=== PATIENT | male | born 1955 | race Caucasian/White ===

== ENCOUNTER 2025-06-30 20:13 | Inpatient (IN) | payer MEDICARE, SELFPAY ==
[2025-06-30] VITALS (11 sets, daily range): BP systolic 118–168; BP diastolic 72–91; PULSE 110–150; RESP 16–25; TEMP 36.3–36.8; O2SAT 90–97; BMI 27.8; BMI 24.9
--- OUTSIDE RECORDS SUMMARY | 2025-06-30 20:24 | XMS_ITS | Clinical Summary ---
Author Organization [facility] Address [address] [place] [address] Phone Care Team Providers Care Pharmacometrician Name Role Phone Unavailable Unavailable Conditions or Problems No information available. Medications No information available. Medications Administered No information available. Allergies, Adverse Reactions, Alerts No information available. Results No information available. Plan of Care No information available. Procedures No information available. Vital Signs No information available. Immunizations No information available. Advance Directives No information available.
--- NOTE | 2025-06-30 20:25 | XR_ITS ---
PROCEDURE INFORMATION: Exam: XR Chest Exam date and time: 06/30/2025 8:54 PM Age: 69 years old Clinical indication: Dyspnea TECHNIQUE: Imaging protocol: Radiologic exam of the chest. Views: 1 view. COMPARISON: No relevant prior studies available. FINDINGS: Lungs: Moderate right lower lobe consolidative atelectasis of indeterminate age. Left lung appears clear Pleural spaces: Unremarkable. No pleural effusion. No pneumothorax. Heart/Mediastinum: Unremarkable. No cardiomegaly. Diaphragm: Eventration of the lateral portion of the right hemidiaphragm Bones/joints: Moderate degenerative changes of the spine. No acute osseous abnormality IMPRESSION: Moderate right lower lobe consolidative atelectasis may represent bland atelectasis or pneumonia
--- NOTE | 2025-06-30 20:28 | HMH.EDGENADL ---
Discharge Plan Disposition Chief Complaint: Shortness of Breath/Dyspnea Prescriptions Prescriptions: No Action atorvastatin [Lipitor] 40 mg tablet 40 mg PO DAILY prednisone 10 mg tablet 10 mg PO DAILY doxycycline hyclate 100 mg capsule 100 mg PO BID tamsulosin [Flomax] 0.4 mg capsule 0.4 mg PO DAILY pantoprazole [Protonix] 40 mg tablet,delayed release (DR/EC) 40 mg PO BID docusate sodium 100 mg capsule 100 mg PO BID furosemide [Lasix] 20 mg tablet 20 mg PO DAILY levalbuterol HCl 1.25 mg/3 mL solution for nebulization 1.25 mg inhalation Q4-6H PRN risperidone [Risperdal] 1 mg tablet 1 mg PO DAILY ipratropium bromide 0.02 % solution 2.5 ml inhalation Q6H PRN metoprolol tartrate 25 mg tablet 25 mg PO BID albuterol sulfate 2.5 mg/0.5 mL solution for nebulization 5 mg inhalation Q6H duloxetine 60 mg capsule,delayed release(DR/EC) 60 mg PO DAILY tizanidine 4 mg capsule 4 mg PO TID PRN Eliquis 5 mg tablet 5 mg PO BID melatonin 3 mg capsule 6 mg PO HS PRN fluticasone propionate [Flonase Allergy Relief] 50 mcg/actuation spray,suspension 1 spray intranasal DAILY Rx Instructions: administer into each nostril ferrous sulfate 324 mg (65 mg iron) tablet,delayed release (DR/EC) 324 mg PO DAILY oxycodone 5 mg tablet 5 mg PO Q8H PRN (Reason: pain) Qty: 90 0RF oxycodone 5 mg tablet 5 mg PO Q8H PRN (Reason: pain) Qty: 7 0RF Rx Instructions: to fill on 06/08/25 for emergency use. Referrals Follow up/Referrals: Brennen Heredia MD [Primary Care Provider, Family Practice] - See instructions Clinical Impressions Clinical Impression: Acute exacerbation of chronic obstructive pulmonary disease, Acute hypoxemic respiratory failure, Pneumonia, Parapneumonic effusion, Sepsis Print Language Print Language: Slovak Discharge ED Provider: Josi Fernandez General Adult HPI General Chief complaint: Shortness of Breath/Dyspnea Stated complaint: SOA Time Seen by Provider: 06/30/25 20:24 History of Present Illness HPI narrative: Patient is a 69-year-old male presenting today in respiratory distress given the fact that he can barely talk history is severely limited he was brought in by EMS for respiratory distress given 125 of Solu-Medrol as well as a DuoNeb. He is able to tell me that he has COPD has had increased cough shortness of breath and wheezing no fevers also has a history of heart failure but is unsure as to how bad this is. His health care is typically done in [place]. Related Data Home Medications ?Medication ?Instructions ?Recorded ?Confirmed albuterol sulfate 2.5 mg/0.5 mL 5 mg inhalation Q6H 06/11/25 06/13/25 solution for nebulization apixaban 5 mg tablet (Eliquis) 5 mg PO BID 06/11/25 06/13/25 atorvastatin 40 mg tablet (Lipitor) 40 mg PO DAILY 06/11/25 06/13/25 docusate sodium 100 mg capsule 100 mg PO BID 06/11/25 06/13/25 doxycycline hyclate 100 mg capsule 100 mg PO BID 06/11/25 06/13/25 duloxetine 60 mg capsule,delayed 60 mg PO DAILY 06/11/25 06/13/25 release ferrous sulfate 324 mg (65 mg 324 mg PO DAILY 06/11/25 06/13/25 iron) tablet,delayed release fluticasone propionate 50 1 spray intranasal DAILY 06/11/25 06/13/25 mcg/actuation nasal spray,suspension (Flonase Allergy Relief) furosemide 20 mg tablet (Lasix) 20 mg PO DAILY 06/11/25 06/13/25 ipratropium bromide 0.02 % 2.5 ml inhalation Q6H PRN 06/11/25 06/13/25 solution for inhalation levalbuterol HCl 1.25 mg/3 mL 1.25 mg inhalation Q4-6H PRN 06/11/25 06/13/25 solution for nebulization melatonin 3 mg capsule 6 mg PO HS PRN 06/11/25 06/13/25 metoprolol tartrate 25 mg tablet 25 mg PO BID 06/11/25 06/13/25 pantoprazole 40 mg tablet,delayed 40 mg PO BID 06/11/25 06/13/25 release (Protonix) prednisone 10 mg tablet 10 mg PO DAILY 06/11/25 06/13/25 risperidone 1 mg tablet (Risperdal) 1 mg PO DAILY 06/11/25 06/13/25 tamsulosin 0.4 mg capsule (Flomax) 0.4 mg PO DAILY 06/11/25 06/13/25 tizanidine 4 mg capsule 4 mg PO TID PRN 06/11/25 06/13/25 Previous Rx's ?Medication ?Instructions ?Recorded oxycodone 5 mg tablet 5 mg PO Q8H PRN pain #90 tabs 06/11/25 oxycodone 5 mg tablet 5 mg PO Q8H PRN pain #7 tabs 06/12/25 Allergies Allergy/AdvReac Type Severity Reaction Status Date / Time No Known Allergies Allergy Verified 06/11/25 09:36 [facility] Disclaimer: The information contained in this section may have been updated after the patient was seen, as this information can be updated by other users. Medical History (Updated 06/30/25 @ 22:27 by Josi Fernandez MD) Lung cancer Onychomycosis Cataracts, bilateral Alteration in physical mobility Abnormal gait Generalized muscle weakness Constipation Pleural effusion Heart failure HTN (hypertension) Depressive disorder Delirium Hyperlipemia Protein calorie malnutrition Malignant neoplasm Sepsis Insomnia Mood disorder Chronic iron deficiency anemia BPH (benign prostatic hyperplasia) A-fib Hypoxic respiratory failure COPD (chronic obstructive pulmonary disease) S/P radiation therapy Cancer of right lung CAD (coronary artery disease) Surgical History (Updated 06/13/25 @ 15:31 by Brennen Heredia MD) History of cholecystectomy Presence of coronary angioplasty implant and graft Social History (Updated 06/13/25 @ 15:28 by Brennen Heredia MD) Smoking Status: Former smoker years smoked: 20 smoking status stop date: april 2024 how long ago did patient quit smokin year alcohol intake: never current occupational status: unemployed Travel in the last 8 weeks?: None marital status: single number of children: 0 Have you lived/traveled outside [place] in past 30 days?: No Contact w/someone who lives/traveled outside US past 30 days?: No Exposure to someone with infectious disease in past 14 days?: No Do you have a fever (greater than 100.4 F or 38 C)?: No Have you tested positive for COVID-19?: No Exposed to someone with COVID-19 in past 14 days?: No Do you have a sore throat?: No Do you have a cough?: No Do you have any weakness?: No Do you have any diarrhea?: No Are you experiencing any unusual bleeding?: No Do you have any muscle aches/pain?: No Do you have any abdominal pain?: No Are you experiencing loss of taste or smell?: No Other Medical History Have you received the Pneumonia Vaccine: Yes ROS Obtained: Yes All systems reviewed & no additional complaints except as documented Physical Exam General General appearance: in distress (Sitting forward tachypneic oxygen saturations 89% on 4 L) Respiratory Respiratory exam: Present other (Patient is in distress has very tight prolonged expiratory phase is tachypneic and using accessory muscle speaking 1 word sentences) Cardiovascular Cardiovascular exam: Present regular rate Neurological Exam Neurological exam: Present alert and oriented X3 Medical Decision Making Medical Records Screening: Per USPSTF and CDC recommendations, given the prevalence of disease in our region, it is our hospital?s policy to screen for HIV and viral Hepatitis for all patients aged 18 and over and those with ongoing risk factors. Julián Inquiry Pt receiving controlled substance: No Vital Signs: 06/30/25 20:19 06/30/25 20:33 06/30/25 20:47 Temperature 97.4 F L Temperature Source Oral Pulse Rate 145 H 128 H Pulse Rate [Right Radial] 150 H Respiratory Rate 16 25 H Blood Pressure 168/84 H 135/91 H Blood Pressure [Right Arm] 168/84 H Blood Pressure Mean [Right Arm] 112 Blood Pressure Source [Right Arm] Automatic Cuff Blood Pressure Position [Right Arm] Supine 02 Sat by Pulse Oximetry 93 L 95 91 L Oxygen Delivery Method Nasal Cannula Oxygen Flow Rate (LPM) 6 06/30/25 21:00 06/30/25 21:30 06/30/25 21:46 Temperature Temperature Source Pulse Rate 125 H 118 H 110 H Pulse Rate [Right Radial] Respiratory Rate 21 23 Blood Pressure 133/84 118/78 Blood Pressure [Right Arm] Blood Pressure Mean [Right Arm] Blood Pressure Source [Right Arm] Blood Pressure Position [Right Arm] 02 Sat by Pulse Oximetry 93 L 94 L Oxygen Delivery Method BiPAP Oxygen Flow Rate (LPM) 06/30/25 22:00 06/30/25 22:21 Temperature Temperature Source Pulse Rate 113 H 117 H Pulse Rate [Right Radial] Respiratory Rate 20 25 H Blood Pressure 138/74 Blood Pressure [Right Arm] Blood Pressure Mean [Right Arm] Blood Pressure Source [Right Arm] Blood Pressure Position [Right Arm] 02 Sat by Pulse Oximetry 96 95 Oxygen Delivery Method BiPAP Nasal Cannula Oxygen Flow Rate (LPM) 6 Lab Data Lab results reviewed: Yes I reviewed the patient's lab results. Lab Results 06/30/25 20:25: WBC 23.4 H*, RBC 3.48 L, Hgb 9.9 L, Hct 32.4 L, MCV 93.1, MCH 28.4, MCHC 30.6 L, RDW 15.9, Plt Count 294, MPV 10.6 H, Neut % (Auto) 80.7 H, Lymph % (Auto) 9.3 L, Republic % (Auto) 9.2, Eos % (Auto) 0.2, Baso % (Auto) 0.3, Neut # (Auto) 18.9 H, Lymph # (Auto) 2.2, Republic # (Auto) 2.2 H, Eos # (Auto) 0.0, Baso # (Auto) 0.1, Total Counted 100, Neutrophils % (Manual) 86 H, Lymphocytes % (Manual) 10, Monocytes % (Manual) 4, Platelet Estimate Normal, RBC Morphology Normal, D-Dimer 4.93 H, Sodium 137, Potassium 4.4, Chloride 99, Carbon Dioxide 31 H, Anion Gap 11.4, BUN 15, Creatinine 0.70, Estimated Creat Clear 92, Estimated GFR 112, Est GFR ( Amer) 136, Glucose 121 H, Calcium 8.6, Total Bilirubin 0.8, AST 34, ALT 21, Alkaline Phosphatase 70, Troponin I < 0.01, NT-Pro-B Natriuret Pep 636 H, Total Protein 6.8, Albumin 4.5, Globulin 2.3, Albumin/Globulin Ratio 2.0 H 06/30/25 20:26: VBG pH 7.38, VBG pCO2 50.8, VBG pO2 108.1 H, VBG HCO3 29.4, VBG Total CO2 30.9 H, VBG O2 Saturation 97.9 H, VBG Base Excess 4.3 H, VBG Lactic Acid 2.2 H 06/30/25 20:25 06/30/25 20:25 Orders (Tests/Meds): ED MEDICATIONS Discontinued Medications Generic Name Dose Route Start Last Admin Trade Name Freq PRN Reason Stop Dose Admin Albuterol/Ipratropium 9 ml 06/30/25 20:25 06/30/25 20:44 Ipratropium/Albuterol 3 Ml Neb IH 06/30/25 20:26 9 ml ONCE ONE Administration Magnesium Sulfate 2 gm in 50 mls @ 50 mls/hr 06/30/25 20:25 06/30/25 21:54 Magnesium Sulfate 2gm/50ml Premix IV 06/30/25 21:24 Infused ONCE ONE Infusion Ceftriaxone Sodium 1 gm/ 50 mls @ 100 mls/hr 06/30/25 20:25 06/30/25 21:24 Sodium Chloride IV 06/30/25 20:54 Infused ONCE ONE Infusion Azithromycin 500 mg/ Sodium 250 mls @ 250 mls/hr 06/30/25 20:26 06/30/25 22:00 Chloride IV 06/30/25 20:27 Infused ONCE ONE Infusion Iopamidol 70 ml 06/30/25 22:11 06/30/25 22:12 Iopamidol-370 (76%);100ml Bottle IV 06/30/25 22:12 70 ml ONCE ONE Administration Sodium Chloride 50 ml 06/30/25 22:11 06/30/25 22:12 0.9 % Sodium Chloride 50 Ml Vial IV 06/30/25 22:12 50 ml ONCE ONE Administration Sodium Chloride 10 ml 06/30/25 22:11 06/30/25 22:12 Sodium Chloride 0.9% 10ml Syr (Rad Only) IV 06/30/25 22:12 10 ml ONCE ONE Administration ORDERS Category Date Time Status CT angio chest PE protocol Stat Cat Scan 06/30/25 21:11 Taken CXR --portable [XR chest portable] Stat Exams 06/30/25 20:25 Taken POCUS Point of Care (ER Only) Stat Exams 06/30/25 20:27 Taken BNP [NT Pro Brain Natriuretic Pep.] Stat Lab 06/30/25 20:25 Completed CBC w/Auto Diff [Complete Blood Count Auto Diff] Stat Lab 06/30/25 20:25 Completed CMP [Comprehensive Metabolic Panel] Stat Lab 06/30/25 20:25 Completed D-Dimer Stat Lab 06/30/25 20:25 Completed Trop I [Troponin I] Stat Lab 06/30/25 20:25 Completed Troponin I Q3H Lab 06/30/25 23:30 Ordered Troponin I Q3H Lab 07/01/25 02:30 Ordered Blood Culture Stat Micro 06/30/25 20:39 Received Venous Blood Gas Stat RT 06/30/25 20:26 Completed Tissue Perfus/Sepsis Re-Eval Sepsis Re-Evaluation Performed: Yes Date Performed: 06/30/25 Time Performed: 22:25 Medical Decision Narrative: 69-year-old presenting today in respiratory distress with significant increased work of breathing very tight on my exam most likely COPD exacerbation we will get aggressive with his management including magnesium noninvasive positive pressure ventilation continuous breathing treatments he is already had 125 of Solu-Medrol prior to being seen by us but will also give him Rocephin azithromycin. Differential also includes pneumonia pulmonary embolism heart failure exacerbation etc. Reassessment 1025 patient dramatically improved on the BiPAP and his other COPD medications ultimately we are able to take him off BiPAP with almost normal respiratory effort at this point. Chest x-ray was performed which showed a right lower lobe abnormality pleural abnormality concerning for possible pneumonia versus other pathology also his D-dimer was elevated. CT scan was performed I personally interpreted which shows a right lower lobe consolidation versus atelectasis versus mass with surrounding fluid working diagnosis is pneumonia with parapneumonic effusion. Patient also has a white blood cell count of 23 he was tachycardic tachypneic this all consistent with sepsis. I did not do an aggressive fluid bolus resuscitation for this patient given his history of heart failure and his maps remained above 65. Serial perfusion assessments were normal. Patient will likely need a pulmonary consult during this hospitalization but this not emergent at this point. Patient was admitted to hospital medicine for further evaluation and management. Critical Care Critical Care Time Critical Care Time: Yes Attestation: On 06/30/25, the high probability of a clinically significant, sudden or life threatening deterioration of the following system(s) required my full and direct attention, intervention and personal management. The time I documented below is in addition to time spent performing reported procedures but includes the following listed in this critical care notation. Total Time Total Critical Care Time: 65
[2025-06-30 20:37] LABS: VBG HCO3 29.4 mmol/L (23-30); VBG PCO2 50.8 mmol/L (35-51); VBG PH 7.38 mmol/L (7.31-7.41); VBG PO2 108.1 mmol/L (28-40)
[2025-06-30 20:38] LABS: Hematocrit 32.4 % (42.0-52.0); Hemoglobin 9.9 g/dL (14.1-18.0); Immature Granulocytes % 0.3 %; Mean Corpuscular HGB Conc 30.6 g/dL (31.8-35.4); Mean Corpuscular Hemoglobin 28.4 pg (27.0-31.2); Mean Corpuscular Volume 93.1 fl (80-94); Nucleated Red Blood Cells % 0 %; Platelet Count 294 K/mm3 (142-424); Red Blood Count 3.48 M/mm3 (4.60-6.20); Red Cell Distribution Width-SD 54.0 fL; White Blood Count 23.4 K/mm3 (4.8-10.8)
[2025-06-30 20:38] LABS: Lactate Venous 2.2 mmol/L (0.4-2.0)
[2025-06-30 20:44] LABS: Chloride 99 mmol/L (98-107)
[2025-06-30] MEDS: IPRATROPIUM/ALBUTEROL 3 ML NEB 9 ML IH (20:44)
[2025-06-30 20:45] LABS: Albumin Level 4.5 g/dl (3.5-5.0); Potassium 4.4 mmoL/L (3.5-5.1); Sodium 137 mmol/L (136-145)
[2025-06-30] MEDS: MAGNESIUM SULFATE IN WATER 2 GM/50 ML PIGGYBACK IV (20:47)
[2025-06-30 20:48] LABS: Alanine Aminotransferase 21 U/L (12-78); Albumin/Globulin Ratio 2.0 (1.1-1.8); Alkaline Phosphatase 70 U/L (38-126); Anion Gap 11.4 mEq/L (5-15); Aspartate Amino Transferase 34 U/L (17-59); Bilirubin,Total 0.8 mg/dl (0.2-1.3); Blood Urea Nitrogen 15 mg/dl (9-20); Calcium 8.6 mg/dl (8.4-10.2); Carbon Dioxide 31 mmol/L (22.0-30.0); Creatinine Clearance Estimated 92 mL/min (50-200); Creatinine,Serum 0.70 mg/dl (0.66-1.25); Estimated Glomerular Filt Rate 112 ml/min (>60); GFR (African American) 136 ML/MIN (>60); Globulin 2.3 g/dL (1.3-3.2); Glucose 121 mg/dl (74-100); Total Protein,Serum 6.8 g/dl (6.3-8.2)
[2025-06-30 20:57] LABS: D-Dimer 4.93 ug/mL (0.0-0.5); NT Pro Brain Natriuretic Pep. 636 pg/mL (0-125)
[2025-06-30] MEDS: AZITHROMYCIN 500 MG in 0.9 % SODIUM CHLORIDE 250 ML 250 MG IV (20:59)
[2025-06-30 21:00] LABS: Troponin I < 0.01 ng/ml (0.00-0.034)
--- NOTE | 2025-06-30 21:11 | CT_ITS ---
PROCEDURE INFORMATION: Exam: CTA Chest With Contrast Exam date and time: 06/30/2025 10:08 PM Age: 69 years old Clinical indication: Abnormal findings; Other: Elevated dimer; Dyspnea; Additional info: Dyspnea, elevated dimer, abnormal cxr TECHNIQUE: Imaging protocol: Computed tomographic angiography of the chest with contrast. Exam focused on the arteries. 3D rendering (Not supervised by radiologist): MIP and/or 3D reconstructed images were created by the technologist. Radiation optimization: All CT scans at this facility use at least one of these dose optimization techniques: automated exposure control; mA and/or kV adjustment per patient size (includes targeted exams where dose is matched to clinical indication); or iterative reconstruction. Contrast material: ISO 370; Contrast volume: 70 ml; Contrast route: INTRAVENOUS (IV); COMPARISON: CR XR CHEST PORTABLE 06/30/2025 8:54 PM FINDINGS: Pulmonary arteries: Normal. No pulmonary emboli. Aorta: Unremarkable. No aortic aneurysm. No aortic dissection. Lungs: There is near-complete right lower lobe atelectasis exhibiting heterogeneous parenchymal enhancement concerning for areas of pulmonary necrosis/infarction. Left lung appears clear. Pleural spaces: Moderate volume right pleural fluid. No pneumothorax. Heart: Unremarkable. No cardiomegaly. No pericardial effusion. Lymph nodes: Unremarkable. No enlarged lymph nodes. Bones/joints: Moderate degenerative changes of the lower thoracic and upper lumbar spine. No vertebral body compression. No acute fracture. Soft tissues: Unremarkable. IMPRESSION: Near-complete right lower lobe consolidative atelectasis with heterogeneous enhancement suggesting areas of pulmonary necrosis/infarction. This suggests chronic right lower lobe bronchial obstruction which may be due to mucous plugging or endobronchial mass lesion. No prominent extrinsic mass identified. Moderate volume right pleural fluid also noted
[2025-06-30 21:26] LABS: RBC Morphology Normal; Total Cells Counted 100
[2025-06-30] MEDS: IOPAMIDOL-370 (76%);100ML BOTTLE 70 ML IV (22:12)
[2025-06-30] MEDS: SODIUM CHLORIDE 0.9% 10ML SYR (RAD ONLY) 10 ML IV (22:12)
[2025-06-30] MEDS: 0.9 % SODIUM CHLORIDE 50 ML VIAL IV (22:12)
--- NOTE | 2025-06-30 22:41 | PC.NURSE ---
Report given to regino RN
--- NOTE | 2025-06-30 22:42 | P.HP_ITS ---
History of Present Illness *Admission Date: 06/30/25 *Reason for visit:: Shortness of breath *History of present illness: Patient with past medical history of lung cancer status post radiation at [facility], [place] (adenocarcinoma RLL 2022 status post SBRT), atrial fibrillation, COPD on 4 L of oxygen, hypertension, hyperlipidemia, BPH. Patient presents from custodial via ambulance with respiratory distress. Patient extremely poor historian, and was unable to tell me that he came from [facility] at time of my bedside evaluation. Per record review on [facility] noted that patient originally treated at [facility] May 05 to May 18 for acute on chronic respiratory failure. Patient underwent thoracentesis 05/08 and bronchoscopy/EBUS 05/11 at [facility]. Oncology at that time recommended PET/CT follow-up scan. Patient underwent second thoracentesis at [facility] 05/16 with 1.3 L removed. Patient also completed course of antibiotics during [facility] hospitalization. Patient then discharged to [facility]. For unknown reasons, patient transferred to [facility] SNF June 09, 2025. [facility] sent patient to emergency room today for shortness of breath evaluation. As previously mentioned, patient extremely inaccurate historian, but states he has been short of breath for the past 2 to 3 days. Also complains of chest discomfort over the past 2 to 3 days. Describes chest discomfort as 8/10, achy, substernal, nonradiating, lasting minutes, without exacerbating or ameliorating factors. States that he recently had rectal surgery and black blood wound, and I do not know why. Denies fevers, chills, known sick contacts, productive cough, GI bleeding.CTA chest done in emergency room shows possible parapneumonic effusion or airspace disease. [facility] Disclaimer: The information contained in this section may have been updated after the patient was seen, as this information can be updated by other users. Medical History (Updated 06/30/25 @ 22:27 by Josi Fernandez MD) Lung cancer Onychomycosis Cataracts, bilateral Alteration in physical mobility Abnormal gait Generalized muscle weakness Constipation Pleural effusion Heart failure HTN (hypertension) Depressive disorder Delirium Hyperlipemia Protein calorie malnutrition Malignant neoplasm Sepsis Insomnia Mood disorder Chronic iron deficiency anemia BPH (benign prostatic hyperplasia) A-fib Hypoxic respiratory failure COPD (chronic obstructive pulmonary disease) S/P radiation therapy Cancer of right lung CAD (coronary artery disease) Surgical History (Updated 06/13/25 @ 15:31 by Brennen Heredia MD) History of cholecystectomy Presence of coronary angioplasty implant and graft Social History (Updated 06/13/25 @ 15:28 by Brennen Heredia MD) Smoking Status: Current every day smoker years smoked: 20 smoking status stop date: april 2024 how long ago did patient quit smokin year alcohol intake: never current occupational status: unemployed Travel in the last 8 weeks?: None marital status: single number of children: 0 Have you lived/traveled outside US in past 30 days?: No Contact w/someone who lives/traveled outside US past 30 days?: No Exposure to someone with infectious disease in past 14 days?: No Do you have a fever (greater than 100.4 F or 38 C)?: No Have you tested positive for COVID-19?: No Exposed to someone with COVID-19 in past 14 days?: No Do you have a sore throat?: No Do you have a cough?: No Do you have any weakness?: No Do you have any diarrhea?: No Are you experiencing any unusual bleeding?: No Do you have any muscle aches/pain?: No Do you have any abdominal pain?: No Are you experiencing loss of taste or smell?: No Other Medical History Have you received the Pneumonia Vaccine: Yes Review of Systems Review of Systems Review of systems:: pertinent systems reviewed and negative unless documented below Meds Home Medications and Allergies Home Medications ?Medication ?Instructions ?Recorded ?Confirmed ?Type albuterol sulfate 2.5 mg/0.5 mL 5 mg inhalation Q6H 06/13/25 History solution for nebulization apixaban 5 mg tablet (Eliquis) 5 mg PO BID 06/11/25 History atorvastatin 40 mg tablet (Lipitor) 40 mg PO DAILY 06/13/25 History docusate sodium 100 mg capsule 100 mg PO BID 06/11/25 06/13/25 History doxycycline hyclate 100 mg capsule 100 mg PO BID 06/1106/13/25 History duloxetine 60 mg capsule,delayed 60 mg PO DAILY 06/13/25 History release ferrous sulfate 324 mg (65 mg 324 mg PO DAILY 06/11/25 06/13/25 History iron) tablet,delayed release fluticasone propionate 50 1 spray intranasal DAILY 06/13/25 History mcg/actuation nasal spray,suspension (Flonase Allergy Relief) furosemide 20 mg tablet (Lasix) 20 mg PO DAILY 06/13/25 History ipratropium bromide 0.02 % 2.5 ml inhalation Q6H PRN 1 06/13/25 History solution for inhalation levalbuterol HCl 1.25 mg/3 mL 1.25 mg inhalation Q4-6H PRN 06/11/25 06/13/25 History solution for nebulization melatonin 3 mg capsule 6 mg PO HS PRN 06/11/2505/24 History metoprolol tartrate 25 mg tablet 25 mg PO BID 06/11/25 06/13/25 History oxycodone 5 mg tablet 5 mg PO Q8H PRN pain #90 tab s 06/11/25 06/13/25 Rx pantoprazole 40 mg tablet,delayed 40 mg PO BID 06/13/25 History release (Protonix) prednisone 10 mg tablet 10 mg PO DAILY 06/11/2505/24 History risperidone 1 mg tablet (Risperdal) 1 mg PO DAILY 05/2406/13/25 History tamsulosin 0.4 mg capsule (Flomax) 0.4 mg PO DAILY 06/13/25 History tizanidine 4 mg capsule 4 mg PO TID PRN 06/11/25 History oxycodone 5 mg tablet 5 mg PO Q8H PRN pain #7 tabs 06/12/25 06/13/25 Rx New Prescriptions to Start Prescriptions: Allergies Allergy/AdvReac Type Severity Reaction Status Date / Time No Known Allergies Allergy Verified 06/11/25 09:36 Exam Data for Last 24 hours Vital signs and Labs for Last 24 Hours: Temp Pulse Resp BP Pulse Ox O2 Del Method O2 Flow Rate 97.4 F L 117 H 25 H 138/74 95 Nasal Cannula 4 06/30/25 20:33 06/30/25 22:21 06/30/25 22:21 06/30/25 22:21 06/30/25 22:21 06/30/25 22:21 06/30/25 22:21 Laboratory Results - last 24 hr 06/30/25 20:25: WBC 23.4 H*, RBC 3.48 L, Hgb 9.9 L, Hct 32.4 L, MCV 93.1, MCH 28.4, MCHC 30.6 L, RDW 15.9, Plt Count 294, MPV 10.6 H, Neut % (Auto) 80.7 H, Lymph % (Auto) 9.3 L, [place] % (Auto) 9.2, Eos % (Auto) 0.2, Baso % (Auto) 0.3, Neut # (Auto) 18.9 H, Lymph # (Auto) 2.2, [place] # (Auto) 2.2 H, Eos # (Auto) 0.0, Baso # (Auto) 0.1, Total Counted 100, Neutrophils % (Manual) 86 H, Lymphocytes % (Manual) 10, Monocytes % (Manual) 4, Platelet Estimate Normal, RBC Morphology Normal, D-Dimer 4.93 H, Sodium 137, Potassium 4.4, Chloride 99, Carbon Dioxide 31 H, Anion Gap 11.4, BUN 15, Creatinine 0.70, Estimated Creat Clear 92, Estimated GFR 112, Est GFR ( Amer) 136, Glucose 121 H, Calcium 8.6, Total Bilirubin 0.8, AST 34, ALT 21, Alkaline Phosphatase 70, Troponin I < 0.01, NT-Pro-B Natriuret Pep 636 H, Total Protein 6.8, Albumin 4.5, Globulin 2.3, Albumin/Globulin Ratio 2.0 H 06/30/25 20:26: VBG pH 7.38, VBG pCO2 50.8, VBG pO2 108.1 H, VBG HCO3 29.4, VBG Total CO2 30.9 H, VBG O2 Saturation 97.9 H, VBG Base Excess 4.3 H, VBG Lactic Acid 2.2 H I & O for Last 24 hours: Intake & Output 06/27/25 06/28/25 06/29/25 06/30/25 23:59 23:59 23:59 23:59 Intake Total 350 / 350 Balance 350 / 350 Weight 90.718 kg Constitutional Constitutional: no acute distress *Routine HEENT Exam Head: Present normocephalic Eye: Present EOMI ENT: Present mucous membranes moist *Routine Neck Exam Neck: Present supple and full ROM *Routine Respiratory Exam Respiratory: Present prolonged expiratory phase and diminished air movement *Routine Cardiovascular Exam Cardiovascular: Present RRR and Normal S1 *Routine Abdominal Exam Abdominal: Present soft and normoactive bowel sounds *Routine Rectal Exam Rectal:: deferred *Routine Genitalia Exam Genitalia:: deferred *Routine Extremities Exam Extremities: Present full ROM *Routine Skin Exam Skin: Present intact *Routine Neurological Exam Neurological: Present alert and oriented X3 Assessment and Plan *Assessment and plan (1) Parapneumonic effusion: Status: Acute Category: Medical Code(s): J18.9 - Pneumonia, unspecified organism; J91.8 - Pleural effusion in other conditions classified elsewhere (2) Pneumonia: Status: Acute Category: Medical Code(s): J18.9 - Pneumonia, unspecified organism (3) Acute hypoxemic respiratory failure: Status: Acute Category: Medical Code(s): J96.01 - Acute respiratory failure with hypoxia (4) Acute exacerbation of chronic obstructive pulmonary disease: Status: Acute Category: Medical Code(s): J44.1 - Chronic obstructive pulmonary disease with (acute) exacerbation (5) Lung cancer: Status: Acute Category: Medical Code(s): C34.90 - Malignant neoplasm of unspecified part of unspecified bronchus or lung (6) Heart failure: Status: Acute Category: Medical Code(s): I50.9 - Heart failure, unspecified (7) Pleural effusion: Status: Acute Category: Medical Code(s): J90 - Pleural effusion, not elsewhere classified Plan Patient with past medical history of lung cancer status post radiation at [facility] [place] (adenocarcinoma RLL 2022 status post SBRT), atrial fibrillation, COPD on 4 L of oxygen, hypertension, hyperlipidemia, BPH. Patient presents from custodial via ambulance with respiratory distress. Patient extremely poor historian, and was unable to tell me that he came from [facility] at time of my bedside evaluation. Patient admitted for COPD exacerbation with possible parapneumonic effusion. Problems listed below. Healthcare associated pneumonia: ? Admit to ICU on telemetry and continuous pulse ox monitoring. Zosyn 3.375 IV every 6 x 7 days, vancomycin IV pharmacy to dose. Doxycycline 100 mg IV every 12 x 5 days consult pulmonary for possible thoracentesis during hospitalization. Status postthoracentesis x 2 during hospitalization [facility] April 2025 (see HPI for details). Check respiratory panel PCR, urine strep pneumonia/Legionella antigen. Check sputum culture patient able to make sputum. Blood cultures in emergency room at time of admission. I ordered procalcitonin, CBC, BMP, mag for a.m. WBC 23.5, Hg 9.9, platelets 294 at time of admission. CTA chest shows possible airspace disease versus parapneumonic effusion per my interpretation. Lactic acid 2.2 at time of admission. Will repeat lactic acid in AM. NA 137, K4.4, serum CO2 31, BUN 15, CR 0.7. I will follow BUN/creatinine closely while patient on Zosyn/vancomycin IV. DuoNebs 3 mL inhaled every 6 while awake, albuterol 2.5 mg inhaled every 4 hours as needed SOB. Tylenol 650 mg p.o. every 6 hours pain or fever. Oxycodone 5 mg p.o. every 6 hours as needed moderate pain. ? Patient weaned from BiPAP in ED. VBG done in ED showed pH 7.38, pCO2 50.8, PaO2 108.1. Will consider repeating VBG at a.m. or sooner overnight if patient develops respiratory distress. Lung cancer: Adenocarcinoma, see HPI for details. Status post bronch/EBUS at [facility] April 2025. Previously treated with radiation at [facility] [place]. Chest pain: Serial troponins during hospitalization. Telemetry monitoring overnight. Consult cardiology. Ordered repeat troponin for a.m. Troponins in ED <0.01, BNP 636 in ED. Neuropathic pain: Cymbalta 60 mg p.o. daily Headache: Imitrex 50 mg as needed twice daily for headache not resolved by Tylenol. Mood disorder: BuSpar 5 mg p.o. 3 times daily, Risperdal 1 mg p.o. daily GERD: 40 mg p.o. daily Hypercholesterolemia atorvastatin 40 mg p.o. daily BPH: Flomax 0.4 mL p.o. daily Anemia ferrous sulfate 324 milligrams p.o. daily. Hemoglobin 9.9 at time of admission. Atrial fibrillation: Eliquis 5 mg p.o. twice daily CHF: Home meds Lasix 20 mg p.o. daily, metoprolol 25 mg p.o. twice daily MDM ? I spoke with emergency room provider at time of hospital admission. ? I made decision to admit patient to hospital for shortness of breath related to COPD/pneumonia and chest pain evaluation. ? NSTEMI complicated patient with acute chest pain/COPD exacerbation/pneumonia issues. Chronic neuropathic pain, headache, mood disorder, GERD, hypercholesterolemia, BPH, anemia, atrial fibrillation issues. 45 minutes of total time spent with patient myself, 06/30/2025 Discharge planning: Patient will likely spend over 2 midnights in hospital during this hospitalization.
--- NOTE | 2025-06-30 22:47 | PC.NURSE ---
Patient arrived to floor via stretcher from ED at 22:46.
[2025-06-30] MEDS: SODIUM CHLORIDE 3% 15ML NEB 3 ML IH (23:29)
[2025-06-30] MEDS: IPRATROPIUM/ALBUTEROL 3 ML NEB IH (23:29)
[2025-06-30] MEDS: PIPERCILLIN/TAZO 3.375 GM in 0.9 % SODIUM CHLORIDE 50 ML IV (23:50)
[2025-06-30] MEDS: DOXYCYCLINE HYCLATE 100 MG in 0.9 % SODIUM CHLORIDE 250 ML 166.67 MG IV (23:50)
[2025-06-30] MEDS: VANCOMYCIN/WATER FOR INJ (PEG) 1.5 GM/300 ML PIGGYBACK IV (23:52)
[2025-06-30] MEDS: METHYLPREDNISOLONE SOD SUCC 40MG VIAL 40 MG IV (23:53)
[2025-06-30] MEDS: VANCOMYCIN CONSULT REQUEST 1 EACH NOTAPPLIC (23:53)
[2025-06-30] MEDS: ACETAMINOPHEN 325MG TAB 650 MG PO (23:55)
[2025-06-30] MEDS: METOPROLOL TARTRATE 25MG TABLET 25 MG PO (23:56)
[2025-06-30] MEDS: PANTOPRAZOLE 40MG TABLET 40 MG PO (23:56)
[2025-07-01] VITALS (10 sets, daily range): BP systolic 129–141; BP diastolic 68–86; PULSE 66–130; RESP 14–18; TEMP 36.5–36.8; O2SAT 90–96; BMI 25.4
[2025-07-01 00:17] LABS: Adenovirus,PCR Not Detected (NotDetected); Chlamydophila Pneumoniae, PCR Not Detected (NotDetected); Coronavirus 19, PCR Not Detected (NotDetected); Coronovirus HKU1,PCR Not Detected (NotDetected); Influenza A, PCR Not Detected (NotDetected); Influenza AH1, 2009 Not Detected (NotDetected); Influenza AH1, PCR Not Detected (NotDetected); Influenza AH3,PCR Not Detected (NotDetected); Influenza B, PCR Not Detected (NotDetected); Mycoplasma Pneumoniae, PCR Not Detected (NotDetected); Parainfluenza 1, PCR Not Detected (NotDetected); Parainfluenza 2, PCR Not Detected (NotDetected); Parainfluenza 3, PCR Not Detected (NotDetected); Parainfluenza 4, PCR Not Detected (NotDetected)
[2025-07-01] MEDS: MELATONIN 5MG TABLET 3 MG PO (00:30)
[2025-07-01 00:37] LABS: Reflex Lactic Add Lactic Reflex
[2025-07-01 00:45] LABS: Procalcitonin 0.288 ng/mL (0.0-2.0); Troponin I < 0.01 ng/ml (0.00-0.034)
--- NOTE | 2025-07-01 01:15 | PC.NURSE ---
Addendum entered by Nori Robbins RN 07/01/25 04:15: No further reports of left lower chest pain (finding was reported earlier this shift) were made. No complaints of dizziness, nausea, lightheadedness, anxiety, etc. as well. Addendum entered by Nori Robbins RN 07/01/25 04:00: Upon assessment this morning, the patient stated that he feels a little better since receiving plethora of medications this shift (see MAR; initiation of antibiotic regimen, Solu-Medrol, breathing treatments). Tylenol was administered per MAR for headache complaint, and melatonin was administered per OCT as a sleep aid. Other scheduled medications also administered per MAR. Respirations are more even and unlabored, improvement from labored breathing upon arrival to the floor. Audible wheezing no longer present. Oxygen saturations remain >90% on 4 L of oxygen via nasal cannula. Unable to collect sputum sample thus far, no productive cough at this time. Patient has had both wakeful periods and resting periods throughout the night. Physical assessment performed as appropriately for this shift (see nursing shift biophysical intervention). Heart rate tachycardic. He has transferred between bed and chair this shift with standby assistance to x1 assistance. Urinal at bedside for voiding needs. At this time, the patient is resting in bed without any further complaints. No acute changes noted thus far. Call light within reach. Original Note: Patient is alert and oriented, but intermittent confusion was noticed during admission assessments (expressed a poor recall of medical history, confusion to personal age and current time, etc.) and upon having further conversations with the patient. He is unable to state/confirm the exact medications that he takes at [facility]. Home medication reconciliation was completed to the best of my ability by utilizing the patient's medical records from [place] + external medication history.
[2025-07-01] MEDS: PIPERCILLIN/TAZO 3.375 GM in 0.9 % SODIUM CHLORIDE 50 ML IV (05:42)
[2025-07-01] MEDS: METHYLPREDNISOLONE SOD SUCC 40MG VIAL 40 MG IV ×2 (05:53→14:02)
[2025-07-01 06:49] LABS: Hematocrit 29.3 % (42.0-52.0); Immature Granulocytes % 0.3 %; Mean Corpuscular HGB Conc 29.4 g/dL (31.8-35.4); Mean Corpuscular Hemoglobin 27.6 pg (27.0-31.2); Mean Corpuscular Volume 93.9 fl (80-94); Nucleated Red Blood Cells % 0 %; Platelet Count 168 K/mm3 (142-424); Red Blood Count 3.12 M/mm3 (4.60-6.20); Red Cell Distribution Width-SD 54.4 fL; White Blood Count 16.8 K/mm3 (4.8-10.8)
[2025-07-01 06:58] LABS: Lactic Acid Follow Up (RFLX 1) 1.8 mmol/L (0.7-2.1)
[2025-07-01 07:01] LABS: Anion Gap 8.0 mEq/L (5-15); Blood Urea Nitrogen 12 mg/dl (9-20); Calcium 8.7 mg/dl (8.4-10.2); Carbon Dioxide 31 mmol/L (22.0-30.0); Chloride 100 mmol/L (98-107); Creatinine Clearance Estimated 84 mL/min (50-200); Creatinine,Serum 0.50 mg/dl (0.66-1.25); Estimated Glomerular Filt Rate 166 ml/min (>60); GFR (African American) 201 ML/MIN (>60); Glucose 147 mg/dl (74-100); Magnesium 2.2 mg/dl (1.6-2.3); Potassium 5.0 mmoL/L (3.5-5.1); Sodium 134 mmol/L (136-145)
[2025-07-01] MEDS: IPRATROPIUM/ALBUTEROL 3 ML NEB IH ×4 (07:15→23:54)
[2025-07-01 07:20] LABS: Hemoglobin 8.8 g/dL (14.1-18.0)
[2025-07-01 07:26] LABS: Troponin I < 0.01 ng/ml (0.00-0.034)
[2025-07-01 08:29] LABS: RBC Morphology Normal; Total Cells Counted 100
--- NOTE | 2025-07-01 08:58 | EXP.PHA.CONS ---
Pharmacy Consult Date: 07/01/25 Time: 08:58 Referring provider: DR. GREENWOOD Reason for Consult:: VANCOMYCIN DOSING Allergies Allergy/AdvReac Type Severity Reaction Status Date / Time No Known Allergies Allergy Verified 06/11/25 09:36 Home Medications ?Medication ?Instructions ?Recorded ?Confirmed ?Type albuterol sulfate 2.5 mg/0.5 mL 5 mg inhalation Q6H 06/11/25 07/01/25 History solution for nebulization apixaban 5 mg tablet (Eliquis) 5 mg PO BID 06/11/25 07/01/25 History atorvastatin 40 mg tablet (Lipitor) 40 mg PO DAILY 06/11/25 07/01/25 History docusate sodium 100 mg capsule 100 mg PO BID 06/11/25 07/01/25 History duloxetine 60 mg capsule,delayed 60 mg PO DAILY 06/11/25 07/01/25 History release ferrous sulfate 324 mg (65 mg 324 mg PO DAILY 06/11/25 07/01/25 History iron) tablet,delayed release furosemide 20 mg tablet (Lasix) 20 mg PO DAILY 06/11/25 07/01/25 History levalbuterol HCl 1.25 mg/3 mL 1.25 mg inhalation Q4-6H PRN 06/11/25 07/01/25 History solution for nebulization Shortness Of Breath Or Wheezing melatonin 3 mg capsule 6 mg PO HS PRN Insomnia 06/11/25 07/01/25 History metoprolol tartrate 25 mg tablet 25 mg PO BID 06/11/25 07/01/25 History pantoprazole 40 mg tablet,delayed 40 mg PO BID 06/11/25 07/01/25 History release (Protonix) prednisone 10 mg tablet 10 mg PO DAILY 06/11/25 07/01/25 History tamsulosin 0.4 mg capsule (Flomax) 0.4 mg PO DAILY 06/11/25 07/01/25 History tizanidine 4 mg capsule 4 mg PO TID PRN Muscle Spasm 06/11/25 07/01/25 History buspirone 5 mg tablet 5 mg PO TID 07/01/25 07/01/25 History fluticasone fur. 200 mcg-umeclid 1 inh inhalation DAILY 07/01/25 07/01/25 History 62.5 mcg-vilant 25 mcg inhalat.powder (Trelegy Ellipta) New Prescriptions to Start Prescriptions: Height: 1.8 m Weight: 82.554 kg Laboratory Results:: Laboratory Results - last 24 hr 06/30/25 00:10: Chlamy pneumoniae PCR Not detected, Adenovirus (PCR) Not detected, B. pertussis DNA (PCR) Not detected, Coronavirus OC43 (PCR) Not detected, Coronavirus HKU1 (PCR) Not detected, Coronavirus 229E (PCR) Not detected, SARS-CoV-2 (PCR) Not detected, Coronavirus NL63 (PCR) Not detected, Human Metapneumovir PCR Not detected, Influenza A (H1) PCR Not detected, Influ A (H1N1/09) PCR Not detected, Influenza A (H3) PCR Not detected, Influenza Type A (PCR) Not detected, Influenza Type B (PCR) Not detected, M. pneumoniae (PCR) Not detected, Parainfluenza 1 (PCR) Not detected, Parainfluenza 2 (PCR) Not detected, Parainfluenza 3 (PCR) Not detected, Parainfluenza 4 (PCR) Not detected, RSV (PCR) Not detected, Entero/Rhino (PCR) Not detected 06/30/25 20:25: WBC 23.4 H*, RBC 3.48 L, Hgb 9.9 L, Hct 32.4 L, MCV 93.1, MCH 28.4, MCHC 30.6 L, RDW 15.9, Plt Count 294, MPV 10.6 H, Neut % (Auto) 80.7 H, Lymph % (Auto) 9.3 L, [place] % (Auto) 9.2, Eos % (Auto) 0.2, Baso % (Auto) 0.3, Neut # (Auto) 18.9 H, Lymph # (Auto) 2.2, [place] # (Auto) 2.2 H, Eos # (Auto) 0.0, Baso # (Auto) 0.1, Total Counted 100, Neutrophils % (Manual) 86 H, Lymphocytes % (Manual) 10, Monocytes % (Manual) 4, Platelet Estimate Normal, RBC Morphology Normal, D-Dimer 4.93 H, Sodium 137, Potassium 4.4, Chloride 99, Carbon Dioxide 31 H, Anion Gap 11.4, BUN 15, Creatinine 0.70, Estimated Creat Clear 92, Estimated GFR 112, Est GFR ( Amer) 136, Glucose 121 H, Calcium 8.6, Total Bilirubin 0.8, AST 34, ALT 21, Alkaline Phosphatase 70, Troponin I < 0.01, NT-Pro-B Natriuret Pep 636 H, Total Protein 6.8, Albumin 4.5, Globulin 2.3, Albumin/Globulin Ratio 2.0 H 06/30/25 20:26: VBG pH 7.38, VBG pCO2 50.8, VBG pO2 108.1 H, VBG HCO3 29.4, VBG Total CO2 30.9 H, VBG O2 Saturation 97.9 H, VBG Base Excess 4.3 H, VBG Lactic Acid 2.2 H 07/01/25 00:10: Troponin I < 0.01, Procalcitonin 0.288 07/01/25 06:08: WBC 16.8 H D, RBC 3.12 L, Hgb 8.8 L D, Hct 29.3 L, MCV 93.9, MCH 27.6, MCHC 29.4 L, RDW 15.8, Plt Count 168 D, MPV 9.9, Neut % (Auto) 96.3 H, Lymph % (Auto) 2.7 L, [place] % (Auto) 0.6 L, Eos % (Auto) 0.0 L, Baso % (Auto) 0.1, Neut # (Auto) 16.2 H, Lymph # (Auto) 0.5 L, [place] # (Auto) 0.1, Eos # (Auto) 0.0, Baso # (Auto) 0.0, Total Counted 100, Neutrophils % (Manual) 98 H, Lymphocytes % (Manual) 2 L, Platelet Estimate Normal, RBC Morphology Normal, Sodium 134 L, Potassium 5.0, Chloride 100, Carbon Dioxide 31 H, Anion Gap 8.0, BUN 12, Creatinine 0.50 L D, Estimated Creat Clear 84, Estimated GFR 166, Est GFR ( Amer) 201 D, Glucose 147 H D, Lactate 1.8, Calcium 8.7, Magnesium 2.2, Troponin I < 0.01 Medical History: Medical History (Updated 06/30/25 @ 22:27 by Josi Fernandez MD) Lung cancer Onychomycosis Cataracts, bilateral Alteration in physical mobility Abnormal gait Generalized muscle weakness Constipation Pleural effusion Heart failure HTN (hypertension) Depressive disorder Delirium Hyperlipemia Protein calorie malnutrition Malignant neoplasm Sepsis Insomnia Mood disorder Chronic iron deficiency anemia BPH (benign prostatic hyperplasia) A-fib Hypoxic respiratory failure COPD (chronic obstructive pulmonary disease) S/P radiation therapy Cancer of right lung CAD (coronary artery disease) Assessment and Plan Assessment and plan all Dx Assessment and Plan for all problems:: Pharmacokinetic dosing service Objective: Patient: Floor: Age: 69 yo Serum creatinine: 0.70 mg/dL Height: 70.9 Inches Weight (kg): 82.6 Assessment: IBW (kg): 75.07 Dosing wt(kg): 82.6 Estimated Creatinine clearance (ml/min): 108.7 CRCL method: Cockcroft and Gault using ibw(default). Drug selected: Vancomycin Loading dose (mg): Vd (liters): 66.1 (factor used: 0.8 L/kg) Tono (hr-1): 0.095 Half life (hrs): 7.30 CLvanco=?? 6.279 L/hr Recommended dose: 1750 mg Interval: 12 hrs Infusion time (hrs): 2.0 Predicted peak (mcg/mL): 35.4 Predicted trough (mcg/mL): 13.69 Total body weight is being used for vancomycin dosing. Recommendations: Give Vancomycin 1750 mg q 12 hrs with an expected Cpeak of 35.4 mcg/ml and an expected Ctrough of 13.69 mcg/ml AUC 0-24 /ED Data: ED 0.5 mcg/mL:?? AUC/ED:? 1114.8 ED 1.0 mcg/mL:?? AUC/ED:? 557.4 --------- ED 1.5 mcg/mL:?? AUC/ED:? 371.6 ED 2.0 mcg/mL:?? AUC/ED:? 278.7 Thank you for the consult, will continue to follow. -LIVE GIBSON, ESTIVEND
[2025-07-01] MEDS: BUSPIRONE HCL 5 MG TABLET PO ×3 (09:21→20:12)
[2025-07-01] MEDS: FERROUS SULFATE 325MG TABLET 325 MG PO (09:21)
[2025-07-01] MEDS: PANTOPRAZOLE 40MG TABLET 40 MG PO ×2 (09:21→20:12)
[2025-07-01] MEDS: DOCUSATE SODIUM 100 MG CAPSULE PO ×2 (09:21→20:12)
[2025-07-01] MEDS: METOPROLOL TARTRATE 25MG TABLET 25 MG PO ×2 (09:21→20:12)
[2025-07-01] MEDS: FLUTICASONE PROP 50MCG NASAL SPRAY 16GM 1 SPRAY NS (09:22)
[2025-07-01] MEDS: APIXABAN 5MG TABLET 5 MG PO ×2 (09:22→20:12)
[2025-07-01] MEDS: FUROSEMIDE 20MG TABLET 20 MG PO (09:22)
--- NOTE | 2025-07-01 10:04 | P.CONPHA_ITS ---
Pharmacy Intervention Comments: MEDICATION RECONCILIATION COMPLETED ON PATIENT USING MAR FROM [facility]. -LIVE GIBSON, ESTIVEND
--- NOTE | 2025-07-01 10:04 | HMH.PHAINT1 ---
Pharmacy Intervention Comments: MEDICATION RECONCILIATION COMPLETED ON PATIENT USING MAR FROM [facility]IDENT[facility]. -LIVE GIBSON, ESTIVEND
[2025-07-01] MEDS: DOXYCYCLINE HYCLATE 100 MG in 0.9 % SODIUM CHLORIDE 250 ML 166.67 MG IV (10:23)
[2025-07-01] MEDS: OXYCODONE 5MG IMMEDIATE RELEASE TABLET 5 MG PO ×3 (11:11→23:40)
--- NOTE | 2025-07-01 11:45 | PC.NURSE ---
Sputum specimen sent to lab
[2025-07-01] MEDS: PIPERACILLIN/TAZO 4.5 GM in 0.9 % SODIUM CHLORIDE 100 ML IV ×3 (11:52→23:40)
--- OUTSIDE RECORDS SUMMARY | 2025-07-01 12:33 | XMS_ITS | Clinical Summary ---
Author Organization [facility] Address [address] [place] [address] Phone Care Team Providers Care Mapping Supervisor Name Role Phone Unavailable Unavailable Conditions or Problems No information available. Medications No information available. Medications Administered No information available. Allergies, Adverse Reactions, Alerts No information available. Results No information available. Plan of Care No information available. Procedures No information available. Vital Signs No information available. Immunizations No information available. Advance Directives No information available.
[2025-07-01] MEDS: VANCOMYCIN/WATER FOR INJ (PEG) 1.75 GM/350 ML PIGGYBACK IV (12:39)
--- NOTE | 2025-07-01 16:43 | EXP.PN ---
Subjective *Date: 07/01/25 *Time: 17:41 Interval history: Patient feeling better today, pending pulmonology recommendations for right lower lobe findings. Exam Data for Last 24 hours Vital signs and Labs for Last 24 Hours: Temp Pulse Resp BP Pulse Ox O2 Del Method O2 Flow Rate 97.7 F 80 14 136/71 95 Nasal Cannula 4 07/01/25 04:00 07/01/25 12:00 07/01/25 04:00 07/01/25 04:00 07/01/25 11:35 07/01/25 15:00 07/01/25 15:00 FiO2 28 07/01/25 00:20 Laboratory Results - last 24 hr 06/30/25 00:10: Chlamy pneumoniae PCR Not detected, Adenovirus (PCR) Not detected, B. pertussis DNA (PCR) Not detected, Coronavirus OC43 (PCR) Not detected, Coronavirus HKU1 (PCR) Not detected, Coronavirus 229E (PCR) Not detected, SARS-CoV-2 (PCR) Not detected, Coronavirus NL63 (PCR) Not detected, Human Metapneumovir PCR Not detected, Influenza A (H1) PCR Not detected, Influ A (H1N1/09) PCR Not detected, Influenza A (H3) PCR Not detected, Influenza Type A (PCR) Not detected, Influenza Type B (PCR) Not detected, M. pneumoniae (PCR) Not detected, Parainfluenza 1 (PCR) Not detected, Parainfluenza 2 (PCR) Not detected, Parainfluenza 3 (PCR) Not detected, Parainfluenza 4 (PCR) Not detected, RSV (PCR) Not detected, Entero/Rhino (PCR) Not detected 06/30/25 20:25: WBC 23.4 H*, RBC 3.48 L, Hgb 9.9 L, Hct 32.4 L, MCV 93.1, MCH 28.4, MCHC 30.6 L, RDW 15.9, Plt Count 294, MPV 10.6 H, Neut % (Auto) 80.7 H, Lymph % (Auto) 9.3 L, [place] % (Auto) 9.2, Eos % (Auto) 0.2, Baso % (Auto) 0.3, Neut # (Auto) 18.9 H, Lymph # (Auto) 2.2, [place] # (Auto) 2.2 H, Eos # (Auto) 0.0, Baso # (Auto) 0.1, Total Counted 100, Neutrophils % (Manual) 86 H, Lymphocytes % (Manual) 10, Monocytes % (Manual) 4, Platelet Estimate Normal, RBC Morphology Normal, D-Dimer 4.93 H, Sodium 137, Potassium 4.4, Chloride 99, Carbon Dioxide 31 H, Anion Gap 11.4, BUN 15, Creatinine 0.70, Estimated Creat Clear 92, Estimated GFR 112, Est GFR ( Amer) 136, Glucose 121 H, Calcium 8.6, Total Bilirubin 0.8, AST 34, ALT 21, Alkaline Phosphatase 70, Troponin I < 0.01, NT-Pro-B Natriuret Pep 636 H, Total Protein 6.8, Albumin 4.5, Globulin 2.3, Albumin/Globulin Ratio 2.0 H 06/30/25 20:26: VBG pH 7.38, VBG pCO2 50.8, VBG pO2 108.1 H, VBG HCO3 29.4, VBG Total CO2 30.9 H, VBG O2 Saturation 97.9 H, VBG Base Excess 4.3 H, VBG Lactic Acid 2.2 H 07/01/25 00:10: Troponin I < 0.01, Procalcitonin 0.288 07/01/25 06:08: WBC 16.8 H D, RBC 3.12 L, Hgb 8.8 L D, Hct 29.3 L, MCV 93.9, MCH 27.6, MCHC 29.4 L, RDW 15.8, Plt Count 168 D, MPV 9.9, Neut % (Auto) 96.3 H, Lymph % (Auto) 2.7 L, [place] % (Auto) 0.6 L, Eos % (Auto) 0.0 L, Baso % (Auto) 0.1, Neut # (Auto) 16.2 H, Lymph # (Auto) 0.5 L, [place] # (Auto) 0.1, Eos # (Auto) 0.0, Baso # (Auto) 0.0, Total Counted 100, Neutrophils % (Manual) 98 H, Lymphocytes % (Manual) 2 L, Platelet Estimate Normal, RBC Morphology Normal, Sodium 134 L, Potassium 5.0, Chloride 100, Carbon Dioxide 31 H, Anion Gap 8.0, BUN 12, Creatinine 0.50 L D, Estimated Creat Clear 84, Estimated GFR 166, Est GFR ( Amer) 201 D, Glucose 147 H D, Lactate 1.8, Calcium 8.7, Magnesium 2.2, Troponin I < 0.01 I & O for Last 24 hours: Intake & Output 06/28/25 06/29/25 06/30/25 07/01/25 23:59 23:59 23:59 23:59 Intake Total 350 / 572 2142 / 2142 Output Total 550 / 550 Balance 350 / 572 1592 / 1592 Weight 80.853 kg 82.554 kg Constitutional Constitutional: no acute distress and chronically ill appearing *Routine HEENT Exam Head: Present normocephalic Eye: Present EOMI and PERRL ENT: Present mucous membranes moist *Routine Neck Exam Neck: Present supple; Absent lymphadenopathy *Routine Respiratory Exam Respiratory: Present CTA bilaterally *Routine Cardiovascular Exam Cardiovascular: Present RRR *Routine Abdominal Exam Abdominal: Present soft and normoactive bowel sounds; Absent tenderness *Routine Extremities Exam Extremities: Absent cyanosis, clubbing or edema *Routine Skin Exam Skin: Present warm; Absent rash *Routine Neurological Exam Neurological: Present alert and oriented X3 Assessment and Plan *Assessment and plan (1) Sepsis: Status: Acute Category: Medical Code(s): A41.9 - Sepsis, unspecified organism (2) Pneumonia: Status: Acute Category: Medical Code(s): J18.9 - Pneumonia, unspecified organism Plan Patient with past medical history of lung cancer status post radiation at [facility] [place] (adenocarcinoma RLL 2022 status post SBRT), atrial fibrillation, COPD on 4 L of oxygen, hypertension, hyperlipidemia, BPH. Patient presents from custodial via ambulance with respiratory distress. Patient extremely poor historian, and was unable to tell me that he came from [facility] at time of my bedside evaluation. Patient admitted for COPD exacerbation with possible parapneumonic effusion. Problems listed below. #Sepsis #Healthcare associated pneumonia #COPD exacerbation #Chronic hypoxic respiratory failure, 4 L ? Presented with progressive shortness of breath, CTA chest on admission suggestive of right lower lobe pneumonia versus necrosis/infarction in right lower lobe. ? Initial WBC 23, with tachycardia. Initially placed on BiPAP for significantly restricted airway movement, weaned back to baseline 4 L in the ED. VBG without hypercarbia. ? Of note, patient was recently admitted to [facility] in [place] and apparently had a thoracentesis procedure. Patient cannot give much details as he is not the best historian, but he thinks it was for pneumonia. Obtaining records. ? Today, patient feels better. Breathing easier. WBC improved from 23-16.8, tachycardia improving. ? Continue vancomycin, Zosyn 3.375 g every 6 hours. ? Will discontinue Solu-Medrol as patient airway seems to be back to baseline. Continue home prednisone 10 mg daily. ? Continue DuoNebs every 6 hours. ? Follow-up sputum, blood cultures. ? Pulmonology consulted pending further recommendations. #History of lung adenocarcinoma ? Adenocarcinoma, see HPI for details. Status post bronch/EBUS at [facility] April 2025. Previously treated with radiation at [facility] [place]. Chest pain: Serial troponins during hospitalization. Telemetry monitoring overnight. Ordered repeat troponin for a.m. Troponins in ED <0.01, BNP 636 in ED. will consult cardiology if no abnormalities on ECHO. Neuropathic pain: Cymbalta 60 mg p.o. daily Headache: Imitrex 50 mg as needed twice daily for headache not resolved by Tylenol. Mood disorder: BuSpar 5 mg p.o. 3 times daily, Risperdal 1 mg p.o. daily GERD: 40 mg p.o. daily Hypercholesterolemia atorvastatin 40 mg p.o. daily BPH: Flomax 0.4 mL p.o. daily Anemia ferrous sulfate 324 milligrams p.o. daily. Hemoglobin 9.9 at time of admission. Atrial fibrillation: Eliquis 5 mg p.o. twice daily CHF: Home meds Lasix 20 mg p.o. daily, metoprolol 25 mg p.o. twice daily Full code DVT prophylaxis: Home Eliquis Medications
--- NOTE | 2025-07-01 17:36 | PC.NURSE ---
pt resting supine in bed. able to answer orientation questions, but has periods of confusion. requiring 4LNC to maintain sats >90%. uses urinal independently. pain medication given per oct. abx given per oct. pt has not had much of an appetite this shift. updated [place] on POC. no needs at this time. call light within reach.
[2025-07-01] MEDS: BUDESONIDE 0.5MG/2ML NEB 0.5 MG IH (18:18)
[2025-07-01] MEDS: ALUMINUM/MAGNESIUM/SIMETHICONE 30ML UDC 30 ML PO (18:33)
[2025-07-01] MEDS: FUROSEMIDE 40MG/4ML VIAL 40 MG IV (19:35)
[2025-07-01] MEDS: MELATONIN 5MG TABLET 5 MG PO (20:12)
[2025-07-01] MEDS: ATORVASTATIN 40MG TABLET 40 MG PO (20:12)
[2025-07-01] MEDS: TAMSULOSIN 0.4MG CAPSULE 0.4 MG PO (20:12)
[2025-07-02] VITALS (8 sets, daily range): BP systolic 97–130; BP diastolic 57–74; PULSE 67–98; RESP 15–20; TEMP 36.4–36.9; O2SAT 90–98; BMI 25.5
[2025-07-02] MEDS: VANCOMYCIN/WATER FOR INJ (PEG) 1.75 GM/350 ML PIGGYBACK IV (00:17)
--- NOTE | 2025-07-02 04:00 | PC.NURSE ---
Patient is alert and oriented, however, intermittent confusion remains noted. He was observed to have both wakeful periods and resting periods (eyes closed and respirations even and unlabored) throughout the night. Oxygen saturations have remained > 90% on 4 L of oxygen via nasal cannula. He has not had any complaints of worsening shortness of breath or difficulties with breathing. Breathing treatments were given by RTs per OCT. Scheduled medications administered per OCT as well. OxyIR was given per OCT for lower back and lower chest pain complaint. court monitor and continuous pulse ox remains intact. Physical assessment performed as appropriately for this shift (see nursing shift biophysical intervention). Heart rate within desired range this shift. Urinal at bedside for voiding needs. At this time, the patient remains resting in bed with no new needs vocalized. Call light within reach.
[2025-07-02] MEDS: PIPERACILLIN/TAZO 4.5 GM in 0.9 % SODIUM CHLORIDE 100 ML IV ×3 (05:25→18:23)
[2025-07-02] MEDS: IPRATROPIUM/ALBUTEROL 3 ML NEB IH (06:46)
[2025-07-02] MEDS: BUDESONIDE 0.5MG/2ML NEB 0.5 MG IH (06:46)
[2025-07-02 06:51] LABS: Hematocrit 27.7 % (42.0-52.0); Hemoglobin 8.2 g/dL (14.1-18.0); Immature Granulocytes % 0.5 %; Mean Corpuscular HGB Conc 29.6 g/dL (31.8-35.4); Mean Corpuscular Hemoglobin 28.0 pg (27.0-31.2); Mean Corpuscular Volume 94.5 fl (80-94); Nucleated Red Blood Cells % 0 %; Platelet Count 211 K/mm3 (142-424); Red Blood Count 2.93 M/mm3 (4.60-6.20); Red Cell Distribution Width-SD 56.2 fL; White Blood Count 19.9 K/mm3 (4.8-10.8)
[2025-07-02 06:56] LABS: Anion Gap 5.5 mEq/L (5-15); Blood Urea Nitrogen 15 mg/dl (9-20); Calcium 8.5 mg/dl (8.4-10.2); Carbon Dioxide 33 mmol/L (22.0-30.0); Chloride 100 mmol/L (98-107); Creatinine Clearance Estimated 84 mL/min (50-200); Creatinine,Serum 0.70 mg/dl (0.66-1.25); Estimated Glomerular Filt Rate 112 ml/min (>60); GFR (African American) 136 ML/MIN (>60); Glucose 121 mg/dl (74-100); Magnesium 2.3 mg/dl (1.6-2.3); Potassium 4.5 mmoL/L (3.5-5.1); Sodium 134 mmol/L (136-145)
--- NOTE | 2025-07-02 08:06 | SW/DCPLANNER ---
Addendum entered by [facility] 07/03/25 11:51: I have updated Cat sharpe/ Hallie Del Real that patient will return today I[facility] level of care. Addendum entered by Eulalia Cayucos 07/02/25 15:42: Per Guido sharpe/ [facility] no male SUSY bed open at this time. Addendum entered by [facility] 07/02/25 15:37: Per Kylah Bradley patient has voiced an interest in returning back to [facility]. I did fax patient information to Guido sharpe/ [facility] to review. Lavell will need LTC. Addendum entered by [facility] 07/02/25 11:04: I have updated Cat sharpe/ Hallie Del Real that patient may return this afternoon [facility] level of care. Original Note: Patient currently resides at [facility] level of care. Updated patient information has been faxed to Cat sharpe/ Hallie Del Real. Discharge date is unknown at this time. CM will continue to follow up.
--- NOTE | 2025-07-02 08:47 | HMH.PTEV ---
Physical Therapy Evaluation Rehab PT IP Evaluation Start: 07/01/25 01:15 Freq: ONCE Status: Active Protocol: Document 07/02/25 08:42 ANTONI (Rec: 07/02/25 08:47 ANTONI [id number]) Subjective/History History History Per H&P: Patient with past medical history of lung cancer status post radiation at [facility] (adenocarcinoma RLL 2022 status post SBRT), atrial fibrillation, COPD on 4 L of oxygen, hypertension, hyperlipidemia, BPH. Patient presents from [facility] via ambulance with respiratory distress. Patient extremely poor historian , and was unable to tell me that he came from [facility] at time of my bedside evaluation. Per record review on [facility] noted that patient originally treated at [facility] May 05 to May 18 for acute on chronic respiratory failure. Patient underwent thoracentesis 05/08 and bronchoscopy/EBUS 05/11 at [facility]. Oncology at that time recommended PET/CT follow-up scan. Patient underwent second thoracentesis at [facility] 05/16 with 1.3 L removed. Patient also completed course of antibiotics during [facility] [place] hospitalization. Patient then discharged to [facility]. For unknown reasons, patient transferred to [facility] June 09, 2025. [facility] sent patient to emergency room today for shortness of breath evaluation. As previously mentioned, patient extremely inaccurate historian, but states he has been short of breath for the past 2 to 3 days. Also complains of chest discomfort over the past 2 to 3 days . Describes chest discomfort as 8/10, achy, substernal , nonradiating, lasting minutes, without exacerbating or ameliorating factors. States that he recently had rectal surgery and black blood wound, and I do not know why. Denies fevers, chills, known sick contacts, productive cough, GI bleeding.CTA chest done in emergency room shows possible parapneumonic effusion or airspace disease. Subjective Subjective Pt reports he lives in a fpc. Pt reports he uses a w/c for all mobility. Pt reports using a w/c for ~ 9 months and has not ambulated in that time. Pt reports he is normally able to transfer himself to/ from w/c with varying SBA - Min A. Pt denies any fall in past 3-4 months. [facility] How much help from another person do you currently need... Turning from your None back to your side while in a flat bed without using bedrails? Moving from lying on None back to sitting on the side of a flat bed without using bedrails? Moving to and from a None bed to a chair ( including a wheelchair)? Standing up from a None chair using your arms? (e.g., wheelchair, bedside chair) Walking in hospital A lot room? Climbing 3-5 steps A lot with a railing? Mobility Score 20 Mobility Level [facility] Mobility 6 Walk 10 steps or more Mobility Calculator Rehab PT IP Eval Objective Appearance Patient Behavior Appropriate,Cooperative Patient Orientation Person Difficulty following none instructions Speech Pattern Clear Ambulation Patient Able to No Ambulate Balance Ability to Arise Able, uses arms to help Sitting Balance Steady, safe Standing Balance Steady, wide stance Dynamic Sitting Good Balance Ability Dynamic Standing Fair Balance Ability Transfers Bed Transfer Ability Independent Chair Transfer Supervision/Stand by Ability Sit to Stand Bed Supervision/Stand by Transfer Ability Rehab PT IP prob,goals,plan Problems Date of Evaluation: 07/02/25 Rehab Potential Rehab Potential Innapropriate for Skilled Therapy Discharge Plan PT Discharge Plan Pt able to demo bed mobility and EOB transfer/STS with SBA. Pt demo'd good standing balance at EOB. Pt appears to be at his reported baseline and would not benefit from skilled acute level PT at this time. Eval Complexity Eval Charge Codes 12387 - Moderate Complexity PHYSICIAN CERTIFICATION: I certify the specified therapy services for Javy Mckeon are required, authorized, and reviewed every 30 days.
--- NOTE | 2025-07-02 09:32 | HMH.OTEV ---
OT Evaluation Rehab OT IP Evaluation Start: 07/01/25 01:15 Freq: ONCE Status: Active Protocol: Document 07/02/25 09:28 SYLVESTER (Rec: 07/02/25 09:32 SYLVESTER [id number]) Rehab OT IP Assessment Subjective History Per *History of present illness: Patient with past medical history of lung cancer status post radiation at [facility] [place] (adenocarcinoma RLL 2022 status post SBRT), atrial fibrillation, COPD on 4 L of oxygen, hypertension, hyperlipidemia, BPH. [facility] with [facility] distress. Patient extremely poor historian , and was unable to tell me that he came from [facility] at time of my bedside evaluation. Per record review on [facility] noted that patient originally treated at [facility] May 05 to May 18 for acute on chronic respiratory failure. Patient underwent thoracentesis 05/08 and bronchoscopy/EBUS 05/11 at [facility]. Oncology at that time recommended PET/CT follow-up scan. Patient underwent second thoracentesis at [facility] 05/16 with 1.3 L removed. Patient also completed course of antibiotics during [facility] [place] hospitalization. Patient then discharged to [facility]. For unknown reasons, patient transferred to [facility] June 09, 2025. [facility] sent patient to emergency room today for shortness of breath evaluation. As previously mentioned, patient extremely inaccurate historian, but states he has been short of breath for the past 2 to 3 days. Also complains of chest discomfort over the past 2 to 3 days . Describes chest discomfort as 8/10, achy, substernal , nonradiating, lasting minutes, without exacerbating or ameliorating factors. States that he recently had rectal surgery and black blood wound, and I do not know why. Denies fevers, chills, known sick contacts, productive cough, GI bleeding.CTA chest done in emergency room shows possible parapneumonic effusion or airspace disease. Subjective That place is horrible. Pt supine in bed when therapy arrived. Pt agreed to OT eval this AM. Pt orient x3. pt reported they live at [facility] and have assist with ADLs and IADLs. Pt reported they have been using a w/c for FM for aprox 9 months. Pt reported they are normally on O2 at baseline . Pt reported they need assist with transfers and have not had any falls in 3/4 months. Pt agreed to FM task. Pt went from supine to EOB Ind. Pt then completed STS with SBA. Pt able to hold static standing balance for aprox 45 seconds before pt sat back on EOB with SBA. Pt then went to supine position Ind. Pt left supine in bed with call light and all other needs within reach. Objective Patient Orientation Person,Place,Birthday Right Upper WFL Extremity Gross ROM Left Upper Extremity WFL Gross ROM Bed Mobility bed mobility-scooting,bed mobility - supine/sit Assist Level Independent Transfer Training Sit/Stand Transfer Assist Level Supervision/Stand by Chair Transfer Sit to/from Ambulatory Technique Chair Transfer None Assistive Devices Decrease in No Endurance Rehab OT IP prob,goals,plan Problems Date of Evaluation: 07/02/25 Rehab Potential Rehab Potential Innapropriate for Skilled Therapy Discharge Plan OT Discharge Plan At this time, pt is at baseline and would not benefit from skilled acute OT services and interventions while admitted at [facility]. Once medically stable and DC from [facility], pt able to go back to current living arrangements. Eval Complexity Eval Charge Codes 31841 - Moderate Complexity PHYSICIAN CERTIFICATION: I certify the specified therapy services for Javy Mckeon are required, authorized, and reviewed every 30 days.
[2025-07-02] MEDS: FUROSEMIDE 20MG TABLET 20 MG PO (09:39)
[2025-07-02] MEDS: APIXABAN 5MG TABLET 5 MG PO ×2 (09:39→21:38)
[2025-07-02] MEDS: FERROUS SULFATE 325MG TABLET 325 MG PO (09:41)
[2025-07-02] MEDS: BUSPIRONE HCL 5 MG TABLET PO ×3 (09:41→21:38)
[2025-07-02] MEDS: OXYCODONE 5MG IMMEDIATE RELEASE TABLET 5 MG PO ×2 (09:41→18:23)
[2025-07-02] MEDS: PANTOPRAZOLE 40MG TABLET 40 MG PO ×2 (09:41→21:38)
--- NOTE | 2025-07-02 09:44 | EXP.PULM.CON ---
History of Present Illness History of present illness: Mr. Mckeon is a 69-year-old male with reported history of adenocarcinoma lung status post radiation at [facility], atrial fibrillation COPD chronic hypoxic respiratory failure on 4 L oxygen supplementation hypertension dyslipidemia presented to the ER with worsening respiratory distress and pulmonary was called for further evaluation and management. [facility] Disclaimer: The information contained in this section may have been updated after the patient was seen, as this information can be updated by other users. Medical History (Updated 07/02/25 @ 12:05 by Austen Valdez MD) Pleural effusion on right Pleural effusion, left Acute and chronic respiratory failure with hypoxia Lung cancer Onychomycosis Cataracts, bilateral Alteration in physical mobility Abnormal gait Generalized muscle weakness Constipation Pleural effusion Heart failure HTN (hypertension) Depressive disorder Delirium Hyperlipemia Protein calorie malnutrition Malignant neoplasm Sepsis Insomnia Mood disorder Chronic iron deficiency anemia BPH (benign prostatic hyperplasia) A-fib Hypoxic respiratory failure COPD (chronic obstructive pulmonary disease) S/P radiation therapy Cancer of right lung CAD (coronary artery disease) Surgical History History of cholecystectomy Presence of coronary angioplasty implant and graft Social History (Updated 07/01/25 @ 01:08 by Nori Robbins RN) Smoking Status: Current some day smoker tobacco type: cigarettes years smoked: 20 smoking status stop date: april 2024 how long ago did patient quit smokin year quit status: considering quitting Tobacco counseling given: other alcohol intake: never current occupational status: retired Travel in the last 8 weeks?: None marital status: single number of children: 0 Have you lived/traveled outside [place] in past 30 days?: No Contact w/someone who lives/traveled outside [place] past 30 days?: No Exposure to someone with infectious disease in past 14 days?: No Do you have a fever (greater than 100.4 F or 38 C)?: No Have you tested positive for COVID-19?: No Exposed to someone with COVID-19 in past 14 days?: No Do you have a sore throat?: No Do you have a cough?: Yes Do you have any weakness?: No Do you have any diarrhea?: No Are you experiencing any unusual bleeding?: No Do you have any muscle aches/pain?: No Do you have any abdominal pain?: No Are you experiencing loss of taste or smell?: No Review of Systems Constitutional Constitutional: Reports anorexia, Reports body ache(s) and Reports fatigue Eyes Eyes: Denies eye discharge, Denies dry eyes, Denies irritation and Denies itchy eyes ENT Ears, Nose, Mouth, and Throat: Denies epistaxis, Denies facial pain, Denies lip swelling and Denies throat swelling *Cardiovascular Cardiovascular: Reports dyspnea and Reports dyspnea on exertion *Respiratory Respiratory: Denies change in phlegm color, Reports chest congestion, Reports cough, Reports dyspnea, Reports dyspnea on exertion, Denies excessive phlegm production, Denies hemoptysis, Denies pain on inspiration, Denies pain with cough and Reports wheezing *Gastrointestinal Gastrointestinal: Denies abdominal pain, Denies belching and Denies cramping *Musculoskeletal Musculoskeletal: Reports back pain, Reports muscle weakness, Reports myalgias, Reports tingling and Reports other (No small joint swelling or Pain) *Neurologic Neurologic: Reports tingling Psychiatric Psychiatric: Denies homicidal ideation and Denies suicidal ideation Endocrine Endocrine: Reports fatigue and Denies heat intolerance Hematologic/Lymphatic Hematologic/Lymphatic: Denies easy bleeding and Denies lymphadenopathy Allergic/Immunologic Allergic/Immunologic: Denies itchy eyes, Denies lip swelling, Denies throat swelling and Reports wheezing Pulmonology Exam Inpatient Vital signs and Labs for Last 24 Hours: Temp Pulse Resp BP Pulse Ox O2 Del Method O2 Flow Rate 98.4 F 77 15 97/59 L 96 Nasal Cannula 4 07/02/25 07:46 07/02/25 07:46 07/02/25 07:46 07/02/25 07:46 07/02/25 07:46 07/02/25 07:46 07/02/25 07:46 FiO2 28 07/01/25 00:20 Laboratory Results - last 24 hr 07/02/25 06:14: WBC 19.9 H, RBC 2.93 L, Hgb 8.2 L, Hct 27.7 L, MCV 94.5 H, MCH 28.0, MCHC 29.6 L, RDW 16.1, Plt Count 211 D, MPV 10.2, Neut % (Auto) 88.2 H, Lymph % (Auto) 4.5 L, [place] % (Auto) 6.7, Eos % (Auto) 0.0 L, Baso % (Auto) 0.1, Neut # (Auto) 17.6 H, Lymph # (Auto) 0.9, [place] # (Auto) 1.3 H, Eos # (Auto) 0.0, Baso # (Auto) 0.0, Sodium 134 L, Potassium 4.5, Chloride 100, Carbon Dioxide 33 H, Anion Gap 5.5, BUN 15, Creatinine 0.70 D, Estimated Creat Clear 84, Estimated GFR 112, Est GFR ( Amer) 136 D, Glucose 121 H, Calcium 8.5, Magnesium 2.3 I & O for Labs for Last 24 Hours: Intake & Output 06/29/25 06/30/25 07/01/25 07/02/25 23:59 23:59 23:59 23:59 Intake Total 350 / 572 2442 / 2796 1064 / 1064 Output Total 850 / 850 300 / 300 Balance 350 / 572 1592 / 1946 764 / 764 Weight 178 lb 4 oz 182 lb 182 lb 8 oz Microbiology Reports for the Last 24 Hours: Microbiology 07/01/25 11:45 Sputum - Expectorated Sputum Gram Stain - Final 06/30/25 20:39 Blood Blood Culture - Preliminary NO GROWTH AFTER 24 HOURS 06/30/25 20:25 Blood Blood Culture - Preliminary NO GROWTH AFTER 24 HOURS Constitutional: Present moderate distress Head: Present normocephalic and atraumatic ENT: Present normal exam, normal oropharynx and mucous membranes moist Neck: Present normal inspection and full ROM Respiratory: Present respiratory distress, rhonchi, wheezes, diminished air movement and able to speak in complete sentences Cardiac: Present S1/S2, Tachycardia and radial pulses present GI: Present soft and distention; Absent tenderness or guarding Skin: Present intact; Absent cyanosis or jaundice Neuro: Present alert, awake and oriented x 3 Extremities: Present normal inspection; Absent clubbing or cyanosis Psychiatric: Present normal affect and cooperative Meds Home Medications and Allergies Home Medications ?Medication ?Instructions ?Recorded ?Confirmed ?Type albuterol sulfate 2.5 mg/0.5 mL 2.5 mg inhalation Q6HP PRN 06/11/25 07/01/25 History solution for nebulization Shortness Of Breath apixaban 5 mg tablet (Eliquis) 5 mg PO BID 06/11/25 07/01/25 History atorvastatin 40 mg tablet (Lipitor) 40 mg PO HS 06/11/25 07/01/25 History docusate sodium 100 mg capsule 100 mg PO BID 06/11/25 07/01/25 History duloxetine 60 mg capsule,delayed 60 mg PO DAILY 06/11/25 07/01/25 History release ferrous sulfate 324 mg (65 mg 324 mg PO DAILY 06/11/25 07/01/25 History iron) tablet,delayed release furosemide 20 mg tablet (Lasix) 20 mg PO DAILY 06/11/25 07/01/25 History levalbuterol HCl 1.25 mg/3 mL 1.25 mg inhalation Q6HP PRN 06/11/25 07/01/25 History solution for nebulization Shortness Of Breath Or Wheezing melatonin 3 mg capsule 6 mg PO HS 06/11/25 07/01/25 History metoprolol tartrate 25 mg tablet 25 mg PO BID 06/11/25 07/01/25 History pantoprazole 40 mg tablet,delayed 40 mg PO BID 06/11/25 07/01/25 History release (Protonix) prednisone 10 mg tablet 10 mg PO DAILY 06/11/25 07/01/25 History tamsulosin 0.4 mg capsule (Flomax) 0.4 mg PO DAILY 06/11/25 07/01/25 History tizanidine 4 mg capsule 4 mg PO TIDP PRN Muscle Spasm 06/11/25 07/01/25 History ascorbic acid (vitamin C) 500 mg 500 mg PO DAILY 07/01/25 07/01/25 History tablet buspirone 5 mg tablet 5 mg PO TID 07/01/25 07/01/25 History fluticasone fur. 200 mcg-umeclid 1 inh inhalation DAILY 07/01/25 07/01/25 History 62.5 mcg-vilant 25 mcg inhalat.powder (Trelegy Ellipta) oxycodone 5 mg tablet 5 mg PO Q8HP PRN Moderate Pain 07/01/25 07/01/25 History (Scale Score 5-6) risperidone 1 mg tablet 1 mg PO DAILY 07/01/25 07/01/25 History New Prescriptions to Start Prescriptions: Allergies Allergy/AdvReac Type Severity Reaction Status Date / Time No Known Allergies Allergy Verified 06/11/25 09:36 Results Laboratory Findings 07/02/25 06:14 07/02/25 06:14 PT/INR, D-dimer D-Dimer 4.93 ug/mL (0.0-0.5) H 06/30/25 20:25 Abnormal lab findings: Abnormal Labs 06/30/25 06/30/25 07/01/25 20:25 20:26 06:08 WBC 23.4 H* 16.8 H D RBC 3.48 L 3.12 L Hgb 9.9 L 8.8 L D Hct 32.4 L 29.3 L MCV MCHC 30.6 L 29.4 L MPV 10.6 H Neut % (Auto) 80.7 H 96.3 H Lymph % (Auto) 9.3 L 2.7 L [place] % (Auto) 0.6 L Eos % (Auto) 0.0 L Neut # (Auto) 18.9 H 16.2 H Lymph # (Auto) 0.5 L [place] # (Auto) 2.2 H Neutrophils % (Manual) 86 H 98 H Lymphocytes % (Manual) 2 L D-Dimer 4.93 H VBG pO2 108.1 H VBG Total CO2 30.9 H VBG O2 Saturation 97.9 H VBG Base Excess 4.3 H VBG Lactic Acid 2.2 H Sodium 134 L Carbon Dioxide 31 H 31 H Creatinine 0.50 L D Glucose 121 H 147 H D NT-Pro-B Natriuret Pep 636 H Albumin/Globulin Ratio 2.0 H 07/02/25 06:14 WBC 19.9 H RBC 2.93 L Hgb 8.2 L Hct 27.7 L MCV 94.5 H MCHC 29.6 L MPV Neut % (Auto) 88.2 H Lymph % (Auto) 4.5 L [place] % (Auto) Eos % (Auto) 0.0 L Neut # (Auto) 17.6 H Lymph # (Auto) [place] # (Auto) 1.3 H Neutrophils % (Manual) Lymphocytes % (Manual) D-Dimer VBG pO2 VBG Total CO2 VBG O2 Saturation VBG Base Excess VBG Lactic Acid Sodium 134 L Carbon Dioxide 33 H Creatinine Glucose 121 H NT-Pro-B Natriuret Pep Albumin/Globulin Ratio Assessment and Plan *Assessment and plan (1) Sepsis: Status: Acute Category: Medical Code(s): A41.9 - Sepsis, unspecified organism (2) Pneumonia: Status: Acute Category: Medical Code(s): J18.9 - Pneumonia, unspecified organism (3) Acute and chronic respiratory failure with hypoxia: Status: Acute Category: Medical Code(s): J96.21 - Acute and chronic respiratory failure with hypoxia (4) Pleural effusion on right: Status: Acute Category: Medical Code(s): J90 - Pleural effusion, not elsewhere classified Plan Mr. Mckeon is a 69-year-old male with reported history of adenocarcinoma lung status post radiation at [facility], atrial fibrillation COPD chronic hypoxic respiratory failure on 4 L oxygen supplementation hypertension dyslipidemia presented to the ER with worsening respiratory distress and pulmonary was called for further evaluation and management. He had baseline not using any inhaler therapy using 4 L nasal cannula oxygen supplementation. As per the note patient recently underwent bronchoscopy EBUS FNA at [facility] April 2025. Afebrile. Hemodynamically stable. Neutrophilic predominant leukocytosis. CTA upon admission no pulmonary embolism. Small to moderate right pleural effusion with no consolidative/airspace changes. Underlying lung mass with necrotic changes cannot be completely ruled although less likely. Patient admits he underwent thoracentesis within the last 2 months along with bronchoscopy EBUS FNA at [facility]. Unclear the circumstances as patient could not recall much of the details. On examination no acute respiratory distress. At baseline oxygen supplementation saturating 95% and above Plan: Obtain records from [facility] with respect to his recent thoracentesis and bronchoscopy results Trelegy 100 inhaler along with DuoNebs 4 times daily as needed No need for noninvasive ventilatory therapy Blood cultures no growth 24 hours. Antibiotics can be weaned to Augmentin from pulmonary standpoint. # Thank you for involving pulmonary in this patient care. Will continue to follow.
[2025-07-02 11:49] LABS: Thyroid Stimulating Hormone 0.19 uIU/mL (0.465-4.68)
[2025-07-02 11:55] LABS: Vancomycin,Trough 23.5 ug/mL (5.0-10.0)
[2025-07-02 12:14] LABS: Iron 40 ug/dL (49-181)
[2025-07-02 12:24] LABS: Total Iron Binding Capacity 241 ug/dL (261-462)
--- NOTE | 2025-07-02 12:42 | EXP.PHA.CONS ---
Pharmacy Consult Date: 07/02/25 Time: 12:42 Referring provider: DR. GARCIA Reason for Consult:: VANCOMYCIN LEVEL AND DOSE CHANGE Allergies Allergy/AdvReac Type Severity Reaction Status Date / Time No Known Allergies Allergy Verified 06/11/25 09:36 Home Medications ?Medication ?Instructions ?Recorded ?Confirmed ?Type albuterol sulfate 2.5 mg/0.5 mL 2.5 mg inhalation Q6HP PRN 06/11/25 07/01/25 History solution for nebulization Shortness Of Breath apixaban 5 mg tablet (Eliquis) 5 mg PO BID 06/11/25 07/01/25 History atorvastatin 40 mg tablet (Lipitor) 40 mg PO HS 06/11/25 07/01/25 History docusate sodium 100 mg capsule 100 mg PO BID 06/11/25 07/01/25 History duloxetine 60 mg capsule,delayed 60 mg PO DAILY 06/11/25 07/01/25 History release ferrous sulfate 324 mg (65 mg 324 mg PO DAILY 06/11/25 07/01/25 History iron) tablet,delayed release furosemide 20 mg tablet (Lasix) 20 mg PO DAILY 06/11/25 07/01/25 History levalbuterol HCl 1.25 mg/3 mL 1.25 mg inhalation Q6HP PRN 06/11/25 07/01/25 History solution for nebulization Shortness Of Breath Or Wheezing melatonin 3 mg capsule 6 mg PO HS 06/11/25 07/01/25 History metoprolol tartrate 25 mg tablet 25 mg PO BID 06/11/25 07/01/25 History pantoprazole 40 mg tablet,delayed 40 mg PO BID 06/11/25 07/01/25 History release (Protonix) prednisone 10 mg tablet 10 mg PO DAILY 06/11/25 07/01/25 History tamsulosin 0.4 mg capsule (Flomax) 0.4 mg PO DAILY 06/11/25 07/01/25 History tizanidine 4 mg capsule 4 mg PO TIDP PRN Muscle Spasm 06/11/25 07/01/25 History ascorbic acid (vitamin C) 500 mg 500 mg PO DAILY 07/01/25 07/01/25 History tablet buspirone 5 mg tablet 5 mg PO TID 07/01/25 07/01/25 History fluticasone fur. 200 mcg-umeclid 1 inh inhalation DAILY 07/01/25 07/01/25 History 62.5 mcg-vilant 25 mcg inhalat.powder (Trelegy Ellipta) oxycodone 5 mg tablet 5 mg PO Q8HP PRN Moderate Pain 07/01/25 07/01/25 History (Scale Score 5-6) risperidone 1 mg tablet 1 mg PO DAILY 07/01/25 07/01/25 History New Prescriptions to Start Prescriptions: Height: 1.8 m Weight: 82.781 kg Laboratory Results:: Laboratory Results - last 24 hr 07/02/25 06:14: WBC 19.9 H, RBC 2.93 L, Hgb 8.2 L, Hct 27.7 L, MCV 94.5 H, MCH 28.0, MCHC 29.6 L, RDW 16.1, Plt Count 211 D, MPV 10.2, Neut % (Auto) 88.2 H, Lymph % (Auto) 4.5 L, [place] % (Auto) 6.7, Eos % (Auto) 0.0 L, Baso % (Auto) 0.1, Neut # (Auto) 17.6 H, Lymph # (Auto) 0.9, [place] # (Auto) 1.3 H, Eos # (Auto) 0.0, Baso # (Auto) 0.0, Sodium 134 L, Potassium 4.5, Chloride 100, Carbon Dioxide 33 H, Anion Gap 5.5, BUN 15, Creatinine 0.70 D, Estimated Creat Clear 84, Estimated GFR 112, Est GFR ( Amer) 136 D, Glucose 121 H, Calcium 8.5, Magnesium 2.3, Iron 40 L, TIBC 241 L, Iron Saturation [id number], TSH 0.19 L 07/02/25 10:32: Vancomycin Trough 23.5 H Medical History: Medical History (Updated 07/02/25 @ 12:05 by Austen Valdez MD) Pleural effusion on right Pleural effusion, left Acute and chronic respiratory failure with hypoxia Lung cancer Onychomycosis Cataracts, bilateral Alteration in physical mobility Abnormal gait Generalized muscle weakness Constipation Pleural effusion Heart failure HTN (hypertension) Depressive disorder Delirium Hyperlipemia Protein calorie malnutrition Malignant neoplasm Sepsis Insomnia Mood disorder Chronic iron deficiency anemia BPH (benign prostatic hyperplasia) A-fib Hypoxic respiratory failure COPD (chronic obstructive pulmonary disease) S/P radiation therapy Cancer of right lung CAD (coronary artery disease) Assessment and Plan Assessment and plan all Dx Assessment and Plan for all problems:: PATIENT'S VANCOMYCIN TROUGH LEVEL WAS 23.5 MCG/ML THIS AM. RECOMMEND HOLDING DOSE TIL 2100 TONIGHT. THEN REDUCED DOSE TO 1250 MG Q12H AT THAT TIME.
[2025-07-02 12:50] LABS: Ferritin 35.9 ng/ml (17.9-464)
[2025-07-02 13:06] LABS: Vitamin B12 > 1000 pg/mL (239-931)
[2025-07-02] MEDS: IRON SUCROSE COMPLEX 200 MG in 0.9 % SODIUM CHLORIDE 100 ML 220 MG IV (13:43)
--- NOTE | 2025-07-02 14:12 | XR_ITS ---
FINAL REPORT CLINICAL HISTORY: possible aspiration, productive cough COMPARISON: 06/30/2025 FINDINGS: A single frontal view of the chest was obtained. Persistent density in the right lung base is compatible with atelectasis and pleural effusion. Chronic pneumonia is not excluded. The left lung is clear. There is no evidence of pneumothorax. Mediastinum is unremarkable. Heart size is normal. IMPRESSION: Stable right pleural effusion with underlying atelectasis and/or pneumonia. Reviewed, Interpreted and Dictated by Alysa Ortega MD Transcribed by Yuliana Conte Authenticated and [facility]
--- NOTE | 2025-07-02 15:59 | P.PN_ITS ---
<Statement entered by Jam Ledesma MD - 07/03/25 11:21> Agree with plan of care as outlined by the INVESTIGATIVE AGENT below. Subjective *Date: 07/02/25 *Time: 15:59 Interval history: Patient is doing well today, sitting up in bed. On baseline 4 L nasal cannula. Pulmonology consulted, awaiting records from [facility] where patient had bronchoscopy and thoracentesis in April. Medical Exam Vital signs and Labs for Last 24 Hours: Vital Signs Temp Pulse Pulse Resp BP Pulse Ox O2 Del Method 07/02/25 12:00 97.7 F 78 18 110/61 97 Room Air 07/02/25 09:00 Nasal Cannula 07/02/25 08:00 Nasal Cannula 07/02/25 07:46 98.4 F 77 15 97/59 L 96 Nasal Cannula 07/02/25 06:55 Nasal Cannula 07/02/25 06:47 67 07/02/25 06:47 68 07/02/25 06:47 90 L Nasal Cannula 07/02/25 05:00 Nasal Cannula 07/02/25 04:00 75 07/02/25 04:00 97.6 F 72 18 105/63 L 98 Nasal Cannula 07/02/25 03:00 Nasal Cannula 07/02/25 01:00 Nasal Cannula 07/02/25 00:00 70 07/02/25 00:00 98.2 F 76 18 107/57 L 96 Nasal Cannula 07/01/25 23:54 80 07/01/25 23:54 84 07/01/25 23:00 Nasal Cannula 07/01/25 21:00 Nasal Cannula 07/01/25 20:00 96 Nasal Cannula 07/01/25 20:00 85 07/01/25 20:00 97.7 F 87 18 129/68 91 L Nasal Cannula 07/01/25 18:47 Nasal Cannula 07/01/25 18:18 83 07/01/25 18:18 86 07/01/25 18:18 95 Nasal Cannula 07/01/25 17:00 Nasal Cannula 07/01/25 16:00 80 07/01/25 16:00 98.2 F 94 H 18 139/86 95 Nasal Cannula O2 Flow Rate 07/02/25 12:00 2 07/02/25 09:00 07/02/25 08:00 07/02/25 07:46 4 07/02/25 06:55 4 07/02/25 06:47 07/02/25 06:47 07/02/25 06:47 4 07/02/25 05:00 4 07/02/25 04:00 07/02/25 04:00 4 07/02/25 03:00 4 07/02/25 01:00 4 07/02/25 00:00 07/02/25 00:00 4 07/01/25 23:54 07/01/25 23:54 07/01/25 23:00 4 07/01/25 21:00 4 07/01/25 20:00 4 07/01/25 20:00 07/01/25 20:00 4 07/01/25 18:47 4 07/01/25 18:18 07/01/25 18:18 07/01/25 18:18 3 07/01/25 17:00 4 07/01/25 16:00 07/01/25 16:00 4 Intake and Output 07/01/25 07/02/25 07/02/25 23:59 07:59 15:59 Intake Total 300 / 2796 904 / 1504 600 / 1504 Output Total 300 / 850 300 / 650 350 / 650 Balance 0 / 1946 604 / 854 250 / 854 Intake: Intake, Oral Amount 200 / 1346 354 / 854 500 / 854 Intake, Total IV Amount 100 / 1450 550 / 650 100 / 650 Piperacillin/Tazo 4.5 gm In 0.9 100 / 200 200 / 300 100 / 300 % Sodium Chloride 100 ml @ 200 mls/hr IV Q6H LINDA Rx#:[id number] Vancomycin/Water For Inj (Peg) 350 / 350 1.75 gm In 350 ml @ 175 mls/hr IV Q12H LINDA Rx#:[id number] Output: Output, Urine Amount 300 / 850 300 / 650 350 / 650 Other: Number of Voids 0 Number of Unmeasured Voids 1 0 Weight 82.781 kg 82.781 kg Patient Weight 07/02/25 23:59 Weight 82.781 kg Laboratory Results - last 24 hr 07/02/25 06:14: WBC 19.9 H, RBC 2.93 L, Hgb 8.2 L, Hct 27.7 L, MCV 94.5 H, MCH 28.0, MCHC 29.6 L, RDW 16.1, Plt Count 211 D, MPV 10.2, Neut % (Auto) 88.2 H, Lymph % (Auto) 4.5 L, [place] % (Auto) 6.7, Eos % (Auto) 0.0 L, Baso % (Auto) 0.1, Neut # (Auto) 17.6 H, Lymph # (Auto) 0.9, [place] # (Auto) 1.3 H, Eos # (Auto) 0.0, Baso # (Auto) 0.0, Sodium 134 L, Potassium 4.5, Chloride 100, Carbon Dioxide 33 H, Anion Gap 5.5, BUN 15, Creatinine 0.70 D, Estimated Creat Clear 84, Estimated GFR 112, Est GFR ( Amer) 136 D, Glucose 121 H, Calcium 8.5, Magnesium 2.3, Iron 40 L, TIBC 241 L, Iron Saturation 16.68867, Ferritin 35.9, Vitamin B12 > 1000 H, TSH 0.19 L 07/02/25 10:32: Vancomycin Trough 23.5 H I & O for Labs for Last 24 Hours: Intake & Output 06/29/25 06/30/25 07/01/25 07/02/25 23:59 23:59 23:59 23:59 Intake Total 350 / 572 2442 / 2796 1504 / 1504 Output Total 850 / 850 650 / 650 Balance 350 / 572 1592 / 1946 854 / 854 Weight 80.853 kg 82.554 kg 82.781 kg Microbiology Reports for the Last 24 Hours: Microbiology 07/01/25 11:45 Sputum - Expectorated Sputum Gram Stain - Final 06/30/25 20:39 Blood Blood Culture - Preliminary NO GROWTH AFTER 24 HOURS 06/30/25 20:25 Blood Blood Culture - Preliminary NO GROWTH AFTER 24 HOURS Constitutional: Present no acute distress, average body habitus, chronically ill appearing and cooperative Head: Present atraumatic Eyes: Present as per HPI ENT: Present normal exam Neck: Present normal inspection Respiratory: Present decreased breath sounds (Right lower lobe) and normal respiratory effort; Absent wheezes or crackles Cardiac: Present Reg Rate and Rhythm and No Murmur GI: Present soft and normal bowel sounds; Absent distention or tenderness Rectal (male): Present deferred (male): Present deferred Extremities: Present normal inspection and full ROM; Absent edema Skin: Present intact and dry; Absent erythema Neuro: Present Grossly Intact and moves all extremities Comment:: Flat affect Assessment and Plan *Assessment and plan (1) Sepsis: Status: Acute Category: Medical Code(s): A41.9 - Sepsis, unspecified organism (2) Pneumonia: Status: Acute Category: Medical Code(s): J18.9 - Pneumonia, unspecified organism (3) Acute and chronic respiratory failure with hypoxia: Status: Acute Category: Medical Code(s): J96.21 - Acute and chronic respiratory failure with hypoxia (4) Pleural effusion on right: Status: Acute Category: Medical Code(s): J90 - Pleural effusion, not elsewhere classified Plan Mr. Mckeon is a 69-year-old old male who resides at [facility]. He has a past medical history of lung cancer status post radiation at [facility] (adenocarcinoma RLL 2022 status post SBRT), atrial fibrillation, COPD on 4 L of oxygen, hypertension, hyperlipidemia, BPH. [facility] with [facility] distress. Patient e xtremely poor historian, and was unable to tell me that he came from [facility] at time of my bedside evaluation. Patient admitted for COPD exacerbation with possible parapneumonic effusion. Patient feels well today, on baseline O2 of 4 L nasal cannula. Pulmonology consulted. Plan of care is as follows: #Sepsis #Healthcare associated pneumonia #COPD exacerbation #Chronic hypoxic respiratory failure, 4 L ? Presented with progressive shortness of breath, CTA chest on admission suggestive of right lower lobe pneumonia versus necrosis/infarction in right lo wer lobe. Patient had recent stay at [facility] in [place] where he had a thoracentesis performed x 2 and a bronchoscopy FNA. Records are pending. ? Initial WBC 23, with tachycardia. Initially placed on BiPAP for significantly restricted airway movement, weaned back to baseline 4 L in the ED. VBG without hypercarbia. Patient white count yesterday down to 16.8, up today to 19.9?likely in the setting of steroid use. CBC ordered for the a.m. ? Continue vancomycin, Zosyn 3.375 g every 6 hours. Will transition to Augmentin at discharge. ? Patient received Solu-Medrol upon admission, continued with prednisone 10 mg daily during admission. ? Per pulmonology's recommendations patient to start Trelegy 100 inhaler daily along with DuoNebs 4 times daily as needed. Patient should follow-up with pulmonology at discharge. ? Sputum culture and blood cultures show no growth. #Iron deficient anemia ? Patient found to be anemic, low iron and TIBC. Patient will receive 1 dose of Venofer IV before discharge. Patient does take a daily iron supplement, should continue at discharge. Patient should follow-up with GI as he is unable to tell me if he has had a colonoscopy in the past. He does state that he thinks he has had a GI bleed in the past. No evidence of acute GI bleeding. #History of lung adenocarcinoma ? Adenocarcinoma, see HPI for details. Status post bronch/EBUS at [facility] April 2025. Previously treated with radiation at [facility]. Records pending. #Chest pain, resolved #HFpEF ? Serial troponins during hospitalization. Telemetry monitoring during admission uneventful. Ordered repeat troponin for a.m. serial troponins <0.01, BNP slightly elevated at 636. ? Echo shows low normal LV systolic function, 50%. Moderately to severely dilated RV with moderate reduction in RV function, biatrial dilation, small size circumferential pericardial effusion. No evidence of tamponade on echo. Increased Lasix dose from 20 mg daily to 40 mg daily. Continue metoprolol to tartrate 25 mg twice daily. Patient appeared hypervolemic on admission, no edema noted. Neuropathic pain: Cymbalta 60 mg p.o. daily Headache: Imitrex 50 mg as needed twice daily for headache not resolved by Tylenol. Mood disorder: BuSpar 5 mg p.o. 3 times daily, Risperdal 1 mg p.o. daily GERD: 40 mg p.o. daily Hypercholesterolemia: atorvastatin 40 mg p.o. daily BPH: Flomax 0.4 mL p.o. daily Anemia ferrous sulfate 324 milligrams p.o. daily. Hemoglobin 9.9 at time of admission. Atrial fibrillation: Eliquis 5 mg p.o. twice daily Full code Ambulate as tolerated VTE?Eliquis
--- NOTE | 2025-07-02 17:45 | PC.NURSE ---
patient is a/ox4, no periods of acute confusion noted this shift. remains on 4LNC O2 sats above 90%. noted patient had a new productive cough, sputum clear, Linn Bradley APRN notified. IS at bedside. uses urinal independently. call light within reach, c/o back pain earlier in shift, treated per OCT. no further requests at this time.
--- NOTE | 2025-07-02 17:48 | CA_ITS ---
APPROVED REPORT EXAM: Comprehensive 2D, Doppler, and color-flow Echocardiogram Director Global Development: Luzma Suggs RVT Ht: 5 ft 10 in Wt: 182lbs BSA: 2.01 BP: 138/74 mmHg Indications: CHEST PAIN 2D Dimensions IVSd 1.11 cm M: 0.6-1.2 LVEF (Visual) 67.20 % PWd 1.18 cm M: 0.6 - 1.2 LA Volume 33.50 mL LVDd 5.05 cm M: 4.2 - 5.9 LA Volume Index 16.67 mL/m2 (M/F) 16-34 LVDs 3.16 cm M: 2.5 - 4.0 M-Mode Dimensions LA Diam 3.45 cm (1.9-4.0) TAPSE 2.07 (<1.7) LV Diastology E Decel Time 250 (160-240 msec) E/A Ratio 1.2 Aortic Valve JOHANNA Index 1.62 cm2/m2 AoV Peak Henry. 120.0 (50-130 cm/s) AO Peak GR. 5.70 mmHg AO Mean GR. 2.60 (<5 mmHg) AO VTI 19.0 (18-25 cm) JOHANNA (VTI) 3.33 (2.5-4.5 cm2) Mitral Valve MV E Max Henry. 91.0 (40-130 cm/s) MV A Velocity 77.0 (40-130 cm/s) E/A Ratio 1.19 MV PHT 73.0 ms Pulmonary Valve PV Peak Velocity 85.0 (50-150 cm/s) Left Ventricle The left ventricle is normal size. Left ventricular systolic function is low-normal. There is increased left ventricular wall thickness. There is normal LV segmental wall motion. Transmitral Doppler flow pattern suggests impaired LV relaxation. LVEF is 50%. Right Ventricle The right ventricle is moderately to severely dilated. The right ventricular systolic function is moderately reduced. Atria The left atrium is mildly dilated. The right atrium is mildly dilated. There is no color Doppler evidence of interatrial shunt. Aortic Valve The aortic valve is mildly thickened. There is no hemodynamically significant aortic valvular stenosis. Trace aortic regurgitation is present. Mitral Valve The mitral valve is normal in structure. No evidence of mitral valve stenosis. Trace mitral regurgitation is present. Tricuspid Valve The tricuspid valve leaflets are thin and pliable. Trace tricuspid regurgitation. There is insufficient TR jet to estimate RVSP. Pulmonic Valve The pulmonary valve is grossly normal in structure. Trace pulmonic valve regurgitation is present. Great Vessels The aortic root is normal in size. IVC is normal in size and collapses >50% with inspiration. Pericardium There is a small-sized, circumferential pericardial effusion present. The largest pocket measures 0.7 cm in diastole anteriorly. There are no echo indications of tamponade. Other Information Study Quality: Fair Conclusion Low-normal LV systolic function (LVEF 50%). Moderately to severely dilated RV with moderate reduction in RV function. Biatrial dilation. No significant valvular stenosis or regurgitation. Small-sized, circumferential pericardial effusion present. The largest pocket measures 0.7 cm in diastole anteriorly. There are no echo indications of tamponade. Electronically signed by : Yana Lee MD 07/02/2025 11:47:54
--- NOTE | 2025-07-02 20:00 | PC.NURSE ---
Addendum entered by Luna Dixon RN 07/03/25 00:19: left patient on the 2L r/t oxygen sats greater than 90% Original Note: pt on 2L NC when coming on shift - left ba
[2025-07-02] MEDS: METOPROLOL TARTRATE 25MG TABLET 25 MG PO (21:38)
[2025-07-02] MEDS: VANCOMYCIN/WATER FOR INJ (PEG) 1.25 GM/250 ML PIGGYBACK IV (21:38)
[2025-07-02] MEDS: TAMSULOSIN 0.4MG CAPSULE 0.4 MG PO (21:38)
[2025-07-02] MEDS: ATORVASTATIN 40MG TABLET 40 MG PO (21:38)
[2025-07-02] MEDS: DOCUSATE SODIUM 100 MG CAPSULE PO (21:38)
[2025-07-02] MEDS: MELATONIN 5MG TABLET 5 MG PO (21:38)
[2025-07-03] VITALS: BP 114/66; PULSE 69; PULSE 75; RESP 16; TEMP 36.5; O2SAT 94
[2025-07-03] MEDS: PIPERACILLIN/TAZO 4.5 GM in 0.9 % SODIUM CHLORIDE 100 ML IV ×2 (00:55→04:54)
[2025-07-03 04:00] VITALS: BP 96/57; PULSE 70; RESP 18; TEMP 36.6; O2SAT 95; BMI 25.0
[2025-07-03 06:53] LABS: Hematocrit 30.0 % (42.0-52.0); Hemoglobin 8.5 g/dL (14.1-18.0); Immature Granulocytes % 0.4 %; Mean Corpuscular HGB Conc 28.3 g/dL (31.8-35.4); Mean Corpuscular Hemoglobin 27.4 pg (27.0-31.2); Mean Corpuscular Volume 96.8 fl (80-94); Nucleated Red Blood Cells % 0 %; Platelet Count 178 K/mm3 (142-424); Red Blood Count 3.10 M/mm3 (4.60-6.20); Red Cell Distribution Width-SD 58.3 fL; White Blood Count 11.3 K/mm3 (4.8-10.8)
[2025-07-03 06:59] LABS: Anion Gap 5.2 mEq/L (5-15); Blood Urea Nitrogen 18 mg/dl (9-20); Calcium 8.4 mg/dl (8.4-10.2); Carbon Dioxide 34 mmol/L (22.0-30.0); Chloride 101 mmol/L (98-107); Creatinine Clearance Estimated 82 mL/min (50-200); Creatinine,Serum 0.80 mg/dl (0.66-1.25); Estimated Glomerular Filt Rate 96 ml/min (>60); GFR (African American) 117 ML/MIN (>60); Glucose 98 mg/dl (74-100); Magnesium 2.3 mg/dl (1.6-2.3); Potassium 4.2 mmoL/L (3.5-5.1); Sodium 136 mmol/L (136-145)
[2025-07-03] MEDS: OXYCODONE 5MG IMMEDIATE RELEASE TABLET 5 MG PO (07:57)
[2025-07-03 08:00] VITALS: BP 102/58; PULSE 84; PULSE 90; RESP 18; TEMP 36.7; O2SAT 95
[2025-07-03] MEDS: DOCUSATE SODIUM 100 MG CAPSULE PO (08:11)
[2025-07-03] MEDS: PANTOPRAZOLE 40MG TABLET 40 MG PO (08:12)
[2025-07-03] MEDS: BUSPIRONE HCL 5 MG TABLET PO (08:12)
[2025-07-03] MEDS: APIXABAN 5MG TABLET 5 MG PO (08:12)
[2025-07-03] MEDS: FERROUS SULFATE 325MG TABLET 325 MG PO (08:12)
[2025-07-03] MEDS: FUROSEMIDE 40 MG TABLET PO (09:25)
--- NOTE | 2025-07-03 09:34 | XR_ITS ---
FINAL REPORT CLINICAL HISTORY: PNM/effusion COMPARISON: 07/02/2025 FINDINGS: A single frontal view of the chest was obtained. There is a stable right basilar opacity with associated pleural effusion. Left lung is clear. There is no evidence of effusion or pneumothorax. Mediastinum is unremarkable. Heart size is normal. IMPRESSION: No significant change. Reviewed, Interpreted and Dictated by Alysa Ortega MD Transcribed by Yuliana Conte Authenticated and [facility]
--- NOTE | 2025-07-03 09:34 | EXP.PULM.PN ---
Subjective *Date: 07/03/25 *Time: 12:29 Interval history: No acute respiratory vents overnight. Denies any new respiratory complaints. Pulmonology Exam Inpatient Vital signs and Labs for Last 24 Hours: Temp Pulse Resp BP Pulse Ox O2 Del Method O2 Flow Rate 98.0 F 84 18 102/58 L 95 Nasal Cannula 2 07/03/25 08:00 07/03/25 08:00 07/03/25 08:00 07/03/25 08:00 07/03/25 08:00 07/03/25 08:59 07/03/25 08:59 FiO2 28 07/01/25 00:20 Laboratory Results - last 24 hr 07/02/25 06:14: Iron 40 L, TIBC 241 L, Iron Saturation 16.94989, Ferritin 35.9, Vitamin B12 > 1000 H, TSH 0.19 L 07/02/25 10:32: Vancomycin Trough 23.5 H 07/03/25 05:58: WBC 11.3 H D, RBC 3.10 L, Hgb 8.5 L, Hct 30.0 L, MCV 96.8 H, MCH 27.4, MCHC 28.3 L, RDW 16.5, Plt Count 178, MPV 10.8 H, Neut % (Auto) 77.3, Lymph % (Auto) 11.5, [place] % (Auto) 9.2, Eos % (Auto) 1.4, Baso % (Auto) 0.2, Neut # (Auto) 8.7 H, Lymph # (Auto) 1.3, [place] # (Auto) 1.0, Eos # (Auto) 0.2, Baso # (Auto) 0.0, Sodium 136, Potassium 4.2, Chloride 101, Carbon Dioxide 34 H, Anion Gap 5.2, BUN 18, Creatinine 0.80, Estimated Creat Clear 82, Estimated GFR 96, Est GFR ( Amer) 117, Glucose 98, Calcium 8.4, Magnesium 2.3 Temp Pulse Resp BP Pulse Ox O2 Del Method O2 Flow Rate 98.4 F 77 15 97/59 L 96 Nasal Cannula 4 07/02/25 07:46 07/02/25 07:46 07/02/25 07:46 07/02/25 07:46 07/02/25 07:46 07/02/25 07:46 07/02/25 07:46 FiO2 28 07/01/25 00:20 Laboratory Results - last 24 hr 07/02/25 06:14: WBC 19.9 H, RBC 2.93 L, Hgb 8.2 L, Hct 27.7 L, MCV 94.5 H, MCH 28.0, MCHC 29.6 L, RDW 16.1, Plt Count 211 D, MPV 10.2, Neut % (Auto) 88.2 H, Lymph % (Auto) 4.5 L, [place] % (Auto) 6.7, Eos % (Auto) 0.0 L, Baso % (Auto) 0.1, Neut # (Auto) 17.6 H, Lymph # (Auto) 0.9, [place] # (Auto) 1.3 H, Eos # (Auto) 0.0, Baso # (Auto) 0.0, Sodium 134 L, Potassium 4.5, Chloride 100, Carbon Dioxide 33 H, Anion Gap 5.5, BUN 15, Creatinine 0.70 D, Estimated Creat Clear 84, Estimated GFR 112, Est GFR ( Amer) 136 D, Glucose 121 H, Calcium 8.5, Magnesium 2.3 I & O for Labs for Last 24 Hours: Intake & Output 06/30/25 07/01/25 07/02/25 07/03/25 23:59 23:59 23:59 23:59 Intake Total 350 / 572 2442 / 2796 2234 / 2474 740 / 740 Output Total 850 / 850 1050 / 1225 375 / 375 Balance 350 / 572 1592 / 1946 1184 / 1249 365 / 365 Weight 178 lb 4 oz 182 lb 182 lb 8 oz 179 lb 1 oz Intake & Output 06/29/25 06/30/25 07/01/25 07/02/25 23:59 23:59 23:59 23:59 Intake Total 350 / 572 2442 / 2796 1064 / 1064 Output Total 850 / 850 300 / 300 Balance 350 / 572 1592 / 1946 764 / 764 Weight 178 lb 4 oz 182 lb 182 lb 8 oz Microbiology Reports for the Last 24 Hours: Microbiology 07/01/25 11:45 Sputum - Expectorated Sputum Gram Stain - Final 07/01/25 11:45 Sputum - Expectorated Sputum Sputum Culture - Preliminary 06/30/25 20:39 Blood Blood Culture - Preliminary NO GROWTH AFTER 48 HOURS 06/30/25 20:25 Blood Blood Culture - Preliminary NO GROWTH AFTER 48 HOURS Microbiology 07/01/25 11:45 Sputum - Expectorated Sputum Gram Stain - Final 06/30/25 20:39 Blood Blood Culture - Preliminary NO GROWTH AFTER 24 HOURS 06/30/25 20:25 Blood Blood Culture - Preliminary NO GROWTH AFTER 24 HOURS Constitutional: Present moderate distress Head: Present normocephalic and atraumatic ENT: Present normal exam, normal oropharynx and mucous membranes moist Neck: Present normal inspection and full ROM Respiratory: Present respiratory distress, rhonchi, wheezes, diminished air movement and able to speak in complete sentences Cardiac: Present S1/S2, Tachycardia and radial pulses present GI: Present soft and distention; Absent tenderness or guarding Skin: Present intact; Absent cyanosis or jaundice Neuro: Present alert, awake and oriented x 3 Extremities: Present normal inspection; Absent clubbing or cyanosis Psychiatric: Present normal affect and cooperative Assessment and Plan *Assessment and plan (1) Sepsis: Status: Acute Category: Medical Code(s): A41.9 - Sepsis, unspecified organism (2) Pneumonia: Status: Acute Category: Medical Code(s): J18.9 - Pneumonia, unspecified organism (3) Acute and chronic respiratory failure with hypoxia: Status: Acute Category: Medical Code(s): J96.21 - Acute and chronic respiratory failure with hypoxia (4) Pleural effusion on right: Status: Acute Category: Medical Code(s): J90 - Pleural effusion, not elsewhere classified Plan Mr. 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 He had baseline not using any inhaler therapy using 4 L nasal cannula oxygen supplementation. As per the note patient recently underwent bronchoscopy EBUS FNA at [facility] April 2025. Afebrile. Hemodynamically stable. Neutrophilic predominant leukocytosis. CTA upon admission no pulmonary embolism. Small to moderate right pleural effusion with no consolidative/airspace changes. Underlying lung mass with necrotic changes cannot be completely ruled although less likely. Patient admits he underwent thoracentesis within the last 2 months along with bronchoscopy EBUS FNA at [facility]. Unclear the circumstances as patient could not recall much of the details. On examination no acute respiratory distress. At baseline oxygen supplementation saturating 95% and above Interval update: No acute respiratory vents overnight. Oxygen commencement to 1 L nasal cannula as patient saturating 98% on 2 L nasal cannula. Records obtained from send to [facility] reviewed, had a thoracentesis on 05/08/2009 21. Pleural fluid cytology from 916 negative for malignancy. Underwent bronchoscopy EBUS FNA nondiagnostic recommended PET CT scan. Patient currently not having any oncologist. Plan: Trelegy 100 inhaler along with DuoNebs 4 times daily as needed No need for noninvasive ventilatory therapy Blood cultures no growth 24 hours. Antibiotics can be weaned to Augmentin from pulmonary standpoint to complete a total of 7-day course. # Thank you for involving pulmonary in this patient care. Will follow in pulmonary clinic 5 to 10 days postdischarge
--- NOTE | 2025-07-03 10:05 | P.DS_ITS ---
<Statement entered by Harjinder Baker MD - 07/03/25 15:04> Discussed case with nurse practitioner, agree with exam findings and care plan as documented. General Admission date:: 06/30/25 Discharge date: 07/03/25 HPI HPI HPI: Patient with past medical history of lung cancer status post radiation at [facility] (adenocarcinoma RLL 2022 status post SBRT), atrial fibrillation, COPD on 4 L of oxygen, hypertension, hyperlipidemia, BPH. [facility] with respiratory distress. Patient extremely poor historian, and was unable to tell me that he came from [facility] at time of my bedside evaluation. Per record review on [facility] noted that patient originally treated at [facility] May 05 to May 18 for acute on chronic respiratory failure. Patient underwent thoracentesis 05/08 and bronchoscopy/EBUS 05/11 at [facility]. Oncology at that time recommended PET/CT follow-up scan. Patient underwent second thoracentesis at [facility] 05/16 with 1.3 L removed. Patient also completed course of antibiotics during [facility] hospitalization. Patient then discharged to [facility]. For unknown reasons, patient transferred to [facility] June 09, 2025. [facility] sent patient to emergency room today for shortness of breath evaluation. As previously mentioned, patient extremely inaccurate historian, but states he has been short of breath for the past 2 to 3 days. Also complains of chest discomfort over the past 2 to 3 days. Describes chest discomfort as 8/10, achy, substernal, nonradiating, lasting minutes, without exacerbating or ameliorating factors. States that he recently had rectal surgery and black blood wound, and I do not know why. Denies fevers, chills, known sick contacts, productive cough, GI bleeding. CTA chest done in emergency room shows possible parapneumonic effusion or airspace disease. Hospital Course Hospital Course Hospital Course: Mr. Mckeon is a 69-year-old old male who resides at [facility] nursing facility. He has a past medical history of lung cancer status post radiation at [facility] (adenocarcinoma RLL 2022 status post SBRT), atrial fibrillation, COPD on 4 L of oxygen, hypertension, hyperlipidemia, BPH. [facility] with respiratory distress. Patient extremely poor historian, and was unable to tell me that he came from [facility] at time of my bedside evaluation. Patient admitted for COPD exacerbation with possible parapneumonic effusion. Patient feels well today, below baseline O2 of 4 L, currently on 2 L maintaining oxygen saturation of 95%. Pulmonology consulted. Plan of care is as follows: #Sepsis #Healthcare associated pneumonia #COPD exacerbation #Chronic hypoxic respiratory failure, 4 L ? Presented with progressive shortness of breath, CTA chest on admission suggestive of right lower lobe pneumonia versus necrosis/infarction in right lower lobe. Patient had recent stay at [facility] in [place] where he had a thoracentesis performed x 2 and a bronchoscopy FNA. Thoracentesis fluid showed no evidence of malignancy. Bronchoscopy was nondiagnostic. Per my review of records from [facility] recommendations of follow-up PET scan. ? Initial WBC 23, with tachycardia. Initially placed on BiPAP for significantly restricted airway movement, weaned back to baseline 4 L in the ED. VBG without hypercarbia. Patient white count down to 11.3 today of discharge. ? Patient received vancomycin and Zosyn during admission, transitioning to Augmentin 875-125 mg twice daily to complete a total of 7 days. ? Patient received Solu-Medrol upon admission, continued with prednisone 10 mg daily during admission. ? Per pulmonology's recommendations patient to start Trelegy 100 inhaler daily along with DuoNebs 4 times daily as needed. Patient should follow-up with pulmonology at discharge. ? Sputum culture and blood cultures show no growth after 48 hours. #Iron deficient anemia ? Patient found to be anemic, low iron and TIBC. Patient will receive 1 dose of Venofer IV before discharge. Patient does take a daily iron supplement, should continue at discharge. Patient should follow-up with GI as he is unable to tell me if he has had a colonoscopy in the past. He does state that he thinks he has had a GI bleed in the past. No evidence of acute GI bleeding. ?Received records from [facility], patient had a hospital stay in March 2025 for GI bleed. 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 Patient's Eliquis was held at that time but orders to resume Eliquis after discharge. Patient denies melena or bright red bleeding per rectum. No complaints of hematemesis. Patient hemoglobin stable day of discharge at 8.5. #History of lung adenocarcinoma ? Adenocarcinoma, see HPI for details. Status post bronch/EBUS at [facility] April 2025. Previously treated with radiation at [facility]. #Chest pain, resolved #HFpEF ? Serial troponins during hospitalization. Telemetry monitoring during admission uneventful. Ordered repeat troponin for a.m. serial troponins <0.01, BNP slightly elevated at 636. ? Echo shows low normal LV systolic function, 50%. Moderately to severely dilated RV with moderate reduction in RV function, biatrial dilation, small size circumferential pericardial effusion. No evidence of tamponade on echo. Increased Lasix dose from 20 mg daily to 40 mg daily. Continue metoprolol to tartrate 25 mg twice daily. Patient appeared hypervolemic on admission, patient will continue with Lasix 40 mg daily at discharge. Neuropathic pain: Cymbalta 60 mg p.o. daily Headache: Imitrex 50 mg as needed twice daily for headache not resolved by Tylenol. Mood disorder: BuSpar 5 mg p.o. 3 times daily, Risperdal 1 mg p.o. daily GERD: 40 mg p.o. daily Hypercholesterolemia: atorvastatin 40 mg p.o. daily BPH: Flomax 0.4 mL p.o. daily Anemia: ferrous sulfate 324 milligrams p.o. daily. Atrial fibrillation: Eliquis 5 mg p.o. twice daily Total time spent on discharge 35 minutes in counseling, documentation, chart review, and direct care with patient. Exam Data for Last 24 hours Vital signs and Labs for Last 24 Hours: Temp Pulse Resp BP Pulse Ox O2 Del Method O2 Flow Rate 98.4 F 77 15 97/59 L 96 Nasal Cannula 4 07/02/25 07:46 07/02/25 07:46 07/02/25 07:46 07/02/25 07:46 07/02/25 07:46 07/02/25 09:00 07/02/25 07:46 FiO2 28 07/01/25 00:20 Laboratory Results - last 24 hr 07/02/25 06:14: WBC 19.9 H, RBC 2.93 L, Hgb 8.2 L, Hct 27.7 L, MCV 94.5 H, MCH 28.0, MCHC 29.6 L, RDW 16.1, Plt Count 211 D, MPV 10.2, Neut % (Auto) 88.2 H, Lymph % (Auto) 4.5 L, Rabun % (Auto) 6.7, Eos % (Auto) 0.0 L, Baso % (Auto) 0.1, Neut # (Auto) 17.6 H, Lymph # (Auto) 0.9, Rabun # (Auto) 1.3 H, Eos # (Auto) 0.0, Baso # (Auto) 0.0, Sodium 134 L, Potassium 4.5, Chloride 100, Carbon Dioxide 33 H, Anion Gap 5.5, BUN 15, Creatinine 0.70 D, Estimated Creat Clear 84, Estimated GFR 112, Est GFR ( Amer) 136 D, Glucose 121 H, Calcium 8.5, Magnesium 2.3, Iron 40 L, TIBC 241 L, Iron Saturation 16.56103, TSH 0.19 L 07/02/25 10:32: Vancomycin Trough 23.5 H I & O for Last 24 hours: Intake & Output 06/29/25 06/30/25 07/01/25 07/02/25 23:59 23:59 23:59 23:59 Intake Total 350 / 572 2442 / 2796 1064 / 1064 Output Total 850 / 850 300 / 300 Balance 350 / 572 1592 / 1946 764 / 764 Weight 80.853 kg 82.554 kg 82.781 kg Microbiology Reports for the Last 24 Hours: Microbiology 07/01/25 11:45 Sputum - Expectorated Sputum Gram Stain - Final 06/30/25 20:39 Blood Blood Culture - Preliminary NO GROWTH AFTER 24 HOURS 06/30/25 20:25 Blood Blood Culture - Preliminary NO GROWTH AFTER 24 HOURS Constitutional Constitutional: no acute distress, average body habitus, chronically ill appearing and cooperative *Routine HEENT Exam Head: Present normocephalic Eye: Present EOMI and PERRL ENT: Present mucous membranes moist *Routine Neck Exam Neck: Present supple; Absent lymphadenopathy *Routine Respiratory Exam Respiratory: Present diminished air movement (Right lower lobe), normal respiratory effort and able to speak in complete sentences; Absent respiratory distress *Routine Cardiovascular Exam Cardiovascular: Present RRR *Routine Abdominal Exam Abdominal: Present soft and normoactive bowel sounds; Absent tenderness or distended *Routine Rectal Exam Patient deferred: visual exam *Routine Exam Patient deferred: penile exam *Routine Extremities Exam Extremities: Absent cyanosis, clubbing or edema *Routine Skin Exam Skin: Present intact, dry and warm; Absent rash *Routine Neurological Exam Neurological: Present alert, oriented X3, moving all extremities and normal speech Comments: Poor historian Routine Psychiatric Exam Comments: Flat affect Results Data Completed and Pending Labs on day of discharge: Labs from last 24 hours 07/02/25 07/02/25 10:32 06:14 WBC 19.9 H RBC 2.93 L Hgb 8.2 L Hct 27.7 L MCV 94.5 H MCH 28.0 MCHC 29.6 L RDW 16.1 Plt Count 211 D MPV 10.2 Neut % (Auto) 88.2 H Lymph % (Auto) 4.5 L Rabun % (Auto) 6.7 Eos % (Auto) 0.0 L Baso % (Auto) 0.1 Neut # (Auto) 17.6 H Lymph # (Auto) 0.9 Rabun # (Auto) 1.3 H Eos # (Auto) 0.0 Baso # (Auto) 0.0 Sodium 134 L Potassium 4.5 Chloride 100 Carbon Dioxide 33 H Anion Gap 5.5 BUN 15 Creatinine 0.70 D Estimated Creat Clear 84 Estimated GFR 112 Est GFR ( Amer) 136 D Glucose 121 H Calcium 8.5 Magnesium 2.3 Iron 40 L TIBC 241 L Iron Saturation 16.61847 TSH 0.19 L Vancomycin Trough 23.5 H Preliminary micro results at discharge 06/30/25 20:39 Blood Culture - Preliminary Blood NO GROWTH AFTER 24 HOURS 06/30/25 20:25 Blood Culture - Preliminary Blood NO GROWTH AFTER 24 HOURS DS: Diagnosis Discharge Diagnosis (1) Sepsis: Status: Acute Code(s): A41.9 - Sepsis, unspecified organism (2) Pneumonia: Status: Acute Code(s): J18.9 - Pneumonia, unspecified organism (3) Acute and chronic respiratory failure with hypoxia: Status: Acute Code(s): J96.21 - Acute and chronic respiratory failure with hypoxia (4) Pleural effusion on right: Status: Acute Code(s): J90 - Pleural effusion, not elsewhere classified (5) Iron deficiency anemia: Status: Acute Code(s): D50.9 - Iron deficiency anemia, unspecified Meds Home Medications and Allergies Home Medications ?Medication ?Instructions ?Recorded ?Confirmed ?Type albuterol sulfate 2.5 mg/0.5 mL 2.5 mg inhalation Q6HP PRN 06/11/25 07/01/25 History solution for nebulization Shortness Of Breath apixaban 5 mg tablet (Eliquis) 5 mg PO BID 06/11/25 History atorvastatin 40 mg tablet (Lipitor) 40 mg PO HS 07/01/25 History docusate sodium 100 mg capsule 100 mg PO BID 06/11/25 07/01/25 History duloxetine 60 mg capsule,delayed 60 mg PO DAILY 07/01/25 History release ferrous sulfate 324 mg (65 mg 324 mg PO DAILY 06/11/25 07/01/25 History iron) tablet,delayed release levalbuterol HCl 1.25 mg/3 mL 1.25 mg inhalation Q6HP PRN 06/11/25 07/01/25 History solution for nebulization Shortness Of Breath Or [place] ing melatonin 3 mg capsule 6 mg PO HS 06/11/25 07/01/25 History metoprolol tartrate 25 mg tablet 25 mg PO BID 06/11/25 07/01/25 History pantoprazole 40 mg tablet,delayed 40 mg PO BID 07/01/25 History release (Protonix) prednisone 10 mg tablet 10 mg PO DAILY 06/11/2505/17 History tamsulosin 0.4 mg capsule (Flomax) 0.4 mg PO DAILY 07/01/25 History tizanidine 4 mg capsule 4 mg PO TIDP PRN Muscle Spas m 06/11/25 07/01/25 History ascorbic acid (vitamin C) 500 mg 500 mg PO DAILY 07/0107/01/25 History tablet buspirone 5 mg tablet 5 mg PO TID 07/01/25 5 History fluticasone fur. 200 mcg-umeclid 1 inh inhalation LUIS Y 07/01/25 07/01/25 History 62.5 mcg-vilant 25 mcg inhalat.powder (Trelegy Ellipta) oxycodone 5 mg tablet 5 mg PO Q8HP PRN Moderate Pa in 07/01/25 07/01/25 History (Scale Score 5-6) risperidone 1 mg tablet 1 mg PO DAILY 07/01/2507/01 History furosemide 20 mg tablet (Lasix) 40 mg (2 x 20 mg) PO D AILY 30 days 07/02/25 07/01/25 Rx #60 tabs amoxicillin 875 mg-potassium 1 tab PO BID #6 tabs 06/23 09/16 Rx clavulanate 125 mg tablet New Prescriptions to Start Prescriptions: amoxicillin-pot clavulanate Linn Bradley Allergies Allergy/AdvReac Type Severity Reaction Status Date / Time No Known Allergies Allergy Verified 06/11/25 09:36 Discharge Plan Disposition Patient Disposition: er Intermediate Care Fac Condition: Fair Discharge Order Discharge Orders: Discharge Order (Routine); Ordered 07/03/25 Ordered By: Linn Bradley Follow up Plan Follow up with: Rolando Hamilton II, MD [Staff Physician, Gastroenterology] - Enter time for follow up George Valerio MD [Staff Physician, Oncology] - Enter time for follow up Austen Valdez MD [Physician, Pulmonology] - Enter time for follow up Brennen Heredia MD [Primary Care Provider, Family Practice] - Enter time for follow up Marcos Lee MD [Staff Physician, Cardiology] - Enter time for follow up Prescriptions/Medication Reconciliation: New amoxicillin-pot clavulanate 875-125 mg tablet 1 tab PO BID Qty: 6 0RF Continued atorvastatin [Lipitor] 40 mg tablet 40 mg PO HS prednisone 10 mg tablet 10 mg PO DAILY tamsulosin [Flomax] 0.4 mg capsule 0.4 mg PO DAILY pantoprazole [Protonix] 40 mg tablet,delayed release (DR/EC) 40 mg PO BID docusate sodium 100 mg capsule 100 mg PO BID levalbuterol HCl 1.25 mg/3 mL solution for nebulization 1.25 mg inhalation Q6HP PRN (Reason: Shortness Of Breath Or Wheezing) metoprolol tartrate 25 mg tablet 25 mg PO BID albuterol sulfate 2.5 mg/0.5 mL solution for nebulization 2.5 mg inhalation Q6HP PRN (Reason: Shortness Of Breath) duloxetine 60 mg capsule,delayed release(DR/EC) 60 mg PO DAILY tizanidine 4 mg capsule 4 mg PO TIDP PRN (Reason: Muscle Spasm) Eliquis 5 mg tablet 5 mg PO BID melatonin 3 mg capsule 6 mg PO HS ferrous sulfate 324 mg (65 mg iron) tablet,delayed release (DR/EC) 324 mg PO DAILY buspirone 5 mg tablet 5 mg PO TID Trelegy Ellipta 200-62.5-25 mcg blister with device 1 inh INHALATION DAILY ascorbic acid (vitamin C) 500 mg Tablet 500 mg PO DAILY risperidone 1 mg Tablet 1 mg PO DAILY oxycodone 5 mg Tablet 5 mg PO Q8HP PRN (Reason: Moderate Pain (Scale Score 5-6)) Changed furosemide [Lasix] 20 mg tablet 40 mg PO DAILY 30 Days Qty: 60 0RF Problem Reconciliation Problems Reviewed?: Yes Patient Discharge Instructions ACTIVITY: Continue current activity DIET: continue same diet Patient Instructions: DI for Chronic Obstructive Pulmonary Disease, DI for Pneumonia in Adults, DI for Sepsis in Adults, Stop Light Pneumonia, Stop Light COPD, Stop Light Infection Print Language: Icelandic Providers Primary Care Provider: Brennen Heredia Provider: Jam Ledesma Attending Provider: Jam Ledesma
[2025-07-03 12:00] VITALS: BP 118/61; PULSE 90; PULSE 95; RESP 16; TEMP 36.9; O2SAT 90
[2025-07-03] MEDS: ONDANSETRON 4MG/2ML VIAL 4 MG IV (13:54)
--- NOTE | 2025-07-03 14:23 | PC.NURSE ---
attempted to call pt's sister to notify of d/c back to [facility]. Number is not available to take calls at this time. Unable to leave any messages.
[2025-07-04 17:52] LABS: Body Fluid Culture, Sterile Not indicated. (.); Specimen Source Urine (.)
[2025-07-04 18:22] LABS: Legionella pneumophila Urinary Negative (Negative)
== END 2025-07-03 14:13 | DRG 871 ==
LOC: ER 20:23 → 2ND 22:37
PROVIDERS: Internal Medicine; Admitting Provider Student in an Organized Health Care Education/Training Program; Emergency Provider Student in an Organized Health Care Education/Training Program; PCP Family Medicine; Visit Provider Student in an Organized Health Care Education/Training Program
DX: A41.9 Sepsis, unspecified organism (principal); J18.9 Pneumonia, unspecified organism; J96.21 Acute and chronic respiratory failure with hypoxia; J44.1 Chronic obstructive pulmonary disease with (acute) exacerbation; J44.0 Chronic obstructive pulmonary disease with (acute) lower respiratory infection; I50.32 Chronic diastolic (congestive) heart failure; Z99.81 Dependence on supplemental oxygen; N40.0 Benign prostatic hyperplasia without lower urinary tract symptoms; Y95 Nosocomial condition; D50.9 Iron deficiency anemia, unspecified; M79.2 Neuralgia and neuritis, unspecified; R51.9 Headache, unspecified; K21.9 Gastro-esophageal reflux disease without esophagitis; E78.00 Pure hypercholesterolemia, unspecified; I48.91 Unspecified atrial fibrillation; Z79.01 Long term (current) use of anticoagulants; Z85.118 Personal history of other malignant neoplasm of bronchus and lung; Z92.3 Personal history of irradiation; I25.10 Atherosclerotic heart disease of native coronary artery without angina pectoris; F32.A Depression, unspecified; F17.210 Nicotine dependence, cigarettes, uncomplicated; Z95.5 Presence of coronary angioplasty implant and graft; Z79.52 Long term (current) use of systemic steroids; I11.0 Hypertensive heart disease with heart failure
CPT/HCPCS: 0223U; 36415; 71045; 71275; 80048; 80053; 80202; 82607; 82728; 82803; 83540; 83550; 83605; 83735; 83880; 84145; 84443; 84484; 85007; 85025; 85378; 87040; 87070; 87081; 87205; 87449; 87899; 89220; 93306; 94640; 94760; 94761; 97162; 97166; 99285; J0456; J0696; J1756; J1938; J2405; J2543; J2919; J3375; J3475; J7050; Q9967

== ENCOUNTER 2025-07-17 12:35 | Outpatient (CLI) | payer MEDICARE, SELFPAY ==
--- OUTSIDE RECORDS SUMMARY | 2025-07-17 12:37 | XMS_ITS | Clinical Summary ---
Author Organization [facility] Address [address] [place] [address] Phone Care Team Providers Care Meat Slicer Name Role Phone Unavailable Unavailable Conditions or Problems No information available. Medications No information available. Medications Administered No information available. Allergies, Adverse Reactions, Alerts No information available. Results No information available. Plan of Care No information available. Procedures No information available. Vital Signs No information available. Immunizations No information available. Advance Directives No information available.
[2025-07-17 12:51] LABS: Hematocrit 32.9 % (42.0-52.0); Hemoglobin 9.5 g/dL (14.1-18.0); Immature Granulocytes % 0.3 %; Mean Corpuscular HGB Conc 28.9 g/dL (31.8-35.4); Mean Corpuscular Hemoglobin 27.6 pg (27.0-31.2); Mean Corpuscular Volume 95.6 fl (80-94); Nucleated Red Blood Cells % 0 %; Platelet Count 233 K/mm3 (142-424); Red Blood Count 3.44 M/mm3 (4.60-6.20); Red Cell Distribution Width-SD 57.4 fL; White Blood Count 11.6 K/mm3 (4.8-10.8)
[2025-07-17 13:33] LABS: Iron 47 ug/dL (49-181)
[2025-07-17 13:43] LABS: Total Iron Binding Capacity 271 ug/dL (261-462)
[2025-07-17 14:19] LABS: Ferritin 56.8 ng/ml (17.9-464); Total Cells Counted 100
[2025-07-17 14:20] LABS: RBC Morphology Normal
== END 2025-07-17 23:59 | disposition home or self-care (01) ==
LOC: LAB 12:36
PROVIDERS: PCP Family Medicine; Visit Provider Nurse Practitioner Family
DX: D50.9 Iron deficiency anemia, unspecified (principal)
CPT/HCPCS: 36415; 82728; 83540; 83550; 85007; 85025

== ENCOUNTER 2025-07-28 13:54 | Observation (INO) | payer MEDICARE, SELFPAY ==
[2025-07-28] VITALS (10 sets, daily range): BP systolic 122–155; BP diastolic 64–84; PULSE 85–112; RESP 16–22; TEMP 36.7–37; O2SAT 96–100; BMI 28.7; BMI 23.3
--- NOTE | 2025-07-28 14:02 | XR_ITS ---
PROCEDURE INFORMATION: Exam: XR Chest Exam date and time: 07/28/2025 2:12 PM Age: 69 years old Clinical indication: Dyspnea TECHNIQUE: Imaging protocol: Radiologic exam of the chest. Views: 1 view. Total images: 1 COMPARISON: CR XR CHEST PORTABLE 07/03/2025 9:31 AM FINDINGS: Lungs: Atelectatic and/or early infiltrative changes noted within the right lower lobe. Pleural spaces: Right pleural effusion. Heart/Mediastinum: The heart is not enlarged. Vasculature: Mild atherosclerotic disease. Bones/joints: Rightward curvature of the thoracic spine with mild degenerative changes. IMPRESSION: 1. Right pleural effusion. 2. Atelectatic and/or early infiltrative changes noted within the right lower lobe.
--- NOTE | 2025-07-28 14:10 | ED_ITS ---
<Statement entered by Josi Fernandez MD - 08/02/25 17:05> I was consulted by the POLLY, and we discussed the complexity of the problems being addressed. I approved the treatment and management plan for this patient's care in the emergency department, thus performing a substantive portion of the medical decision making. Josi Fernandez MD, AILYN, FACEP Discharge Plan Disposition Patient Disposition: Admitted Clinical Impressions Clinical Impression: Pleural effusion, Increasing shortness of breath Discharge ED Provider: Josi Fernandez General Adult HPI <MARIVEL Martinez - Last Filed: 07/28/25 16:09> General Chief complaint: Shortness of Breath/Dyspnea Stated complaint: [id number] help ADLs Time Seen by Provider: 07/28/25 13:54 History of Present Illness HPI narrative: This is a pleasant 69-year-old male who is brought in by EMS today for evaluation of shortness of breath and anxiety ongoing for 3 days, with recent workup by cardiology with pericardial effusion without tamponade seen on echo with recent discharge from hospital for pneumonia and COPD exacerbation on 07/03/2025. Related Data Home Medications ?Medication ?Instructions ?Recorded ?Confirmed albuterol sulfate 2.5 mg/0.5 mL 2.5 mg inhalation Q6HP PRN 06/11/25 07/28/25 solution for nebulization Shortness Of Breath apixaban 5 mg tablet (Eliquis) 5 mg PO BID 06/11/25 atorvastatin 40 mg tablet (Lipitor) 40 mg PO HS 07/28/25 docusate sodium 100 mg capsule 100 mg PO BID 06/11/25 07/28/25 duloxetine 60 mg capsule,delayed 60 mg PO DAILY 07/28/25 release ferrous sulfate 324 mg (65 mg 324 mg PO DAILY 06/11/25 07/28/25 iron) tablet,delayed release melatonin 3 mg capsule 6 mg PO HS 06/11/25 07/28/25 metoprolol tartrate 25 mg tablet 25 mg PO BID 06/11/25 07/28/25 pantoprazole 40 mg tablet,delayed 40 mg PO BID 5 07/28/25 release (Protonix) prednisone 10 mg tablet 10 mg PO DAILY 06/11/25 1202/14 tamsulosin 0.4 mg capsule (Flomax) 0.4 mg PO DAILY 07/28/25 ascorbic acid (vitamin C) 500 mg 500 mg PO DAILY 07/0107/28/25 tablet buspirone 5 mg tablet 5 mg PO TID 07/01/25 5 fluticasone fur. 200 mcg-umeclid 1 inh inhalation LUIS Y 07/01/25 07/28/25 62.5 mcg-vilant 25 mcg inhalat.powder (Trelegy Ellipta) oxycodone 5 mg tablet 5 mg PO Q8HP PRN Moderate Pa in 07/01/25 07/28/25 (Scale Score 5-6) risperidone 1 mg tablet 1 mg PO DAILY 07/01/2507/28 furosemide 40 mg tablet 40 mg PO DAILY 07/12/2502/14 Previous Rx's ?Medication ?Instructions ?Recorded polyethylene glycol 3350 17 17 g PO DAILY PRN constipa tion 07/24/25 gram/dose oral powder (Miralax) #510 grams Allergies Allergy/AdvReac Type Severity Reaction Status Date / Time diclofenac Allergy Unknown Unknown Verified 07/24/25 12:13 allergy reaction [facility] <MARIVEL Martinez - Last Filed: 07/28/25 16:09> [facility] Disclaimer: The information contained in this section may have been updated after the patient was seen, as this information can be updated by other users. Medical History Pericardial effusion Shortness of Breath Pleural effusion on right Pleural effusion, left Acute and chronic respiratory failure with hypoxia Lung cancer Right lower lobe, completed radiation treatments at [facility] in July, Onychomycosis Cataracts, bilateral Alteration in physical mobility Abnormal gait Generalized muscle weakness Constipation Pleural effusion Heart failure HTN (hypertension) Depressive disorder Delirium Hyperlipemia Protein calorie malnutrition Malignant neoplasm Sepsis Insomnia Mood disorder Chronic iron deficiency anemia BPH (benign prostatic hyperplasia) A-fib Hypoxic respiratory failure COPD (chronic obstructive pulmonary disease) S/P radiation therapy Cancer of right lung CAD (coronary artery disease) Surgical History History of cholecystectomy Presence of coronary angioplasty implant and graft Social History (Reviewed 07/24/25 @ 12:16 by RENATE Ortega Smoking Status: Former smoker tobacco type: cigarettes years smoked: 20 smoking status stop date: april 2024 how long ago did patient quit smokin year quit status: considering quitting alcohol intake: never current occupational status: retired Travel in the last 8 weeks?: None marital status: single number of children: 0 Have you lived/traveled outside [place] in past 30 days?: No Contact w/someone who lives/traveled outside US past 30 days?: No Exposure to someone with infectious disease in past 14 days?: No Do you have a fever (greater than 100.4 F or 38 C)?: No Have you tested positive for COVID-19?: No Exposed to someone with COVID-19 in past 14 days?: No Do you have a sore throat?: No Do you have a cough?: No Do you have any weakness?: No Do you have any diarrhea?: No Are you experiencing any unusual bleeding?: No Do you have any muscle aches/pain?: No Do you have any abdominal pain?: No Are you experiencing loss of taste or smell?: No Other Medical History Have you received the Flu Vaccine for this season: No Have you received the Pneumonia Vaccine: No <MARIVEL Martinez - Last Filed: 07/28/25 16:09> ROS Obtained: Yes Systems reviewed as appropriate & no additional complaints except as documented Physical Exam <MARIVEL Martinez - Last Filed: 07/28/25 16:09> General General appearance: alert and in no apparent distress Head Head exam: atraumatic Eye Eye exam: Present PERRL Neck Neck exam: Present normal inspection Respiratory Respiratory exam: Absent normal lung sounds bilaterally (right lung sounds diminished) Cardiovascular Cardiovascular exam: Present regular rate and tachycardia Abdominal Exam Abdominal exam: Present soft; Absent tenderness Extremities Exam Extremities exam: Present normal inspection Neurological Exam Neurological exam: Present alert; Absent motor sensory deficit Medical Decision Making <MARIVEL Martinez - Last Filed: 07/28/25 16:09> Medical Records Screening: Per USPSTF and CDC recommendations, given the prevalence of disease in our region, it is our hospital?s policy to screen for HIV and viral Hepatitis for all patients aged 18 and over and those with ongoing risk factors. Julián Inquiry Pt receiving controlled substance: No Vital Signs: 07/28/25 13:59 07/28/25 14:00 07/28/25 14:10 Temperature 98.6 F Temperature Source Oral Pulse Rate 106 H 104 H Pulse Rate [Right Radial] 108 H Respiratory Rate 16 19 22 Blood Pressure 127/78 137/84 Blood Pressure [Right Arm] 132/81 Blood Pressure Mean [Right Arm] 98 Blood Pressure Source Blood Pressure Source [Right Arm] Automatic Cuff Blood Pressure Position Blood Pressure Position [Right Arm] Supine 02 Sat by Pulse Oximetry 98 99 99 Oxygen Delivery Method Nasal Cannula Oxygen Flow Rate (LPM) 4 07/28/25 14:30 07/28/25 15:00 07/28/25 15:31 Temperature Temperature Source Pulse Rate 112 H 100 H 97 H Pulse Rate [Right Radial] Respiratory Rate 16 19 20 Blood Pressure 123/75 Blood Pressure [Right Arm] Blood Pressure Mean [Right Arm] Blood Pressure Source Blood Pressure Source [Right Arm] Blood Pressure Position Blood Pressure Position [Right Arm] 02 Sat by Pulse Oximetry 98 100 100 Oxygen Delivery Method Nasal Cannula Oxygen Flow Rate (LPM) 4 07/28/25 16:00 07/28/25 16:21 Temperature 98.4 F Temperature Source Oral Pulse Rate 94 H 94 H Pulse Rate [Right Radial] Respiratory Rate 16 17 Blood Pressure 129/78 129/78 Blood Pressure [Right Arm] Blood Pressure Mean [Right Arm] Blood Pressure Source Automatic Cuff Blood Pressure Source [Right Arm] Blood Pressure Position Supine Blood Pressure Position [Right Arm] 02 Sat by Pulse Oximetry 100 Oxygen Delivery Method Nasal Cannula Nasal Cannula Oxygen Flow Rate (LPM) 4 4 Lab Data Lab Results 07/28/25 14:28: VBG pH 7.31, VBG pCO2 71.1 H, VBG pO2 38.7, VBG HCO3 35.0 H, VBG Total CO2 37.2 H, VBG O2 Saturation 64.3, VBG Base Excess 8.7 H, VBG Lactic Acid 3.1 H 07/28/25 14:43: WBC 8.7, RBC 3.24 L, Hgb 8.5 L, Hct 29.6 L, MCV 91.4, MCH 26.2 L , MCHC 28.7 L, RDW 15.7, Plt Count 207, MPV 10.3, Neut % (Auto) 91.5 H, Lymph % (Auto) 2.9 L, White % (Auto) 5.2, Eos % (Auto) 0.0 L, Baso % (Auto) 0.2, Neut # (Auto) 8.0 H, Lymph # (Auto) 0.3 L, White # (Auto) 0.5, Eos # (Auto) 0.0, Baso # (Auto) 0.0, Total Counted 100, Neutrophils % (Manual) 90 H, Lymphocytes % (Manual) 4 L, Monocytes % (Manual) 6, Platelet Estimate Normal, RBC Morphology Normal, D-Dimer 2.07 H, Sodium 134 L, Potassium 3.9, Chloride 94 L, Carbon Dioxide 36 H, Anion Gap 7.9, BUN 13, Creatinine 0.70, Estimated Creat Clear 95, Estimated GFR 112, Est GFR ( Amer) 136, Glucose 200 H, Calcium 8.6, Total Bilirubin 0.5, AST 19, ALT 18, Alkaline Phosphatase 80, Troponin I < 0.01, N T-Pro-B Natriuret Pep 494 H, Total Protein 6.4, Albumin 3.4 L, Globulin 3.0, Albumin/Globulin Ratio 1.1, HCV Ab MACK w/Rflx PCR Qn Reactive, HIV Ag/Ab Combo Qual Negative 07/28/25 14:43 07/28/25 14:43 Orders (Tests/Meds): ED MEDICATIONS Generic Name Dose Route Start Last Admin Trade Name Freq PRN Reason Stop Dose Admin Acetaminophen 650 mg 07/28/25 17:48 Acetaminophen 325mg Tab PO 08/27/25 17:47 Q4HP PRN Fever or Mild Pain (1-3) Ascorbic Acid 500 mg 07/29/25 09:00 Ascorbic Acid 500mg Tab PO 08/28/25 08:59 DAILY LINDA Atorvastatin Calcium 40 mg 07/28/25 21:00 07/28/25 20:35 Atorvastatin 40mg Tablet PO 08/27/25 20:59 40 mg HS LINDA Administration Benzonatate 200 mg 07/28/25 18:52 Benzonatate 100mg Capsule PO 08/27/25 20:59 TID PRN cough Buspirone HCl 5 mg 07/28/25 21:00 07/28/25 20:35 Buspirone Hcl 5 Mg Tablet PO 08/27/25 20:59 5 mg TID LINDA Administration Docusate Sodium 100 mg 07/28/25 21:00 07/28/25 20:35 Docusate Sodium 100 Mg Capsule PO 08/27/25 20:59 100 mg BID LINDA Administration Duloxetine HCl 60 mg 07/29/25 09:00 Duloxetine 30mg Capsule.Dr PO 08/28/25 08:59 DAILY LINDA Enoxaparin Sodium 75 mg 07/29/25 09:00 Enoxaparin 100mg/Ml Syringe 1 mg/kg (75 mg) 08/28/25 08:59 SUBCUT Q12H LINDA Furosemide 60 mg 07/29/25 09:00 Furosemide 40mg/4ml Vial IV 08/28/25 08:59 BIDL LINDA Melatonin 5 mg 07/28/25 21:00 07/28/25 20:35 Melatonin 5mg Tablet PO 08/27/25 20:59 5 mg HS LINDA Administration Metoprolol Tartrate 25 mg 07/28/25 21:00 07/28/25 20:35 Metoprolol Tartrate 25mg Tablet PO 08/27/25 20:59 25 mg BID LINDA Administration Non-Formulary Medication 324 mg 07/29/25 09:00 Ferrous Sulfate PO 08/28/25 08:59 DAILY LINDA Ondansetron HCl 4 mg 07/28/25 17:48 Ondansetron 4mg/2ml Vial IV 08/27/25 17:47 Q6HP PRN Nausea Oxycodone HCl 5 mg 07/28/25 18:42 Oxycodone 5mg Immediate Release Tablet PO 08/27/25 18:41 Q8HP PRN Moderate to Severe Pain (4-10) Pantoprazole Sodium 40 mg 07/28/25 21:00 07/28/25 20:35 Pantoprazole 40mg Tablet PO 08/27/25 20:59 40 mg BID LINDA Administration Polyethylene Glycol 17 gm 07/28/25 18:42 Polyethylene Glycol 3350 238gm Powder PO 08/27/25 18:41 DAILY PRN Constipation Prednisone 10 mg 07/29/25 09:00 Prednisone 10mg Tab PO 08/28/25 08:59 DAILY LINDA Risperidone 1 mg 07/29/25 09:00 Risperidone 1mg Tablet PO 08/28/25 08:59 DAILY LINDA Tamsulosin HCl 0.4 mg 07/29/25 09:00 Tamsulosin 0.4mg Capsule PO 08/28/25 08:59 DAILY LINDA Discontinued Medications Generic Name Dose Route Start Last Admin Trade Name Freq PRN Reason Stop Dose Admin Furosemide 60 mg 07/28/25 17:48 07/28/25 18:05 Furosemide 40mg/4ml Vial IV 07/28/25 17:49 60 mg ONCE ONE Administration Iopamidol 80 ml 07/28/25 15:25 07/28/25 15:26 Iopamidol-370 (76%);100ml Bottle IV 07/28/25 15:26 80 ml ONCE ONE Administration Ondansetron HCl 4 mg 07/28/25 14:52 07/28/25 14:58 Ondansetron 4mg/2ml Vial IV 07/28/25 14:53 4 mg ONCE ONE Administration Sodium Chloride 10 ml 07/28/25 15:25 07/28/25 15:26 Sodium Chloride 0.9% 10ml Syr (Rad Only) IV 08/27/25 15:24 10 ml NEEDED PRN Administration Maintain IV Site Sodium Chloride 50 ml 07/28/25 15:25 07/28/25 15:26 0.9 % Sodium Chloride 50 Ml Vial IV 07/28/25 15:26 50 ml ONCE ONE Administration ORDERS Category Date Time Status CT angio chest PE protocol Stat Cat Scan 07/28/25 14:13 Completed POCUS Point of Care (ER Only) Stat Exams 07/28/25 14:10 Completed Portable CXR [XR chest portable] Stat Exams 07/28/25 14:02 Completed BNP [NT Pro Brain Natriuretic Pep.] Stat Lab 07/28/25 14:43 Completed CBC w/Auto Diff [Complete Blood Count Auto Diff] Stat Lab 07/28/25 14:43 Completed CMP [Comprehensive Metabolic Panel] Stat Lab 07/28/25 14:43 Completed D-Dimer Stat Lab 07/28/25 14:43 Completed HCV RNA PCR, Quant Stat Lab 07/28/25 14:43 Received HIV Combo Stat Lab 07/28/25 14:43 Completed Hepatitis C Ab Qual. W/ RFX Stat Lab 07/28/25 14:43 Completed Trop I [Troponin I] Stat Lab 07/28/25 14:43 Completed Troponin I Q3H Lab 07/28/25 17:21 Completed Troponin I Q3H Lab 07/28/25 20:12 Completed VBG [Venous Blood Gas] Stat RT 07/28/25 14:28 Completed Medical Decision Narrative: In summary patient is an 69-year-old male who presents to the emergency department from long-term for evaluation of shortness of breath for 3 days with recent discharge from hospital for worsening of COPD with consolidation and pericardial effusion. Patient is hemodynamically stable upon arrival, afebrile. Differential diagnosis includes worsening pericardial effusion, cardiac tamponade, pulmonary effusion, pulmonary edema, pneumonia. Initial workup will be conducted with hematologic labs, PE CT, POCUS, CXR. Initial interventions include Zofran for nausea. Initial workup reviewed by me, hematologic labs are unremarkable for acidosis, infection, chronic anemia is at baseline, CXR similar to previous without significant worsening. Dr. Fernandez and I performed a POC ultrasound which showed a moderate pericardial effusion and consolidation of the right lung, otherwise was unremarkable. EKG showed tachycardia with regular rhythm, artifact from moving during exam. PE CT was discussed with Dr. Valdez, who agreed there is increasing pulmonary effusion with consolidation, with pericardial effusion present. He also states that patient was able to be weaned to 1L of O@ at previous admission, so new finding of oxygen need of 4L shows significant worsening and is basis for admission to hospitalist service for fluid optimization and re-evaluation with possible bronchoscopy while inpatient. The case was discussed with hospital medicine regarding management to admit the patient their service for continued valuation at this time, which was agreed with, patient was transferred to inpatient unit in stable condition. <Josi Fernandez MD - Last Filed: 07/28/25 14:40> Vital Signs: 07/28/25 13:59 07/28/25 14:00 07/28/25 14:10 Temperature 98.6 F Temperature Source Oral Pulse Rate 106 H 104 H Pulse Rate [Right Radial] 108 H Respiratory Rate 16 19 22 Blood Pressure 127/78 137/84 Blood Pressure [Right Arm] 132/81 Blood Pressure Mean [Right Arm] 98 Blood Pressure Source Blood Pressure Source [Right Arm] Automatic Cuff Blood Pressure Position Blood Pressure Position [Right Arm] Supine 02 Sat by Pulse Oximetry 98 99 99 Oxygen Delivery Method Nasal Cannula Oxygen Flow Rate (LPM) 4 07/28/25 14:30 07/28/25 15:00 07/28/25 15:31 Temperature Temperature Source Pulse Rate 112 H 100 H 97 H Pulse Rate [Right Radial] Respiratory Rate 16 19 20 Blood Pressure 123/75 Blood Pressure [Right Arm] Blood Pressure Mean [Right Arm] Blood Pressure Source Blood Pressure Source [Right Arm] Blood Pressure Position Blood Pressure Position [Right Arm] 02 Sat by Pulse Oximetry 98 100 100 Oxygen Delivery Method Nasal Cannula Oxygen Flow Rate (LPM) 4 07/28/25 16:00 07/28/25 16:21 Temperature 98.4 F Temperature Source Oral Pulse Rate 94 H 94 H Pulse Rate [Right Radial] Respiratory Rate 16 17 Blood Pressure 129/78 129/78 Blood Pressure [Right Arm] Blood Pressure Mean [Right Arm] Blood Pressure Source Automatic Cuff Blood Pressure Source [Right Arm] Blood Pressure Position Supine Blood Pressure Position [Right Arm] 02 Sat by Pulse Oximetry 100 Oxygen Delivery Method Nasal Cannula Nasal Cannula Oxygen Flow Rate (LPM) 4 4 Lab Data Lab Results 07/28/25 14:28: VBG pH 7.31, VBG pCO2 71.1 H, VBG pO2 38.7, VBG HCO3 35.0 H, VBG Total CO2 37.2 H, VBG O2 Saturation 64.3, VBG Base Excess 8.7 H, VBG Lactic Acid 3.1 H 07/28/25 14:43: WBC 8.7, RBC 3.24 L, Hgb 8.5 L, Hct 29.6 L, MCV 91.4, MCH 26.2 L , MCHC 28.7 L, RDW 15.7, Plt Count 207, MPV 10.3, Neut % (Auto) 91.5 H, Lymph % (Auto) 2.9 L, White % (Auto) 5.2, Eos % (Auto) 0.0 L, Baso % (Auto) 0.2, Neut # (Auto) 8.0 H, Lymph # (Auto) 0.3 L, White # (Auto) 0.5, Eos # (Auto) 0.0, Baso # (Auto) 0.0, Total Counted 100, Neutrophils % (Manual) 90 H, Lymphocytes % (Manual) 4 L, Monocytes % (Manual) 6, Platelet Estimate Normal, RBC Morphology Normal, D-Dimer 2.07 H, Sodium 134 L, Potassium 3.9, Chloride 94 L, Carbon Dioxide 36 H, Anion Gap 7.9, BUN 13, Creatinine 0.70, Estimated Creat Clear 95, Estimated GFR 112, Est GFR ( Amer) 136, Glucose 200 H, Calcium 8.6, Total Bilirubin 0.5, AST 19, ALT 18, Alkaline Phosphatase 80, Troponin I < 0.01, N T-Pro-B Natriuret Pep 494 H, Total Protein 6.4, Albumin 3.4 L, Globulin 3.0, Albumin/Globulin Ratio 1.1, HCV Ab MACK w/Rflx PCR Qn Reactive, HIV Ag/Ab Combo Qual Negative Orders (Tests/Meds): ED MEDICATIONS Generic Name Dose Route Start Last Admin Trade Name Freq PRN Reason Stop Dose Admin Acetaminophen 650 mg 07/28/25 17:48 Acetaminophen 325mg Tab PO 08/27/25 17:47 Q4HP PRN Fever or Mild Pain (1-3) Ascorbic Acid 500 mg 07/29/25 09:00 Ascorbic Acid 500mg Tab PO 08/28/25 08:59 DAILY LINDA Atorvastatin Calcium 40 mg 07/28/25 21:00 07/28/25 20:35 Atorvastatin 40mg Tablet PO 08/27/25 20:59 40 mg HS LINDA Administration Benzonatate 200 mg 07/28/25 18:52 Benzonatate 100mg Capsule PO 08/27/25 20:59 TID PRN cough Buspirone HCl 5 mg 07/28/25 21:00 07/28/25 20:35 Buspirone Hcl 5 Mg Tablet PO 08/27/25 20:59 5 mg TID LINDA Administration Docusate Sodium 100 mg 07/28/25 21:00 07/28/25 20:35 Docusate Sodium 100 Mg Capsule PO 08/27/25 20:59 100 mg BID LINDA Administration Duloxetine HCl 60 mg 07/29/25 09:00 Duloxetine 30mg Capsule. PO 08/28/25 08:59 DAILY LINDA Enoxaparin Sodium 75 mg 07/29/25 09:00 Enoxaparin 100mg/Ml Syringe 1 mg/kg (75 mg) 08/28/25 08:59 SUBCUT Q12H LINDA Furosemide 60 mg 07/29/25 09:00 Furosemide 40mg/4ml Vial IV 08/28/25 08:59 BIDL LINDA Melatonin 5 mg 07/28/25 21:00 07/28/25 20:35 Melatonin 5mg Tablet PO 08/27/25 20:59 5 mg HS LINDA Administration Metoprolol Tartrate 25 mg 07/28/25 21:00 07/28/25 20:35 Metoprolol Tartrate 25mg Tablet PO 01/05/26 20:59 25 mg BID LINDA Administration Non-Formulary Medication 324 mg 07/29/25 09:00 Ferrous Sulfate PO 08/28/25 08:59 DAILY LINDA Ondansetron HCl 4 mg 07/28/25 17:48 Ondansetron 4mg/2ml Vial IV 08/27/25 17:47 Q6HP PRN Nausea Oxycodone HCl 5 mg 07/28/25 18:42 Oxycodone 5mg Immediate Release Tablet PO 08/27/25 18:41 Q8HP PRN Moderate to Severe Pain (4-10) Pantoprazole Sodium 40 mg 07/28/25 21:00 07/28/25 20:35 Pantoprazole 40mg Tablet PO 08/27/25 20:59 40 mg BID LINDA Administration Polyethylene Glycol 17 gm 07/28/25 18:42 Polyethylene Glycol 3350 238gm Powder PO 08/27/25 18:41 DAILY PRN Constipation Prednisone 10 mg 07/29/25 09:00 Prednisone 10mg Tab PO 08/28/25 08:59 DAILY LINDA Risperidone 1 mg 07/29/25 09:00 Risperidone 1mg Tablet PO 08/28/25 08:59 DAILY LINDA Tamsulosin HCl 0.4 mg 07/29/25 09:00 Tamsulosin 0.4mg Capsule PO 08/28/25 08:59 DAILY LINDA Discontinued Medications Generic Name Dose Route Start Last Admin Trade Name Freq PRN Reason Stop Dose Admin Furosemide 60 mg 07/28/25 17:48 07/28/25 18:05 Furosemide 40mg/4ml Vial IV 07/28/25 17:49 60 mg ONCE ONE Administration Iopamidol 80 ml 07/28/25 15:25 07/28/25 15:26 Iopamidol-370 (76%);100ml Bottle IV 07/28/25 15:26 80 ml ONCE ONE Administration Ondansetron HCl 4 mg 07/28/25 14:52 07/28/25 14:58 Ondansetron 4mg/2ml Vial IV 07/28/25 14:53 4 mg ONCE ONE Administration Sodium Chloride 10 ml 07/28/25 15:25 07/28/25 15:26 Sodium Chloride 0.9% 10ml Syr (Rad Only) IV 08/27/25 15:24 10 ml NEEDED PRN Administration Maintain IV Site Sodium Chloride 50 ml 07/28/25 15:25 07/28/25 15:26 0.9 % Sodium Chloride 50 Ml Vial IV 07/28/25 15:26 50 ml ONCE ONE Administration ORDERS Category Date Time Status CT angio chest PE protocol Stat Cat Scan 07/28/25 14:13 Completed POCUS Point of Care (ER Only) Stat Exams 07/28/25 14:10 Completed Portable CXR [XR chest portable] Stat Exams 07/28/25 14:02 Completed BNP [NT Pro Brain Natriuretic Pep.] Stat Lab 07/28/25 14:43 Completed CBC w/Auto Diff [Complete Blood Count Auto Diff] Stat Lab 07/28/25 14:43 Completed CMP [Comprehensive Metabolic Panel] Stat Lab 07/28/25 14:43 Completed D-Dimer Stat Lab 07/28/25 14:43 Completed HCV RNA PCR, Quant Stat Lab 07/28/25 14:43 Received HIV Combo Stat Lab 07/28/25 14:43 Completed Hepatitis C Ab Qual. W/ RFX Stat Lab 07/28/25 14:43 Completed Trop I [Troponin I] Stat Lab 07/28/25 14:43 Completed Troponin I Q3H Lab 07/28/25 17:21 Completed Troponin I Q3H Lab 07/28/25 20:12 Completed VBG [Venous Blood Gas] Stat RT 07/28/25 14:28 Completed <Meliton Camejo MD - Last Filed: 07/28/25 16:11> Vital Signs: 07/28/25 13:59 07/28/25 14:00 07/28/25 14:10 Temperature 98.6 F Temperature Source Oral Pulse Rate 106 H 104 H Pulse Rate [Right Radial] 108 H Respiratory Rate 16 19 22 Blood Pressure 127/78 137/84 Blood Pressure [Right Arm] 132/81 Blood Pressure Mean [Right Arm] 98 Blood Pressure Source Blood Pressure Source [Right Arm] Automatic Cuff Blood Pressure Position Blood Pressure Position [Right Arm] Supine 02 Sat by Pulse Oximetry 98 99 99 Oxygen Delivery Method Nasal Cannula Oxygen Flow Rate (LPM) 4 07/28/25 14:30 07/28/25 15:00 07/28/25 15:31 Temperature Temperature Source Pulse Rate 112 H 100 H 97 H Pulse Rate [Right Radial] Respiratory Rate 16 19 20 Blood Pressure 123/75 Blood Pressure [Right Arm] Blood Pressure Mean [Right Arm] Blood Pressure Source Blood Pressure Source [Right Arm] Blood Pressure Position Blood Pressure Position [Right Arm] 02 Sat by Pulse Oximetry 98 100 100 Oxygen Delivery Method Nasal Cannula Oxygen Flow Rate (LPM) 4 07/28/25 16:00 07/28/25 16:21 Temperature 98.4 F Temperature Source Oral Pulse Rate 94 H 94 H Pulse Rate [Right Radial] Respiratory Rate 16 17 Blood Pressure 129/78 129/78 Blood Pressure [Right Arm] Blood Pressure Mean [Right Arm] Blood Pressure Source Automatic Cuff Blood Pressure Source [Right Arm] Blood Pressure Position Supine Blood Pressure Position [Right Arm] 02 Sat by Pulse Oximetry 100 Oxygen Delivery Method Nasal Cannula Nasal Cannula Oxygen Flow Rate (LPM) 4 4 Lab Data Lab Results 07/28/25 14:28: VBG pH 7.31, VBG pCO2 71.1 H, VBG pO2 38.7, VBG HCO3 35.0 H, VBG Total CO2 37.2 H, VBG O2 Saturation 64.3, VBG Base Excess 8.7 H, VBG Lactic Acid 3.1 H 07/28/25 14:43: WBC 8.7, RBC 3.24 L, Hgb 8.5 L, Hct 29.6 L, MCV 91.4, MCH 26.2 L , MCHC 28.7 L, RDW 15.7, Plt Count 207, MPV 10.3, Neut % (Auto) 91.5 H, Lymph % (Auto) 2.9 L, White % (Auto) 5.2, Eos % (Auto) 0.0 L, Baso % (Auto) 0.2, Neut # (Auto) 8.0 H, Lymph # (Auto) 0.3 L, White # (Auto) 0.5, Eos # (Auto) 0.0, Baso # (Auto) 0.0, Total Counted 100, Neutrophils % (Manual) 90 H, Lymphocytes % (Manual) 4 L, Monocytes % (Manual) 6, Platelet Estimate Normal, RBC Morphology Normal, D-Dimer 2.07 H, Sodium 134 L, Potassium 3.9, Chloride 94 L, Carbon Dioxide 36 H, Anion Gap 7.9, BUN 13, Creatinine 0.70, Estimated Creat Clear 95, Estimated GFR 112, Est GFR ( Amer) 136, Glucose 200 H, Calcium 8.6, Total Bilirubin 0.5, AST 19, ALT 18, Alkaline Phosphatase 80, Troponin I < 0.01, N T-Pro-B Natriuret Pep 494 H, Total Protein 6.4, Albumin 3.4 L, Globulin 3.0, Albumin/Globulin Ratio 1.1, HCV Ab MACK w/Rflx PCR Qn Reactive, HIV Ag/Ab Combo Qual Negative Orders (Tests/Meds): ED MEDICATIONS Generic Name Dose Route Start Last Admin Trade Name Freq PRN Reason Stop Dose Admin Acetaminophen 650 mg 07/28/25 17:48 Acetaminophen 325mg Tab PO 08/27/25 17:47 Q4HP PRN Fever or Mild Pain (1-3) Ascorbic Acid 500 mg 07/29/25 09:00 Ascorbic Acid 500mg Tab PO 08/28/25 08:59 DAILY LINDA Atorvastatin Calcium 40 mg 07/28/25 21:00 07/28/25 20:35 Atorvastatin 40mg Tablet PO 08/27/25 20:59 40 mg HS LINDA Administration Benzonatate 200 mg 07/28/25 18:52 Benzonatate 100mg Capsule PO 08/27/25 20:59 TID PRN cough Buspirone HCl 5 mg 07/28/25 21:00 07/28/25 20:35 Buspirone Hcl 5 Mg Tablet PO 08/27/25 20:59 5 mg TID LINDA Administration Docusate Sodium 100 mg 07/28/25 21:00 07/28/25 20:35 Docusate Sodium 100 Mg Capsule PO 08/27/25 20:59 100 mg BID LINDA Administration Duloxetine HCl 60 mg 07/29/25 09:00 Duloxetine 30mg Capsule. PO 08/28/25 08:59 DAILY LINDA Enoxaparin Sodium 75 mg 07/29/25 09:00 Enoxaparin 100mg/Ml Syringe 1 mg/kg (75 mg) 08/28/25 08:59 SUBCUT Q12H LINDA Furosemide 60 mg 07/29/25 09:00 Furosemide 40mg/4ml Vial IV 08/28/25 08:59 BIDL LINDA Melatonin 5 mg 07/28/25 21:00 07/28/25 20:35 Melatonin 5mg Tablet PO 08/27/25 20:59 5 mg HS LINDA Administration Metoprolol Tartrate 25 mg 07/28/25 21:00 07/28/25 20:35 Metoprolol Tartrate 25mg Tablet PO 08/27/25 20:59 25 mg BID LINDA Administration Non-Formulary Medication 324 mg 07/29/25 09:00 Ferrous Sulfate PO 08/28/25 08:59 DAILY LINDA Ondansetron HCl 4 mg 07/28/25 17:48 Ondansetron 4mg/2ml Vial IV 08/27/25 17:47 Q6HP PRN Nausea Oxycodone HCl 5 mg 07/28/25 18:42 Oxycodone 5mg Immediate Release Tablet PO 08/27/25 18:41 Q8HP PRN Moderate to Severe Pain (4-10) Pantoprazole Sodium 40 mg 07/28/25 21:00 07/28/25 20:35 Pantoprazole 40mg Tablet PO 08/27/25 20:59 40 mg BID LINDA Administration Polyethylene Glycol 17 gm 07/28/25 18:42 Polyethylene Glycol 3350 238gm Powder PO 08/27/25 18:41 DAILY PRN Constipation Prednisone 10 mg 07/29/25 09:00 Prednisone 10mg Tab PO 08/28/25 08:59 DAILY LINDA Risperidone 1 mg 07/29/25 09:00 Risperidone 1mg Tablet PO 08/28/25 08:59 DAILY LINDA Tamsulosin HCl 0.4 mg 07/29/25 09:00 Tamsulosin 0.4mg Capsule PO 08/28/25 08:59 DAILY LINDA Discontinued Medications Generic Name Dose Route Start Last Admin Trade Name Freq PRN Reason Stop Dose Admin Furosemide 60 mg 07/28/25 17:48 07/28/25 18:05 Furosemide 40mg/4ml Vial IV 07/28/25 17:49 60 mg ONCE ONE Administration Iopamidol 80 ml 07/28/25 15:25 07/28/25 15:26 Iopamidol-370 (76%);100ml Bottle IV 07/28/25 15:26 80 ml ONCE ONE Administration Ondansetron HCl 4 mg 07/28/25 14:52 07/28/25 14:58 Ondansetron 4mg/2ml Vial IV 07/28/25 14:53 4 mg ONCE ONE Administration Sodium Chloride 10 ml 07/28/25 15:25 07/28/25 15:26 Sodium Chloride 0.9% 10ml Syr (Rad Only) IV 08/27/25 15:24 10 ml NEEDED PRN Administration Maintain IV Site Sodium Chloride 50 ml 07/28/25 15:25 07/28/25 15:26 0.9 % Sodium Chloride 50 Ml Vial IV 07/28/25 15:26 50 ml ONCE ONE Administration ORDERS Category Date Time Status CT angio chest PE protocol Stat Cat Scan 07/28/25 14:13 Completed POCUS Point of Care (ER Only) Stat Exams 07/28/25 14:10 Completed Portable CXR [XR chest portable] Stat Exams 07/28/25 14:02 Completed BNP [NT Pro Brain Natriuretic Pep.] Stat Lab 07/28/25 14:43 Completed CBC w/Auto Diff [Complete Blood Count Auto Diff] Stat Lab 07/28/25 14:43 Completed CMP [Comprehensive Metabolic Panel] Stat Lab 07/28/25 14:43 Completed D-Dimer Stat Lab 07/28/25 14:43 Completed HCV RNA PCR, Quant Stat Lab 07/28/25 14:43 Received HIV Combo Stat Lab 07/28/25 14:43 Completed Hepatitis C Ab Qual. W/ RFX Stat Lab 07/28/25 14:43 Completed Trop I [Troponin I] Stat Lab 07/28/25 14:43 Completed Troponin I Q3H Lab 07/28/25 17:21 Completed Troponin I Q3H Lab 07/28/25 20:12 Completed VBG [Venous Blood Gas] Stat RT 07/28/25 14:28 Completed Medical Decision Narrative: In summary patient is an 69-year-old male who presents to the emergency department from long-term for evaluation of shortness of breath for 3 days with recent discharge from hospital for worsening of COPD with consolidation and pericardial effusion. Patient is hemodynamically stable upon arrival, afebrile. Differential diagnosis includes worsening pericardial effusion, cardiac tamponade, pulmonary effusion, pulmonary edema, pneumonia. Initial workup will be conducted with hematologic labs, PE CT, POCUS, CXR. Initial interventions include Zofran for nausea. Initial workup reviewed by me, hematologic labs are unremarkable for acidosis, infection, chronic anemia is at baseline, CXR similar to previous without significant worsening. Dr. Fernandez and I performed a POC ultrasound which showed a moderate pericardial effusion and consolidation of the right lung, otherwise was unremarkable. EKG showed tachycardia with regular rhythm, artifact from moving during exam. PE CT was discussed with Dr. Valdez, who agreed there is increasing pulmonary effusion with consolidation, with pericardial effusion present. He also states that patient was able to be weaned to 1L of O@ at previous admission, so new finding of oxygen need of 4L shows significant worsening and is basis for admission to hospitalist service for fluid optimization and re-evaluation with possible bronchoscopy while inpatient. The case was discussed with hospital medicine regarding management to admit the patient their service for continued valuation at this time, which was agreed with, patient was transferred to inpatient unit in stable condition. Meliton Camejo MD: I was consulted by the POLLY, and we discussed the complexity of the problems being addressed. I approve the treatment and management plan for this patient's care in the emergency department, thus performing a substantive portion of the medical decision making. Procedures <Josi Fernandez MD - Last Filed: 07/28/25 14:40> Miscellaneous Procedure Procedure Performed: Limited cardiac ultrasound Indication: Dyspnea Identified structures: The heart was visualized in the parasternal long axis, parastenal short axis, apical four chamber and subxyphiod views. The IVC was visualized in the short axis and long axis at its entry into the right atrium. Findings: RV mildly dilated no severe left ventricular dysfunction there is a small pericardial effusion no evidence of tamponade IVC is less than 2 cm with normal respirophasic variation Impression: Unremarkable emergency ultrasound of the heart other than small pericardial effusion Images [were saved/were not saved] to permanent archive The study [was/was not] technically adequate CPT: 09222-16 This study was performed by [facility], and I personally interpreted all images/videos. Based on my clinical judgement, these images were [adequate/inadequate] and [did/did not] necessitate further imaging. Limited lung ultrasound A focused ultrasound exam of the pleural spaces was performed to evaluate for pneumothorax, pulmonary edema, pleural effusion and/or consolidation. The ultrasound was performed with the following indications, as noted in the H&P: Dyspnea Identified structures: Right and left thoracic cavities were examined. Findings: Lung sliding present throughout there is a moderate to large pleural effusion on the right with lung consolidation within the pleural effusion otherwise no significant pulmonary edema or abnormalities on the left Impression: Moderate right-sided pleural effusion with lung consolidation on the right lung Images were to permanent archive The study was technically adequate CPT 51979-61 This study was performed by [facility], and I personally interpreted all images/videos. Based on my clinical judgement, these images were adequate and did not necessitate further imaging. Ultrasound-guided IV Indication difficult IV access Patient was placed in the supine position was prepped and draped in sterile fashion. 20-gauge 48 mm Angiocath was used with axial and long axis planes on the ultrasound under direct visual guidance. The tip of the needle was observed being inserted directly into the vein itself and catheter was advanced under direct guidance. No significant complications. Critical Care <MARIVEL Martinez - Last Filed: 07/28/25 16:09> Critical Care Time Critical Care Time: No
--- NOTE | 2025-07-28 14:13 | CT_ITS ---
PROCEDURE INFORMATION: Exam: CTA Chest Without And With Contrast Exam date and time: 07/28/2025 3:19 PM Age: 69 years old Clinical indication: Shortness of breath; Additional info: SOB TECHNIQUE: Imaging protocol: Computed tomographic angiography of the chest without and with contrast. Exam focused on the arteries. 3D rendering (Not supervised by radiologist): MIP and/or 3D reconstructed images were created by the technologist. Radiation optimization: All CT scans at this facility use at least one of these dose optimization techniques: automated exposure control; mA and/or kV adjustment per patient size (includes targeted exams where dose is matched to clinical indication); or iterative reconstruction. Contrast material: ISOVUE; Contrast volume: 80 ml; Contrast route: INTRAVENOUS (IV); COMPARISON: CT ANGIO CHEST PE PROTOCOL 06/30/2025 10:08 PM FINDINGS: Pulmonary arteries: No evidence of filling defects to suggest pulmonary emboli. Aorta: Aorta is nonaneurysmal. Other arteries: Hyperattenuating material in the coronary tree likely a combination of vascular stents and atherosclerosis. Lungs: There is a right lower lobe opacity favored combination of pneumonia and atelectasis. Tree-in-bud opacities in the periphery of left lower lobe in keeping with bronchiolitis. Pleural spaces: Large right pleural effusion. Heart: Unremarkable. No cardiomegaly. No pericardial effusion. Heart RV/LV ratio: The RV/LV ratio is less than 1. Lymph nodes: Unremarkable. No enlarged lymph nodes. Gallbladder and biliary ducts: There has been a cholecystectomy. Bones/joints: No acute osseous abnormality. Soft tissues: Unremarkable. IMPRESSION: 1. There is a right lower lobe opacity favored combination of pneumonia and atelectasis. Tree-in-bud opacities in the periphery of left lower lobe in keeping with bronchiolitis. 2. No evidence of filling defects to suggest pulmonary emboli.
--- NOTE | 2025-07-28 14:30 | ECG_ITS ---
APPROVED REPORT Exam: Resting ECG HR:109 bpm ECG Measurements Heart Rate 109 AXES MN 143 P 34 QRSd 88 QRS -38 QT 324 T 47 QTc 388 Conclusion SINUS TACHYCARDIA WITH OCCASIONAL ECTOPIC PREMATURE COMPLEXES LEFT AXIS DEVIATION [QRS AXIS < -30] POSSIBLE SEPTAL MYOCARDIAL INFARCTION , PROBABLY OLD [30 ms Q WAVE IN V1/V2] ABNORMAL ECG UNCONFIRMED REPORT Electronically signed by : Harjinder Fernandez, 07/28/2025 14:56:25
--- NOTE | 2025-07-28 14:51 | PC.NURSE ---
patient hard stick, ems tried multiple times, this rn attempted, 2 other rns attempted
[2025-07-28 14:58] LABS: VBG HCO3 35.0 mmol/L (23-30); VBG PCO2 71.1 mmol/L (35-51); VBG PH 7.31 mmol/L (7.31-7.41); VBG PO2 38.7 mmol/L (28-40)
[2025-07-28] MEDS: ONDANSETRON 4MG/2ML VIAL 4 MG IV (14:58)
[2025-07-28 14:59] LABS: Hematocrit 29.6 % (42.0-52.0); Hemoglobin 8.5 g/dL (14.1-18.0); Immature Granulocytes % 0.2 %; Mean Corpuscular HGB Conc 28.7 g/dL (31.8-35.4); Mean Corpuscular Hemoglobin 26.2 pg (27.0-31.2); Mean Corpuscular Volume 91.4 fl (80-94); Nucleated Red Blood Cells % 0 %; Platelet Count 207 K/mm3 (142-424); Red Blood Count 3.24 M/mm3 (4.60-6.20); Red Cell Distribution Width-SD 53.5 fL; White Blood Count 8.7 K/mm3 (4.8-10.8)
[2025-07-28 14:59] LABS: Lactate Venous 3.1 mmol/L (0.4-2.0)
[2025-07-28 15:06] LABS: Alanine Aminotransferase 18 U/L (12-78); Albumin Level 3.4 g/dl (3.5-5.0); Albumin/Globulin Ratio 1.1 (1.1-1.8); Alkaline Phosphatase 80 U/L (38-126); Anion Gap 7.9 mEq/L (5-15); Aspartate Amino Transferase 19 U/L (17-59); Bilirubin,Total 0.5 mg/dl (0.2-1.3); Blood Urea Nitrogen 13 mg/dl (9-20); Calcium 8.6 mg/dl (8.4-10.2); Carbon Dioxide 36 mmol/L (22.0-30.0); Chloride 94 mmol/L (98-107); Creatinine Clearance Estimated 95 mL/min (50-200); Creatinine,Serum 0.70 mg/dl (0.66-1.25); Estimated Glomerular Filt Rate 112 ml/min (>60); GFR (African American) 136 ML/MIN (>60); Globulin 3.0 g/dL (1.3-3.2); Glucose 200 mg/dl (74-100); Potassium 3.9 mmoL/L (3.5-5.1); Sodium 134 mmol/L (136-145); Total Protein,Serum 6.4 g/dl (6.3-8.2)
[2025-07-28 15:11] LABS: D-Dimer 2.07 ug/mL (0.0-0.5)
[2025-07-28 15:20] LABS: NT Pro Brain Natriuretic Pep. 494 pg/mL (0-125)
[2025-07-28 15:23] LABS: Troponin I < 0.01 ng/ml (0.00-0.034)
[2025-07-28] MEDS: SODIUM CHLORIDE 0.9% 10ML SYR (RAD ONLY) 10 ML IV (15:26)
[2025-07-28] MEDS: 0.9 % SODIUM CHLORIDE 50 ML VIAL IV (15:26)
[2025-07-28] MEDS: IOPAMIDOL-370 (76%);100ML BOTTLE 80 ML IV (15:26)
--- NOTE | 2025-07-28 15:35 | PC.NURSE ---
Pulmonology paged for Padmini
[2025-07-28 15:42] LABS: RBC Morphology Normal; Total Cells Counted 100
--- NOTE | 2025-07-28 15:52 | PC.NURSE ---
Km ORTA speaking with
--- NOTE | 2025-07-28 15:58 | PC.NURSE ---
Km speaking with the hospitalist about admitting the pt. suggested admission for worsening pleural effusions.
--- NOTE | 2025-07-28 16:00 | PC.NURSE ---
HS notified of the need for a bed to admit the pt to the hospitalist.
[2025-07-28 16:13] LABS: Hepatitis C Ab Qual. W/ RFX REACTIVE (Negative)
--- NOTE | 2025-07-28 16:43 | PC.NURSE ---
arrived by stretcher from ED
--- NOTE | 2025-07-28 17:46 | EXP.HP ---
[facility] Disclaimer: The information contained in this section may have been updated after the patient was seen, as this information can be updated by other users. Medical History Pericardial effusion Shortness of Breath Pleural effusion on right Pleural effusion, left Acute and chronic respiratory failure with hypoxia Lung cancer Right lower lobe, completed radiation treatments at [facility] in July, Onychomycosis Cataracts, bilateral Alteration in physical mobility Abnormal gait Generalized muscle weakness Constipation Pleural effusion Heart failure HTN (hypertension) Depressive disorder Delirium Hyperlipemia Protein calorie malnutrition Malignant neoplasm Sepsis Insomnia Mood disorder Chronic iron deficiency anemia BPH (benign prostatic hyperplasia) A-fib Hypoxic respiratory failure COPD (chronic obstructive pulmonary disease) S/P radiation therapy Cancer of right lung CAD (coronary artery disease) Surgical History History of cholecystectomy Presence of coronary angioplasty implant and graft Social History Smoking Status: Former smoker tobacco type: cigarettes years smoked: 20 smoking status stop date: april 2024 how long ago did patient quit smokin year quit status: considering quitting alcohol intake: never current occupational status: retired Travel in the last 8 weeks?: None marital status: single number of children: 0 Have you lived/traveled outside [place] in past 30 days?: No Contact w/someone who lives/traveled outside US past 30 days?: No Exposure to someone with infectious disease in past 14 days?: No Do you have a fever (greater than 100.4 F or 38 C)?: No Have you tested positive for COVID-19?: No Exposed to someone with COVID-19 in past 14 days?: No Do you have a sore throat?: No Do you have a cough?: No Do you have any weakness?: No Do you have any diarrhea?: No Are you experiencing any unusual bleeding?: No Do you have any muscle aches/pain?: No Do you have any abdominal pain?: No Are you experiencing loss of taste or smell?: No Other Medical History Have you received the Flu Vaccine for this season: No Have you received the Pneumonia Vaccine: Yes Meds Home Medications and Allergies Home Medications ?Medication ?Instructions ?Recorded ?Confirmed ?Type albuterol sulfate 2.5 mg/0.5 mL 2.5 mg inhalation Q6HP PRN 06/11/25 07/28/25 History solution for nebulization Shortness Of Breath apixaban 5 mg tablet (Eliquis) 5 mg PO BID 06/11/25 07/24/25 History atorvastatin 40 mg tablet (Lipitor) 40 mg PO HS 06/11/25 07/24/25 History docusate sodium 100 mg capsule 100 mg PO BID 06/11/25 07/24/25 History duloxetine 60 mg capsule,delayed 60 mg PO DAILY 06/11/25 07/24/25 History release ferrous sulfate 324 mg (65 mg 324 mg PO DAILY 06/11/25 07/24/25 History iron) tablet,delayed release melatonin 3 mg capsule 6 mg PO HS 06/11/25 07/24/25 History metoprolol tartrate 25 mg tablet 25 mg PO BID 06/11/25 07/24/25 History pantoprazole 40 mg tablet,delayed 40 mg PO BID 06/11/25 07/24/25 History release (Protonix) prednisone 10 mg tablet 10 mg PO DAILY 06/11/25 07/24/25 History tamsulosin 0.4 mg capsule (Flomax) 0.4 mg PO DAILY 06/11/25 07/24/25 History tizanidine 4 mg capsule 4 mg PO TIDP PRN Muscle Spasm 06/11/25 07/24/25 History ascorbic acid (vitamin C) 500 mg 500 mg PO DAILY 07/01/25 07/24/25 History tablet buspirone 5 mg tablet 5 mg PO TID 07/01/25 07/24/25 History fluticasone fur. 200 mcg-umeclid 1 inh inhalation DAILY 07/01/25 07/24/25 History 62.5 mcg-vilant 25 mcg inhalat.powder (Trelegy Ellipta) oxycodone 5 mg tablet 5 mg PO Q8HP PRN Moderate Pain 07/01/25 07/24/25 History (Scale Score 5-6) risperidone 1 mg tablet 1 mg PO DAILY 07/01/25 07/24/25 History furosemide 40 mg tablet 40 mg PO DAILY 07/12/25 07/24/25 History iron sucrose 200 mg iron/10 mL 100 mg (5 mL) IV WEEKLY 4 doses 07/17/25 07/24/25 Rx intravenous solution (Venofer) polyethylene glycol 3350 17 17 g PO DAILY PRN constipation 07/24/25 07/24/25 Rx gram/dose oral powder (Miralax) #510 grams New Prescriptions to Start Prescriptions: Allergies Allergy/AdvReac Type Severity Reaction Status Date / Time diclofenac Allergy Unknown Unknown Verified 07/24/25 12:13 allergy reaction Exam Data for Last 24 hours Vital signs and Labs for Last 24 Hours: Temp Pulse Resp BP Pulse Ox O2 Del Method O2 Flow Rate 98.1 F 85 18 122/64 97 Nasal Cannula 4 07/28/25 17:07 07/28/25 17:07 07/28/25 17:07 07/28/25 17:07 07/28/25 17:07 07/28/25 17:07 07/28/25 17:07 Laboratory Results - last 24 hr 07/28/25 14:28: VBG pH 7.31, VBG pCO2 71.1 H, VBG pO2 38.7, VBG HCO3 35.0 H, VBG Total CO2 37.2 H, VBG O2 Saturation 64.3, VBG Base Excess 8.7 H, VBG Lactic Acid 3.1 H 07/28/25 14:43: WBC 8.7, RBC 3.24 L, Hgb 8.5 L, Hct 29.6 L, MCV 91.4, MCH 26.2 L, MCHC 28.7 L, RDW 15.7, Plt Count 207, MPV 10.3, Neut % (Auto) 91.5 H, Lymph % (Auto) 2.9 L, [place] % (Auto) 5.2, Eos % (Auto) 0.0 L, Baso % (Auto) 0.2, Neut # (Auto) 8.0 H, Lymph # (Auto) 0.3 L, [place] # (Auto) 0.5, Eos # (Auto) 0.0, Baso # (Auto) 0.0, Total Counted 100, Neutrophils % (Manual) 90 H, Lymphocytes % (Manual) 4 L, Monocytes % (Manual) 6, Platelet Estimate Normal, RBC Morphology Normal, D-Dimer 2.07 H, Sodium 134 L, Potassium 3.9, Chloride 94 L, Carbon Dioxide 36 H, Anion Gap 7.9, BUN 13, Creatinine 0.70, Estimated Creat Clear 95, Estimated GFR 112, Est GFR ( Amer) 136, Glucose 200 H, Calcium 8.6, Total Bilirubin 0.5, AST 19, ALT 18, Alkaline Phosphatase 80, Troponin I < 0.01, NT-Pro-B Natriuret Pep 494 H, Total Protein 6.4, Albumin 3.4 L, Globulin 3.0, Albumin/Globulin Ratio 1.1, HCV Ab MACK w/Rflx PCR Qn Reactive, HIV Ag/Ab Combo Qual Negative I & O for Last 24 hours: Intake & Output 07/25/25 07/26/25 07/27/25 07/28/25 23:59 23:59 23:59 23:59 Weight 75.75 kg
[2025-07-28] MEDS: FUROSEMIDE 40MG/4ML VIAL 60 MG IV (18:05)
[2025-07-28 18:22] LABS: Troponin I < 0.01 ng/ml (0.00-0.034)
--- NOTE | 2025-07-28 18:27 | PC.NURSE ---
pt new admit from ER this shift. Pt has been alert to self, place, and year. pleasantly confused at times since arriving to floor. vital signs stable tolerating baseline 4L NC. No c/o SOB. IV diuretics given per OCT. Pt resting comfortably supine in bed with no further needs voiced at this time. Call light within reach. bed alarm in place.
--- NOTE | 2025-07-28 18:46 | P.HP_ITS ---
<Statement entered by Jam Ledesma MD - 07/31/25 15:43> Agree with plan of care as outlined by the [employer] APPLICATION DEVELOPER. 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 Due to patient's symptoms, he presents emergency room via EMS. While in the emergency room, CTA of the chest revealed a right lower lobe opacity favor combination of pneumonia, tree-in-bud opacities in the periphery of the lower lobe keeping with bronchiolitis, and no evidence of filling defect to suggest pulmonary embolism. Patient did have right lower lobe pleural effusion his case was discussed with pulmonology who recommended to diurese patient. As a result, hospital medicine was consulted for further management. During my evaluation of patient, patient was somewhat confused. He did endorse having some shortness of air. Patient is currently denying any chest pain, lightheadedness, dizziness, fever, chills, rigors, nausea, dyspnea, diarrhea. Additional pertinent labs obtained including red blood cell count of 3.24, hemoglobin 8.5, hematocrit 29.6, neutrophils 91.5%, D-dimer 2.07, pCO2 of 71.1, bicarb 35, sodium 134, chloride 94, carbon oxide of 36, blood glucose of 200, BNP of 494, and albumin of 3.4. [facility] Disclaimer: The information contained in this section may have been updated after the patient was seen, as this information can be updated by other users. Medical History Pericardial effusion Shortness of Breath Pleural effusion on right Pleural effusion, left Acute and chronic respiratory failure with hypoxia Lung cancer Right lower lobe, completed radiation treatments at [facility] in July, Onychomycosis Cataracts, bilateral Alteration in physical mobility Abnormal gait Generalized muscle weakness Constipation Pleural effusion Heart failure HTN (hypertension) Depressive disorder Delirium Hyperlipemia Protein calorie malnutrition Malignant neoplasm Sepsis Insomnia Mood disorder Chronic iron deficiency anemia BPH (benign prostatic hyperplasia) A-fib Hypoxic respiratory failure COPD (chronic obstructive pulmonary disease) S/P radiation therapy Cancer of right lung CAD (coronary artery disease) Surgical History History of cholecystectomy Presence of coronary angioplasty implant and graft Social History Smoking Status: Former smoker tobacco type: cigarettes years smoked: 20 smoking status stop date: april 2024 how long ago did patient quit smokin year quit status: considering quitting alcohol intake: never current occupational status: retired Travel in the last 8 weeks?: None marital status: single number of children: 0 Have you lived/traveled outside US in past 30 days?: No Contact w/someone who lives/traveled outside US past 30 days?: No Exposure to someone with infectious disease in past 14 days?: No Do you have a fever (greater than 100.4 F or 38 C)?: No Have you tested positive for COVID-19?: No Exposed to someone with COVID-19 in past 14 days?: No Do you have a sore throat?: No Do you have a cough?: No Do you have any weakness?: No Do you have any diarrhea?: No Are you experiencing any unusual bleeding?: No Do you have any muscle aches/pain?: No Do you have any abdominal pain?: No Are you experiencing loss of taste or smell?: No Other Medical History Have you received the Flu Vaccine for this season: No Have you received the Pneumonia Vaccine: No Review of Systems Review of Systems Review of systems:: pertinent systems reviewed and negative unless documented below Constitutional Constitutional: Reports system reviewed and no additional complaints, except as documented Eyes Eyes: Reports system reviewed and no additional complaints, except as documented ENT Ears, Nose, Mouth, and Throat: Reports system reviewed and no additional complaints, except as documented *Cardiovascular Cardiovascular: Reports dyspnea *Respiratory Respiratory: Reports dyspnea *Gastrointestinal Gastrointestinal: Reports constipation *Genitourinary Genitourinary: Reports system reviewed and no additional complaints, except as documented *Musculoskeletal Musculoskeletal: Reports system reviewed and no additional complaints, except as documented Integumentary/Breasts Skin/Breast: Reports system reviewed and no additional complaints, except as documented *Neurologic Neurologic: Reports confusion Psychiatric Psychiatric: Reports confusion Endocrine Endocrine: Reports system reviewed and no additional complaints, except as documented Hematologic/Lymphatic Hematologic/Lymphatic: Reports system reviewed and no additional complaints, except as documented Allergic/Immunologic Allergic/Immunologic: Reports system reviewed and no additional complaints, except as documented Meds Home Medications and Allergies Home Medications ?Medication ?Instructions ?Recorded ?Confirmed ?Type albuterol sulfate 2.5 mg/0.5 mL 2.5 mg inhalation Q6HP PRN 06/11/25 07/28/25 History solution for nebulization Shortness Of Breath apixaban 5 mg tablet (Eliquis) 5 mg PO BID 06/11/25 History atorvastatin 40 mg tablet (Lipitor) 40 mg PO HS 07/28/25 History docusate sodium 100 mg capsule 100 mg PO BID 06/11/25 07/28/25 History duloxetine 60 mg capsule,delayed 60 mg PO DAILY 07/28/25 History release ferrous sulfate 324 mg (65 mg 324 mg PO DAILY 06/11/25 07/28/25 History iron) tablet,delayed release melatonin 3 mg capsule 6 mg PO HS 06/11/25 07/28/25 History metoprolol tartrate 25 mg tablet 25 mg PO BID 06/11/25 07/28/25 History pantoprazole 40 mg tablet,delayed 40 mg PO BID 5 07/28/25 History release (Protonix) prednisone 10 mg tablet 10 mg PO DAILY 06/11/2502/14 History tamsulosin 0.4 mg capsule (Flomax) 0.4 mg PO DAILY 07/28/25 History ascorbic acid (vitamin C) 500 mg 500 mg PO DAILY 07/0107/28/25 History tablet buspirone 5 mg tablet 5 mg PO TID 07/01/25 5 History fluticasone fur. 200 mcg-umeclid 1 inh inhalation LUIS Y 07/01/25 07/28/25 History 62.5 mcg-vilant 25 mcg inhalat.powder (Trelegy Ellipta) oxycodone 5 mg tablet 5 mg PO Q8HP PRN Moderate Pa in 07/01/25 07/28/25 History (Scale Score 5-6) risperidone 1 mg tablet 1 mg PO DAILY 07/01/2507/28 History furosemide 40 mg tablet 40 mg PO DAILY 07/12/25 12/0 02/14 History polyethylene glycol 3350 17 17 g PO DAILY PRN constipa tion 07/24/25 07/28/25 Rx gram/dose oral powder (Miralax) #510 grams New Prescriptions to Start Prescriptions: Allergies Allergy/AdvReac Type Severity Reaction Status Date / Time diclofenac Allergy Unknown Unknown Verified 07/24/25 12:13 allergy reaction Exam Data for Last 24 hours Vital signs and Labs for Last 24 Hours: Temp Pulse Resp BP Pulse Ox O2 Del Method O2 Flow Rate 98.1 F 85 18 122/64 97 Nasal Cannula 4 07/28/25 17:07 07/28/25 17:07 07/28/25 17:07 07/28/25 17:07 07/28/25 17:07 07/28/25 17:07 07/28/25 17:07 Laboratory Results - last 24 hr 07/28/25 14:28: VBG pH 7.31, VBG pCO2 71.1 H, VBG pO2 38.7, VBG HCO3 35.0 H, VBG Total CO2 37.2 H, VBG O2 Saturation 64.3, VBG Base Excess 8.7 H, VBG Lactic Acid 3.1 H 07/28/25 14:43: WBC 8.7, RBC 3.24 L, Hgb 8.5 L, Hct 29.6 L, MCV 91.4, MCH 26.2 L , MCHC 28.7 L, RDW 15.7, Plt Count 207, MPV 10.3, Neut % (Auto) 91.5 H, Lymph % (Auto) 2.9 L, Canadian % (Auto) 5.2, Eos % (Auto) 0.0 L, Baso % (Auto) 0.2, Neut # (Auto) 8.0 H, Lymph # (Auto) 0.3 L, Canadian # (Auto) 0.5, Eos # (Auto) 0.0, Baso # (Auto) 0.0, Total Counted 100, Neutrophils % (Manual) 90 H, Lymphocytes % (Manual) 4 L, Monocytes % (Manual) 6, Platelet Estimate Normal, RBC Morphology Normal, D-Dimer 2.07 H, Sodium 134 L, Potassium 3.9, Chloride 94 L, Carbon Dioxide 36 H, Anion Gap 7.9, BUN 13, Creatinine 0.70, Estimated Creat Clear 95, Estimated GFR 112, Est GFR ( Amer) 136, Glucose 200 H, Calcium 8.6, Total Bilirubin 0.5, AST 19, ALT 18, Alkaline Phosphatase 80, Troponin I < 0.01, NT-Pro-B Natriuret Pep 494 H, Total Protein 6.4, Albumin 3.4 L, Globulin 3.0, Albumin/Globulin Ratio 1.1, HCV Ab MACK w/Rflx PCR Qn Reactive, HIV Ag/Ab Combo Qual Negative 07/28/25 17:21: Troponin I < 0.01 I & O for Last 24 hours: Intake & Output 07/25/25 07/26/25 07/27/25 07/28/25 23:59 23:59 23:59 23:59 Weight 75.75 kg Constitutional Constitutional: no acute distress, thin and cooperative *Routine HEENT Exam Head: Present normocephalic and atraumatic Eye: Present EOMI, PERRL and normal accommodation ENT: Present mucous membranes moist *Routine Neck Exam Neck: Present supple, full ROM and trachea midline *Routine Respiratory Exam Respiratory: Present decreased breath sounds, wheezes, crackles, normal respiratory effort, able to speak in complete sentences and symmetric chest movement *Routine Cardiovascular Exam Cardiovascular: Present RRR, Normal S1 and Normal S2 *Routine Abdominal Exam Abdominal: Present soft and normoactive bowel sounds *Routine Rectal Exam Rectal:: deferred *Routine Genitalia Exam Genitalia:: deferred *Routine Extremities Exam Extremities: Present full ROM, pulses intact and normal capillary refill Routine Back/Spine/Pelvis Exam Back/Spine: Present full ROM *Routine Skin Exam Skin: Present intact, dry and warm *Routine Neurological Exam Neurological: Present alert, oriented X3, CN II-XII intact, altered mental status, moving all extremities and normal speech Comments: Patient can answer appropriately the orientation questions but he makes odd statements Routine Psychiatric Exam Psychiatric: Present normal affect, normal thought process and cooperative H&P: Result Impressions 69-year-old male who is well-known to our service line has a past medical history of adenocarcinoma/lung cancer status post radiation/chemotherapy presents with a worsening right pleural effusion. Pulmonology is recommending diuresis prior to any attempted thoracentesis. Assessment and Plan *Assessment and plan (1) Pleural effusion: Status: Acute Category: Medical Code(s): J90 - Pleural effusion, not elsewhere classified (2) Acute on chronic respiratory failure with hypoxia and hypercapnia: Status: Acute Category: Medical Code(s): J96.21 - Acute and chronic respiratory failure with hypoxia; J96.22 - Acute and chronic respiratory failure with hypercapnia (3) Iron deficiency anemia: Status: Acute Qualifiers: Iron deficiency anemia type: unspecified iron deficiency Qualified Code(s): D50.9 - Iron deficiency anemia, unspecified Category: Medical Code(s): D50.9 - Iron deficiency anemia, unspecified (4) Hyperglycemia: Status: Acute Category: Medical Code(s): R73.9 - Hyperglycemia, unspecified (5) Lactic acidosis: Status: Acute Category: Medical Code(s): E87.20 - Acidosis, unspecified (6) Elevated brain natriuretic peptide (BNP) level: Status: Acute Category: Medical Code(s): R79.89 - Other specified abnormal findings of blood chemistry Plan Assessment: Right pleural effusion Elevated BNP - We will follow recommendations of pulmonology and diurese patient - 60 mg of Lasix IV twice daily - Last 2D echo revealed an EF of 50% (performed 07/02/2025) - Patient is currently prescribed Eliquis for management of atrial fibrillation. I discussed with attending we will transition to Lovenox at therapeutic dosing in the event patient requires thoracentesis Acute on chronic hypoxic hypercapnic respiratory failure - Patient is compensated - He is maintaining his oxygen saturation on his home O2 of 4 L - Will consider nocturnal BiPAP Normocytic hypochromic anemia - Patient has no acute blood loss - This is most likely in the setting of iron deficiency anemia Hyperglycemia Immunocompromise - Patient is prescribed chronic steroid therapy of prednisone 10 mg daily - Will continue steroids daily Lactic acidosis - Most likely due to chronic hypoxemia History of adenocarcinoma - Status post radiation/chemotherapy currently in remission Plan: Admit patient to the Med[facility] unit Electrolyte replacement program Physical therapy Occupational Therapy Vital signs every 4 hours Case management Cardiac diet CBC/CMP daily Lipid panel in a.m. Magnesium in a.m. PT/INR 4 mg Zofran IV push every 6 hours as needed nausea vomiting Full code I have discussed this case with attending physician Dr. Ledesma and I look forward to more
[2025-07-28 19:00] LABS: Reflex Lactic Add Lactic Reflex
[2025-07-28 19:15] LABS: Lactic Acid Follow Up (RFLX 1) 2.1 mmol/L (0.7-2.1)
[2025-07-28] MEDS: PANTOPRAZOLE 40MG TABLET 40 MG PO (20:35)
[2025-07-28] MEDS: MELATONIN 5MG TABLET 5 MG PO (20:35)
[2025-07-28] MEDS: DOCUSATE SODIUM 100 MG CAPSULE PO (20:35)
[2025-07-28] MEDS: METOPROLOL TARTRATE 25MG TABLET 25 MG PO (20:35)
[2025-07-28] MEDS: ATORVASTATIN 40MG TABLET 40 MG PO (20:35)
[2025-07-28] MEDS: BUSPIRONE HCL 5 MG TABLET PO (20:35)
[2025-07-28 20:58] LABS: Troponin I < 0.01 ng/ml (0.00-0.034)
[2025-07-28 21:02] LABS: Reflex Lactic (2 hrs) Add Lactic Reflex
[2025-07-28 21:21] LABS: Lactic Acid Follow up (RFLX 2) 2.2 mmol/L (0.7-2.1)
[2025-07-29 03:29] VITALS: BP 107/59; PULSE 87; RESP 17; TEMP 36.8; O2SAT 94
[2025-07-29 03:31] VITALS: BMI 23.2
[2025-07-29 08:00] VITALS: BP 100/62; PULSE 96; RESP 12; TEMP 36.8; O2SAT 93
--- NOTE | 2025-07-29 08:15 | XR_ITS ---
PROCEDURE INFORMATION: Exam: XR Chest Exam date and time: 07/29/2025 8:38 AM Age: 69 years old Clinical indication: Screening exam; Other screening; Additional info: F/r right effusion TECHNIQUE: Imaging protocol: Radiologic exam of the chest. Views: 1 view. COMPARISON: CT ANGIO CHEST PE PROTOCOL 07/28/2025 3:19 PM FINDINGS: Lungs: Right basilar atelectasis. Pleural spaces: Moderate-sized right pleural effusion. Heart/Mediastinum: Unremarkable. No cardiomegaly. Bones/joints: Unremarkable. IMPRESSION: 1. Moderate-sized right pleural effusion. 2. Right basilar atelectasis.
--- NOTE | 2025-07-29 09:01 | HMH.PHAINT1 ---
Pharmacy Intervention Comments: MEDICATION RECONCILIATION COMPLETED ON PATIENT USING EXTERNAL FILL HISTORY FROM PHARMACY AND DISCHARGE SUMMARY FROM PREVIOUS ADMISSION. -LIVE GIBSON, ESTIVEND
[2025-07-29 09:04] LABS: Hematocrit 26.0 % (42.0-52.0); Hemoglobin 7.7 g/dL (14.1-18.0); Immature Granulocytes % 0.3 %; Mean Corpuscular HGB Conc 29.6 g/dL (31.8-35.4); Mean Corpuscular Hemoglobin 26.6 pg (27.0-31.2); Mean Corpuscular Volume 89.7 fl (80-94); Nucleated Red Blood Cells % 0 %; Platelet Count 192 K/mm3 (142-424); Red Blood Count 2.90 M/mm3 (4.60-6.20); Red Cell Distribution Width-SD 52.0 fL; White Blood Count 8.7 K/mm3 (4.8-10.8)
[2025-07-29] MEDS: DOCUSATE SODIUM 100 MG CAPSULE PO ×2 (09:20→20:26)
[2025-07-29] MEDS: PANTOPRAZOLE 40MG TABLET 40 MG PO ×2 (09:20→20:26)
[2025-07-29] MEDS: BUSPIRONE HCL 5 MG TABLET PO ×3 (09:20→20:26)
[2025-07-29] MEDS: FERROUS SULFATE 325MG TABLET 325 MG PO (09:20)
[2025-07-29] MEDS: TAMSULOSIN 0.4MG CAPSULE 0.4 MG PO (09:20)
[2025-07-29] MEDS: FUROSEMIDE 100MG/10ML VIAL 60 MG IV ×2 (09:21→16:51)
[2025-07-29] MEDS: METOPROLOL TARTRATE 25MG TABLET 25 MG PO ×2 (09:22→20:26)
[2025-07-29 09:25] LABS: Alanine Aminotransferase 16 U/L (12-78); Albumin Level 3.0 g/dl (3.5-5.0); Albumin/Globulin Ratio 1.1 (1.1-1.8); Alkaline Phosphatase 79 U/L (38-126); Anion Gap 3.4 mEq/L (5-15); Aspartate Amino Transferase 18 U/L (17-59); Bilirubin,Total 0.5 mg/dl (0.2-1.3); Blood Urea Nitrogen 11 mg/dl (9-20); Calcium 8.4 mg/dl (8.4-10.2); Carbon Dioxide 36 mmol/L (22.0-30.0); Chloride 95 mmol/L (98-107); Cholesterol 84 mg/dl (140-200); Creatinine Clearance Estimated 76 mL/min (50-200); Creatinine,Serum 0.60 mg/dl (0.66-1.25); Estimated Glomerular Filt Rate 134 ml/min (>60); GFR (African American) 163 ML/MIN (>60); Globulin 2.7 g/dL (1.3-3.2); Glucose 142 mg/dl (74-100); HDL Cholesterol 43 mg/dl (40-60); INR 1.13 (0.9-1.1); Magnesium 1.8 mg/dl (1.6-2.3); Potassium 3.4 mmoL/L (3.5-5.1); Prothrombin Time 12.4 seconds (10.1-12.5); Sodium 131 mmol/L (136-145); Total Protein,Serum 5.7 g/dl (6.3-8.2); Triglycerides 58 mg/dl (30-150)
[2025-07-29 09:28] VITALS: BP 118/63; PULSE 91
--- NOTE | 2025-07-29 09:35 | CT_ITS ---
PROCEDURE INFORMATION: Exam: CT Abdomen And Pelvis With Contrast Exam date and time: 07/29/2025 11:17 AM Age: 69 years old Clinical indication: Abdominal pain; Additional info: Central abdominal pain, also eval for cirrhosis TECHNIQUE: Imaging protocol: Computed tomography of the abdomen and pelvis with contrast. Radiation optimization: All CT scans at this facility use at least one of these dose optimization techniques: automated exposure control; mA and/or kV adjustment per patient size (includes targeted exams where dose is matched to clinical indication); or iterative reconstruction. Contrast material: ISOVUE; Contrast volume: 75 ml; Contrast route: IV; COMPARISON: CT ANGIO CHEST PE PROTOCOL 07/28/2025 3:19 PM FINDINGS: Lungs: Compressive atelectasis majority of the right lower lobe. Ill-defined tree-in-bud nodular densities within the left lower lobe, largest measuring 1 cm, stable since 1 day prior. Pleural spaces: Moderate to large right pleural effusion. Liver: Mild nodularity along the liver contour, suggesting possible cirrhosis. No focal liver lesion. Gallbladder and biliary ducts: Previous cholecystectomy. Pancreas: Normal. No ductal dilation. Spleen: Heterogeneous appearance of the spleen, may be due to bolus timing and patient position, evaluation limited with patient's arms at his sides. Adrenal glands: Normal. No mass. Kidneys and ureters: Normal. No hydronephrosis. Stomach and bowel: Colonic diverticulosis without CT evidence of diverticulitis. Appendix: No evidence of appendicitis. Intraperitoneal space: Unremarkable. No free air. No significant fluid collection. Vasculature: Dense atherosclerotic calcification of the abdominal aorta and iliac vasculature. No aortic aneurysm. Lymph nodes: Unremarkable. No enlarged lymph nodes. Urinary bladder: Unremarkable as visualized. Reproductive: Unremarkable as visualized. Bones/joints: Left hip pinning. Soft tissues: Unremarkable. IMPRESSION: 1. Moderate to large right pleural effusion. 2. Compressive atelectasis majority of the right lower lobe. 3. Ill-defined tree-in-bud nodular densities within the left lower lobe, largest measuring 1 cm, stable since 1 day prior. Likely infectious or inflammatory process. 4. Heterogeneous appearance of the spleen, may be due to bolus timing and patient position, evaluation limited with patient's arms at his sides. 5. Mild nodularity along the liver contour, suggesting possible cirrhosis.
[2025-07-29 09:42] LABS: Procalcitonin 0.280 ng/mL (0.0-2.0)
[2025-07-29 09:50] LABS: Free T4 (Free Thyroxine) 2.08 ng/dl (0.78-2.19)
[2025-07-29] MEDS: SODIUM CHLORIDE 0.9% 10ML SYR (RAD ONLY) 10 ML IV (11:19)
[2025-07-29] MEDS: IOPAMIDOL-370 (76%);100ML BOTTLE 75 ML IV (11:19)
[2025-07-29] MEDS: OXYCODONE 5MG IMMEDIATE RELEASE TABLET 5 MG PO (11:37)
[2025-07-29] MEDS: POTASSIUM CHLORIDE 20MEQ TAB 40 MEQ PO ×2 (11:38→14:00)
[2025-07-29 12:00] VITALS: BP 104/59; PULSE 90; RESP 14; TEMP 36.5; O2SAT 94
--- NOTE | 2025-07-29 14:00 | EXP.PN ---
Subjective *Date: 07/29/25 *Time: 16:18 Interval history: Today, patient states he is feeling and breathing better. CT abdomen/pelvis continues to show moderate to large pleural effusion. Will continue IV diuresis. Exam Data for Last 24 hours Vital signs and Labs for Last 24 Hours: Temp Pulse Resp BP Pulse Ox O2 Del Method O2 Flow Rate 97.7 F 90 14 104/59 L 94 L Nasal Cannula 4 07/29/25 12:00 07/29/25 12:00 07/29/25 12:00 07/29/25 12:00 07/29/25 12:00 07/29/25 13:00 07/29/25 13:00 Laboratory Results - last 24 hr 07/28/25 14:28: VBG pH 7.31, VBG pCO2 71.1 H, VBG pO2 38.7, VBG HCO3 35.0 H, VBG Total CO2 37.2 H, VBG O2 Saturation 64.3, VBG Base Excess 8.7 H, VBG Lactic Acid 3.1 H 07/28/25 14:43: WBC 8.7, RBC 3.24 L, Hgb 8.5 L, Hct 29.6 L, MCV 91.4, MCH 26.2 L, MCHC 28.7 L, RDW 15.7, Plt Count 207, MPV 10.3, Neut % (Auto) 91.5 H, Lymph % (Auto) 2.9 L, Grady % (Auto) 5.2, Eos % (Auto) 0.0 L, Baso % (Auto) 0.2, Neut # (Auto) 8.0 H, Lymph # (Auto) 0.3 L, Grady # (Auto) 0.5, Eos # (Auto) 0.0, Baso # (Auto) 0.0, Total Counted 100, Neutrophils % (Manual) 90 H, Lymphocytes % (Manual) 4 L, Monocytes % (Manual) 6, Platelet Estimate Normal, RBC Morphology Normal, D-Dimer 2.07 H, Sodium 134 L, Potassium 3.9, Chloride 94 L, Carbon Dioxide 36 H, Anion Gap 7.9, BUN 13, Creatinine 0.70, Estimated Creat Clear 95, Estimated GFR 112, Est GFR ( Amer) 136, Glucose 200 H, Calcium 8.6, Total Bilirubin 0.5, AST 19, ALT 18, Alkaline Phosphatase 80, Troponin I < 0.01, NT-Pro-B Natriuret Pep 494 H, Total Protein 6.4, Albumin 3.4 L, Globulin 3.0, Albumin/Globulin Ratio 1.1, HCV Ab MACK w/Rflx PCR Qn Reactive, HIV Ag/Ab Combo Qual Negative 07/28/25 17:21: Troponin I < 0.01 07/28/25 18:30: Lactate 2.1 07/28/25 20:12: Troponin I < 0.01 07/28/25 20:45: Lactate 2.2 H 07/29/25 08:40: WBC 8.7, RBC 2.90 L, Hgb 7.7 L, Hct 26.0 L, MCV 89.7, MCH 26.6 L, MCHC 29.6 L, RDW 16.0, Plt Count 192, MPV 10.2, Neut % (Auto) 77.6, Lymph % (Auto) 7.2 L, Grady % (Auto) 12.1 H, Eos % (Auto) 2.5, Baso % (Auto) 0.3, Neut # (Auto) 6.7, Lymph # (Auto) 0.6 L, Grady # (Auto) 1.1 H, Eos # (Auto) 0.2, Baso # (Auto) 0.0, PT 12.4, INR 1.13 H, Sodium 131 L, Potassium 3.4 L, Chloride 95 L, Carbon Dioxide 36 H, Anion Gap 3.4 L, BUN 11, Creatinine 0.60 L, Estimated Creat Clear 76, Estimated GFR 134, Est GFR ( Amer) 163, Glucose 142 H D, Calcium 8.4, Magnesium 1.8, Total Bilirubin 0.5, AST 18, ALT 16, Alkaline Phosphatase 79, Total Protein 5.7 L, Albumin 3.0 L D, Globulin 2.7, Albumin/Globulin Ratio 1.1, Triglycerides 58, Cholesterol 84 L, LDL Cholesterol Direct 35.33 L, VLDL Cholesterol 12, HDL Cholesterol 43, Cholesterol/HDL Ratio 2.0, Procalcitonin 0.280, Free T4 2.08 I & O for Last 24 hours: Intake & Output 07/26/25 07/27/25 07/28/25 07/29/25 23:59 23:59 23:59 23:59 Intake Total 150 / 150 0 / 0 Output Total 200 / 200 Balance -50 / -50 0 / 0 Weight 75.75 kg 75.342 kg Assessment and Plan *Assessment and plan (1) Pleural effusion: Status: Acute Category: Medical Code(s): J90 - Pleural effusion, not elsewhere classified Plan Mr. Mckeon is a 69-year-old old male who resides at [facility] nursing facility. He has a past medical history of lung cancer status post radiation at [facility] (adenocarcinoma RLL 2022 status post SBRT), atrial fibrillation, COPD on 4 L of oxygen, hypertension, hyperlipidemia, BPH. Patient [facility] from [facility] via [facility] with shortness of breath. Patient poor historian, and was unable to tell me that he came from [facility] at time of my bedside evaluation. #Right pleural effusion, recurrent #History of RLL adenocarcinoma s/p SBRT in remission #Chronic hypoxic respiratory failure, 4 L #Acute HFpEF #RV failure ? Presented with progressive shortness of breath, CTA chest on admission suggestive of right lower lobe pneumonia versus atelectasis with associated effusion. Initial WBC normal, on baseline 4 L. No signs of sepsis. ? Patient was recently admitted for similar presentation, sputum culture showing rare growth. He was empirically treated with vancomycin, Zosyn and discharged with Augmentin for total of 7 days. ? Discussed with pulmonology, low concern for infectious process. Will trial diuretic challenge and follow-up in response. ? Of note, patient had recent stay at [facility] in [place] where he had a thoracentesis performed x 2 and a bronchoscopy FNA. Thoracentesis fluid showed no evidence of malignancy. Bronchoscopy was nondiagnostic. Per my review of records from [facility] recommendations of follow-up PET scan. Attempts to find pleural study results unsuccessful. At this time, pleural effusion is presumed to be transudative at this time. ? ECHO June 2025 shows low normal LV systolic function, 50%. Moderately to severely dilated RV with moderate reduction in RV function, biatrial dilation, small size circumferential pericardial effusion. No evidence of tamponade on echo. ? CT abdomen/pelvis on 07/29/2025 suggested mild nodularity of liver contour suggesting possible cirrhosis, recurrent pleural effusion may be from this etiology. However, PT/INR, platelets, albumin relatively normal. ? Today, patient states he is feeling and breathing better. CT abdomen/pelvis continues to show moderate to large pleural effusion. Will continue IV diuresis. ? Continue IV Lasix 40 mg twice daily, inaccurate I&O's at this time due to bedwetting. Follow-up CXR in the morning. Kidney function stable, creatinine 0.60. ? Pulmonology consulted, pending further recommendations. ? Will need outpatient sleep study. #COPD ? Currently stable. Continue Trelegy 100 inhaler. #Acute on chronic anemia #History of bleeding AVMs #History of iron deficiency anemia ? Hemoglobin dropped from 8.5-7.7 today. Received therapeutic Lovenox overnight. Will hold today. No melanotic stools at this time. ? Follow-up FOBT. ? Received records from [facility], patient had a hospital stay in March 2025 for GI bleed. 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 Patient's Eliquis was held at that time but orders to resume Eliquis after discharge. Patient denies melena or bright red bleeding per rectum. ? Continue Protonix 40 mg twice daily. Neuropathic pain: Cymbalta 60 mg p.o. daily Headache: Imitrex 50 mg as needed twice daily for headache not resolved by Tylenol. Mood disorder: BuSpar 5 mg p.o. 3 times daily, Risperdal 1 mg p.o. daily GERD: 40 mg p.o. daily Hypercholesterolemia: atorvastatin 40 mg p.o. daily BPH: Flomax 0.4 mL p.o. daily Anemia: ferrous sulfate 324 milligrams p.o. daily. Atrial fibrillation: Eliquis 5 mg p.o. twice daily
[2025-07-29 16:00] VITALS: BP 133/77; PULSE 98; RESP 16; TEMP 37; O2SAT 96
--- NOTE | 2025-07-29 16:22 | PC.NURSE ---
Pt has been alert to self, birthday, and place this shift. Vital signs stable tolerating baseline 4L NC. No c/o SOB. IV lasix given per OCT. Pt has purewick in place for accurate I&O's but has pulled it off at times today so has had multiple incontinent episodes. Pt was agitated and anxious with staff this morning. Pt called 911 multiple times this morning because he wanted someone to sit with him in his room and was lonely. cytology supervisor and charge nurse aware. Explained to pt to use his call light if he needed staff and to not call 911 if there wasn't an emergency. Pt verbalized understanding. Pt resting comfortably supine in bed with no further needs voiced at this time. Call light within reach.
[2025-07-29 16:49] LABS: C-Reactive Protein 44.1 mg/L (0-4)
[2025-07-29] MEDS: SPIRONOLACTONE 25MG TABLET 25 MG PO (16:51)
[2025-07-29 20:00] VITALS: BP 133/71; PULSE 100; RESP 17; TEMP 36.6; O2SAT 96
[2025-07-29] MEDS: ATORVASTATIN 40MG TABLET 40 MG PO (20:26)
[2025-07-29] MEDS: MELATONIN 5MG TABLET 5 MG PO (20:26)
[2025-07-29 22:00] LABS: Occult Blood,Stool Positive (Negative)
--- NOTE | 2025-07-29 22:42 | PC.NURSE ---
Pt had a H&H ordered. Lab attempted to get blood and pt refused. This nurse went into pt room to try and educate on the importance of the lab. Pt still refused. Hospitalist notified and went to the bedside to talk to patient. He continued to refused. Hospitalist said to retry in the morning with AM labs.
[2025-07-30 01:30] VITALS: BP 111/66; PULSE 79; RESP 17; TEMP 36.7; O2SAT 94
[2025-07-30 01:32] LABS: Hematocrit 26.3 % (42.0-52.0); Hemoglobin 7.6 g/dL (14.1-18.0)
[2025-07-30] MEDS: OXYCODONE 5MG IMMEDIATE RELEASE TABLET 5 MG PO (01:42)
[2025-07-30 04:00] VITALS: BMI 22.6
--- NOTE | 2025-07-30 06:00 | XR_ITS ---
PROCEDURE INFORMATION: Exam: XR Chest Exam date and time: 07/30/2025 5:57 AM Age: 69 years old Clinical indication: Abnormal findings; Other: Follow-up right pleural effusion TECHNIQUE: Imaging protocol: Radiologic exam of the chest. Views: 1 view. COMPARISON: CR XR CHEST PORTABLE 07/29/2025 8:38 AM FINDINGS: Lungs: Bibasilar and midlung opacities related to atelectasis and/or pneumonia. Interval increase in left basilar opacity as well. Pleural spaces: Persistent right-sided pleural effusion, similar in appearance to the prior exam. Heart/Mediastinum: No acute findings or cardiomegaly. Bones/joints: No acute findings. IMPRESSION: 1. Persistent moderate right-sided pleural effusion. 2. Persistent bibasilar and right mid lung opacities related to atelectasis and/or pneumonia, slightly increasing in the left lung base.
[2025-07-30 07:12] LABS: Hematocrit 29.3 % (42.0-52.0); Hemoglobin 8.1 g/dL (14.1-18.0); Immature Granulocytes % 0.2 %; Mean Corpuscular HGB Conc 27.6 g/dL (31.8-35.4); Mean Corpuscular Hemoglobin 25.2 pg (27.0-31.2); Mean Corpuscular Volume 91.0 fl (80-94); Nucleated Red Blood Cells % 0 %; Platelet Count 209 K/mm3 (142-424); Red Blood Count 3.22 M/mm3 (4.60-6.20); Red Cell Distribution Width-SD 52.5 fL; White Blood Count 8.4 K/mm3 (4.8-10.8)
[2025-07-30 07:29] LABS: Albumin Level 3.0 g/dl (3.5-5.0); Chloride 96 mmol/L (98-107)
[2025-07-30 07:30] LABS: Potassium 4.2 mmoL/L (3.5-5.1); Sodium 139 mmol/L (136-145)
[2025-07-30 07:32] LABS: Alanine Aminotransferase 14 U/L (12-78); Albumin/Globulin Ratio 1.1 (1.1-1.8); Alkaline Phosphatase 77 U/L (38-126); Anion Gap 8.2 mEq/L (5-15); Aspartate Amino Transferase 21 U/L (17-59); Bilirubin,Total 0.4 mg/dl (0.2-1.3); Blood Urea Nitrogen 10 mg/dl (9-20); Carbon Dioxide 39 mmol/L (22.0-30.0); Creatinine Clearance Estimated 75 mL/min (50-200); Creatinine,Serum 0.70 mg/dl (0.66-1.25); Estimated Glomerular Filt Rate 112 ml/min (>60); GFR (African American) 136 ML/MIN (>60); Globulin 2.8 g/dL (1.3-3.2); Glucose 107 mg/dl (74-100); Total Protein,Serum 5.8 g/dl (6.3-8.2)
[2025-07-30 07:33] LABS: Calcium 8.2 mg/dl (8.4-10.2); Magnesium 1.9 mg/dl (1.6-2.3)
--- NOTE | 2025-07-30 07:54 | HMH.PTEV ---
Physical Therapy Evaluation Rehab PT IP Evaluation Start: 07/28/25 17:25 Freq: ONCE Status: Active Protocol: Document 07/30/25 07:49 ANTONI (Rec: 07/30/25 07:53 ANTONI [id number]) Subjective/History History History Per H&P: This is a 69-year-old male who has a past medical history significant for adenocarcinoma/ lung cancer status post radiation/chemotherapy in remission, HFpEF, pleural effusion, cataracts, constipation, hypertension, hyperlipidemia, iron deficiency anemia, insomnia, mood disorder, BPH, atrial fibrillation, COPD, and coronary artery disease who presents with a chief complaint of shortness of breath and anxiety. Due to patient's symptoms, he presents emergency room via EMS. While in the emergency room, CTA of the chest revealed a right lower lobe opacity favor combination of pneumonia, tree-in-bud opacities in the periphery of the lower lobe keeping with bronchiolitis, and no evidence of filling defect to suggest pulmonary embolism. Patient did have right lower lobe pleural effusion his case was discussed with pulmonology who recommended to diurese patient. As a result, hospital medicine was consulted for further management. During my evaluation of patient, patient was somewhat confused. He did endorse having some shortness of air. Patient is currently denying any chest pain, lightheadedness, dizziness, fever, chills, rigors, nausea, dyspnea, diarrhea. Additional pertinent labs obtained including red blood cell count of 3.24, hemoglobin 8.5, hematocrit 29.6, neutrophils 91.5%, D- dimer 2.07, pCO2 of 71.1, bicarb 35, sodium 134, chloride 94, carbon oxide of 36, blood glucose of 200, BNP of 494, and albumin of 3.4. Subjective Subjective PLOF: IND with all mobility with use of RW. No falls in past 60 days per pt. HOME: Lives alone in a SS home with 0 KEELY. ASSIST: Pt reports he may be able to have someone stay with him if needed. [facility] How much help from another person do you currently need... Turning from your None back to your side while in a flat bed without using bedrails? Moving from lying on None back to sitting on the side of a flat bed without using bedrails? Moving to and from a None bed to a chair ( including a wheelchair)? Standing up from a None chair using your arms? (e.g., wheelchair, bedside chair) Walking in hospital A little room? Climbing 3-5 steps A little with a railing? Mobility Score 22 Mobility Level [facility] Mobility 7 Walk 25 feet or more Mobility Calculator Rehab PT IP Eval Objective Appearance Patient Behavior Appropriate,Cooperative Patient Orientation Person Difficulty following none instructions Speech Pattern Clear Ambulation Patient Able to Yes Ambulate Ambulation Observation IP General Gait No Deviations/Normal Pattern Observation Ambulation Distance 10 (feet) Ambulation Assistive Rolling Walker Device Ambulation Ability Contact Guard/Hand Hold Balance Ability to Arise Able, uses arms to help Sitting Balance Steady, safe Standing Balance Steady, wide stance Dynamic Sitting Good Balance Ability Dynamic Standing Fair Balance Ability Transfers Bed Transfer Ability Supervision/Stand by Sit to Stand Bed Supervision/Stand by Transfer Ability Rehab PT IP prob,goals,plan Problems Date of Evaluation: 07/30/25 PT IP Problems Transfers,Gait,Balance,Safety,Other Other Pt Problem Endurance Rehab Potential Rehab Potential Good Plan PT Intervention Plan Transfers,Gait,Balance,Self care,Safety,Therapeutic Exercise Other Intervention 1-2 times Plan PT Plan Frequency Daily Duration Goals Met Discharge Goals Bed Transfer Ability Independent Sit to Stand Chair Independent Transfer Ability Ambulation Assistive Rolling Walker Device Ambulation Distance 75 (feet) Discharge Plan PT Discharge Plan Pt presents below his baseline in gait, endurance, and global strength. Pt demo'd good standing balance and was able to ambulate but was limited in ambulation distance d/t decreased endurance. Pt most appropriate to d/c home when deemed medically necessary with PT services. Pt would benefit from skilled PT while at [facility] to address deficits until goals are met. Eval Complexity Eval Charge Codes 84171 - Moderate Complexity PHYSICIAN CERTIFICATION: I certify the specified therapy services for Javy Mckeon are required, authorized, and reviewed every 30 days.
[2025-07-30 08:00] VITALS: BP 115/71; PULSE 86; RESP 12; TEMP 36.8; O2SAT 94
[2025-07-30] MEDS: BUSPIRONE HCL 5 MG TABLET PO ×2 (08:00→13:47)
[2025-07-30] MEDS: DOCUSATE SODIUM 100 MG CAPSULE PO (08:01)
[2025-07-30] MEDS: FERROUS SULFATE 325MG TABLET 325 MG PO (08:01)
[2025-07-30] MEDS: FUROSEMIDE 100MG/10ML VIAL 60 MG IV ×2 (08:02→15:27)
[2025-07-30] MEDS: PANTOPRAZOLE 40MG TABLET 40 MG PO (08:03)
[2025-07-30] MEDS: SPIRONOLACTONE 25MG TABLET 25 MG PO (08:03)
[2025-07-30] MEDS: TAMSULOSIN 0.4MG CAPSULE 0.4 MG PO (08:03)
[2025-07-30] MEDS: METOPROLOL TARTRATE 25MG TABLET 25 MG PO (08:04)
--- NOTE | 2025-07-30 08:15 | SW/DCPLANNER ---
Addendum entered by Eulalia Gilliam 07/30/25 14:06: I have updated Cat that patient will return today [facility] level of care. Addendum entered by Eulalia Gilliam 07/30/25 12:50: Per Cat sharpe/ Hallie Del Real his sister (Gissell Mcdonnell [phone]) is his only family. Original Note: Patient currently resides at [facility] level of care. Updated patient information faxed to Cat Sterling. Discharge date is unknown at this time. CM will continue to follow up.
--- NOTE | 2025-07-30 10:05 | EXP.PULM.CON ---
History of Present Illness History of present illness: Mr. Mckeon is a 69-year-old male with reported history of adenocarcinoma lung status post radiation at [facility], atrial fibrillation COPD chronic hypoxic respiratory failure on 4 L oxygen supplementation hypertension dyslipidemia presented to the ER with worsening respiratory distress , worsening right effusion and pulmonary was called for further evaluation and management. [facility] Disclaimer: The information contained in this section may have been updated after the patient was seen, as this information can be updated by other users. Medical History Pericardial effusion Shortness of Breath Pleural effusion on right Pleural effusion, left Acute and chronic respiratory failure with hypoxia Lung cancer Right lower lobe, completed radiation treatments at [facility] in July, Onychomycosis Cataracts, bilateral Alteration in physical mobility Abnormal gait Generalized muscle weakness Constipation Pleural effusion Heart failure HTN (hypertension) Depressive disorder Delirium Hyperlipemia Protein calorie malnutrition Malignant neoplasm Sepsis Insomnia Mood disorder Chronic iron deficiency anemia BPH (benign prostatic hyperplasia) A-fib Hypoxic respiratory failure COPD (chronic obstructive pulmonary disease) S/P radiation therapy Cancer of right lung CAD (coronary artery disease) Surgical History History of cholecystectomy Presence of coronary angioplasty implant and graft Social History Smoking Status: Former smoker tobacco type: cigarettes years smoked: 20 smoking status stop date: april 2024 how long ago did patient quit smokin year quit status: considering quitting alcohol intake: never current occupational status: retired Travel in the last 8 weeks?: None marital status: single number of children: 0 Have you lived/traveled outside [place] in past 30 days?: No Contact w/someone who lives/traveled outside US past 30 days?: No Exposure to someone with infectious disease in past 14 days?: No Do you have a fever (greater than 100.4 F or 38 C)?: No Have you tested positive for COVID-19?: No Exposed to someone with COVID-19 in past 14 days?: No Do you have a sore throat?: No Do you have a cough?: No Do you have any weakness?: No Do you have any diarrhea?: No Are you experiencing any unusual bleeding?: No Do you have any muscle aches/pain?: No Do you have any abdominal pain?: No Are you experiencing loss of taste or smell?: No Review of Systems Constitutional Constitutional: Reports fatigue and Reports lethargy Eyes Eyes: Denies eye discharge, Denies dry eyes, Denies irritation and Denies itchy eyes ENT Ears, Nose, Mouth, and Throat: Denies epistaxis, Denies facial pain, Denies lip swelling and Denies throat swelling *Cardiovascular Cardiovascular: Reports dyspnea and Reports dyspnea on exertion *Respiratory Respiratory: Denies change in phlegm color, Reports chest congestion, Reports cough, Reports dyspnea, Reports dyspnea on exertion, Denies excessive phlegm production and Denies wheezing *Gastrointestinal Gastrointestinal: Denies abdominal pain, Denies belching and Denies cramping *Musculoskeletal Musculoskeletal: Reports back pain, Reports myalgias and Reports other (No small joint swelling or Pain) *Neurologic Neurologic: Reports confusion Psychiatric Psychiatric: Reports confusion Endocrine Endocrine: Reports fatigue and Denies heat intolerance Hematologic/Lymphatic Hematologic/Lymphatic: Denies easy bleeding and Denies lymphadenopathy Allergic/Immunologic Allergic/Immunologic: Denies itchy eyes, Denies lip swelling, Denies throat swelling and Denies wheezing Pulmonology Exam Inpatient Vital signs and Labs for Last 24 Hours: Temp Pulse Resp BP Pulse Ox O2 Del Method O2 Flow Rate 98.2 F 86 12 115/71 94 L Nasal Cannula 4 07/30/25 08:00 07/30/25 08:00 07/30/25 08:00 07/30/25 08:00 07/30/25 08:00 07/30/25 09:00 07/30/25 09:00 Laboratory Results - last 24 hr 07/29/25 08:40: C-Reactive Protein 44.1 H 07/29/25 17:24: Stool Occult Blood Positive A 07/30/25 01:15: Hgb 7.6 L, Hct 26.3 L 07/30/25 06:22: WBC 8.4, RBC 3.22 L, Hgb 8.1 L, Hct 29.3 L, MCV 91.0, MCH 25.2 L, MCHC 27.6 L, RDW 15.9, Plt Count 209, MPV 10.5 H, Neut % (Auto) 69.7, Lymph % (Auto) 11.9, Nicholas % (Auto) 13.5 H, Eos % (Auto) 4.1, Baso % (Auto) 0.6, Neut # (Auto) 5.9, Lymph # (Auto) 1.0, Nicholas # (Auto) 1.1 H, Eos # (Auto) 0.3, Baso # (Auto) 0.1, Sodium 139, Potassium 4.2 D, Chloride 96 L, Carbon Dioxide 39 H, Anion Gap 8.2, BUN 10, Creatinine 0.70, Estimated Creat Clear 75, Estimated GFR 112, Est GFR ( Amer) 136, Glucose 107 H D, Calcium 8.2 L, Magnesium 1.9, Total Bilirubin 0.4, AST 21, ALT 14, Alkaline Phosphatase 77, Total Protein 5.8 L, Albumin 3.0 L, Globulin 2.8, Albumin/Globulin Ratio 1.1 I & O for Labs for Last 24 Hours: Intake & Output 07/27/25 07/28/25 07/29/25 07/30/25 23:59 23:59 23:59 23:59 Intake Total 150 / 150 250 / 250 Output Total 200 / 200 570 / 570 400 / 400 Balance -50 / -50 -320 / -320 -400 / -400 Weight 167 lb 166 lb 1.6 oz 162 lb 1.6 oz Constitutional: Present moderate distress Head: Present normocephalic and atraumatic ENT: Present normal exam, normal oropharynx and mucous membranes moist Neck: Present normal inspection and full ROM Respiratory: Present prolonged expiratory phase, respiratory distress, wheezes, distant breath sounds, diminished air movement and able to speak in complete sentences; Absent normal respiratory effort Cardiac: Present S1/S2, Tachycardia and radial pulses present GI: Present soft and distention; Absent tenderness or guarding Skin: Present intact; Absent cyanosis or jaundice Neuro: Present awake Extremities: Present normal inspection; Absent clubbing or cyanosis Psychiatric: Present unable to assess; Absent good insight Meds Home Medications and Allergies Home Medications ?Medication ?Instructions ?Recorded ?Confirmed ?Type albuterol sulfate 2.5 mg/0.5 mL 2.5 mg inhalation Q6HP PRN 06/11/25 07/28/25 History solution for nebulization Shortness Of Breath apixaban 5 mg tablet (Eliquis) 5 mg PO BID 06/11/25 07/28/25 History atorvastatin 40 mg tablet (Lipitor) 40 mg PO HS 06/11/25 07/28/25 History docusate sodium 100 mg capsule 100 mg PO BID 06/11/25 07/28/25 History duloxetine 60 mg capsule,delayed 60 mg PO DAILY 06/11/25 07/28/25 History release ferrous sulfate 324 mg (65 mg 324 mg PO DAILY 06/11/25 07/28/25 History iron) tablet,delayed release melatonin 3 mg capsule 6 mg PO HS 06/11/25 07/28/25 History metoprolol tartrate 25 mg tablet 25 mg PO BID 06/11/25 07/28/25 History pantoprazole 40 mg tablet,delayed 40 mg PO BID 06/11/25 07/28/25 History release (Protonix) prednisone 10 mg tablet 10 mg PO DAILY 06/11/25 07/28/25 History tamsulosin 0.4 mg capsule (Flomax) 0.4 mg PO DAILY 06/11/25 07/28/25 History ascorbic acid (vitamin C) 500 mg 500 mg PO DAILY 07/01/25 07/28/25 History tablet buspirone 5 mg tablet 5 mg PO TID 07/01/25 07/28/25 History fluticasone fur. 200 mcg-umeclid 1 inh inhalation DAILY 07/01/25 07/28/25 History 62.5 mcg-vilant 25 mcg inhalat.powder (Trelegy Ellipta) oxycodone 5 mg tablet 5 mg PO Q8HP PRN Moderate Pain 07/01/25 07/28/25 History (Scale Score 5-6) risperidone 1 mg tablet 1 mg PO DAILY 07/01/25 07/28/25 History furosemide 40 mg tablet 40 mg PO DAILY 07/12/25 07/28/25 History polyethylene glycol 3350 17 17 g PO DAILY PRN constipation 07/24/25 07/28/25 Rx gram/dose oral powder (Miralax) #510 grams New Prescriptions to Start Prescriptions: Allergies Allergy/AdvReac Type Severity Reaction Status Date / Time diclofenac Allergy Unknown Unknown Verified 07/24/25 12:13 allergy reaction Results Laboratory Findings 07/30/25 06:22 12 06:22 PT/INR, D-dimer PT 12.4 seconds (10.1-12.5) 07/29/25 08:40 INR 1.13 (0.9-1.1) H 07/29/25 08:40 D-Dimer 2.07 ug/mL (0.0-0.5) H 07/28/25 14:43 Abnormal lab findings: Abnormal Labs 07/28/25 07/28/25 07/28/25 14:28 14:43 20:45 RBC 3.24 L Hgb 8.5 L Hct 29.6 L MCH 26.2 L MCHC 28.7 L MPV Neut % (Auto) 91.5 H Lymph % (Auto) 2.9 L Nicholas % (Auto) Eos % (Auto) 0.0 L Neut # (Auto) 8.0 H Lymph # (Auto) 0.3 L Nicholas # (Auto) Neutrophils % (Manual) 90 H Lymphocytes % (Manual) 4 L INR D-Dimer 2.07 H VBG pCO2 71.1 H VBG HCO3 35.0 H VBG Total CO2 37.2 H VBG Base Excess 8.7 H VBG Lactic Acid 3.1 H Sodium 134 L Potassium Chloride 94 L Carbon Dioxide 36 H Anion Gap Creatinine Glucose 200 H Lactate 2.2 H Calcium C-Reactive Protein NT-Pro-B Natriuret Pep 494 H Total Protein Albumin 3.4 L Cholesterol LDL Cholesterol Direct Stool Occult Blood 07/29/25 07/29/25 07/30/25 08:40 17:24 01:15 RBC 2.90 L Hgb 7.7 L 7.6 L Hct 26.0 L 26.3 L MCH 26.6 L MCHC 29.6 L MPV Neut % (Auto) Lymph % (Auto) 7.2 L Nicholas % (Auto) 12.1 H Eos % (Auto) Neut # (Auto) Lymph # (Auto) 0.6 L Nicholas # (Auto) 1.1 H Neutrophils % (Manual) Lymphocytes % (Manual) INR 1.13 H D-Dimer VBG pCO2 VBG HCO3 VBG Total CO2 VBG Base Excess VBG Lactic Acid Sodium 131 L Potassium 3.4 L Chloride 95 L Carbon Dioxide 36 H Anion Gap 3.4 L Creatinine 0.60 L Glucose 142 H D Lactate Calcium C-Reactive Protein 44.1 H NT-Pro-B Natriuret Pep Total Protein 5.7 L Albumin 3.0 L D Cholesterol 84 L LDL Cholesterol Direct 35.33 L Stool Occult Blood Positive A 07/30/25 06:22 RBC 3.22 L Hgb 8.1 L Hct 29.3 L MCH 25.2 L MCHC 27.6 L MPV 10.5 H Neut % (Auto) Lymph % (Auto) Nicholas % (Auto) 13.5 H Eos % (Auto) Neut # (Auto) Lymph # (Auto) Nicholas # (Auto) 1.1 H Neutrophils % (Manual) Lymphocytes % (Manual) INR D-Dimer VBG pCO2 VBG HCO3 VBG Total CO2 VBG Base Excess VBG Lactic Acid Sodium Potassium Chloride 96 L Carbon Dioxide 39 H Anion Gap Creatinine Glucose 107 H D Lactate Calcium 8.2 L C-Reactive Protein NT-Pro-B Natriuret Pep Total Protein 5.8 L Albumin 3.0 L Cholesterol LDL Cholesterol Direct Stool Occult Blood Assessment and Plan *Assessment and plan (1) Sepsis: Status: Resolved Category: Medical Code(s): A41.9 - Sepsis, unspecified organism (2) Pneumonia: Status: Acute Category: Medical Code(s): J18.9 - Pneumonia, unspecified organism (3) Acute and chronic respiratory failure with hypoxia: Status: Acute Category: Medical Code(s): J96.21 - Acute and chronic respiratory failure with hypoxia (4) Pleural effusion on right: Status: Acute Category: Medical Code(s): J90 - Pleural effusion, not elsewhere classified Plan Mr. Mckeon is a 69-year-old male with reported history of adenocarcinoma lung status post radiation at [facility], atrial fibrillation COPD chronic hypoxic respiratory failure on 4 L oxygen supplementation hypertension dyslipidemia presented to the ER with worsening respiratory distress , worsening right effusion and pulmonary was called for further evaluation and management. Afebrile. Hemodynamically stable. No evidence of leukocytosis. CT chest upon admission worsening right-sided pleural effusion. No dense consolidative or airspace changes. Continue to show right lower lobe likely atelectasis adjacent to the effusion. Cannot completely rule out airspace disease. Airspace disease left lower lobe. Chest x-ray from today continue to show moderate to large right-sided pleural effusion. Had a thoracentesis on 05/08/2009 21. Pleural fluid cytology from 916 negative for malignancy. Underwent bronchoscopy EBUS FNA nondiagnostic recommended PET CT scan Plan: DuoNebs every 6 hours along with Pulmicort every 12 scheduled Initiate ceftriaxone Zithromycin pending sputum culture result Will plan for thoracentesis given concerning right sided pleural effusion with no significant improvement with diuretics. Continue oxygen supplementation to maintain O2 saturation goal of 90% and above # Thank you for involving pulmonary in this patient care. Will continue to follow.
--- NOTE | 2025-07-30 11:00 | PC.NURSE ---
Attempted to contact pt next of kin by telephone. no answer. unable to leave voicemail.
[2025-07-30] MEDS: IPRATROPIUM/ALBUTEROL 3 ML NEB IH (11:51)
[2025-07-30 11:52] VITALS: PULSE 79; PULSE 80
[2025-07-30 12:00] VITALS: BP 86/50; PULSE 90; RESP 18; TEMP 36.7; O2SAT 90
--- NOTE | 2025-07-30 12:12 | P.PN_ITS ---
<Statement entered by Jam Ledesma MD - 07/31/25 15:42> Agree with plan of care as outlined by the STRIP FEEDER. Subjective *Date: 07/30/25 *Time: 12:12 Interval history: Mr. Mckeon is doing well today, sitting up in bed. Interactive with discussion, on 3 L nasal cannula (below baseline). Has no complaints of pain. Awaiting pulmonology consult. Medical Exam Vital signs and Labs for Last 24 Hours: Vital Signs Temp Pulse Pulse Resp BP Pulse Ox O2 Del Method 07/30/25 11:52 79 07/30/25 11:52 80 07/30/25 09:00 Nasal Cannula 07/30/25 08:00 Nasal Cannula 07/30/25 08:00 98.2 F 86 12 115/71 94 L Nasal Cannula 07/30/25 06:37 Nasal Cannula 07/30/25 05:00 Nasal Cannula 07/30/25 03:00 Nasal Cannula 07/30/25 01:30 98.0 F 79 17 111/66 94 L Nasal Cannula 07/30/25 01:00 Room Air 07/29/25 23:00 Nasal Cannula 07/29/25 21:00 Nasal Cannula 07/29/25 20:00 Nasal Cannula 07/29/25 20:00 97.9 F 100 H 17 133/71 96 Nasal Cannula 07/29/25 19:00 Nasal Cannula 07/29/25 17:00 Nasal Cannula 07/29/25 16:00 98.6 F 98 H 16 133/77 96 Nasal Cannula 07/29/25 15:00 Nasal Cannula 07/29/25 13:00 Nasal Cannula O2 Flow Rate 07/30/25 11:52 07/30/25 11:52 07/30/25 09:00 4 07/30/25 08:00 4 07/30/25 08:00 4 07/30/25 06:37 4 07/30/25 05:00 4 07/30/25 03:00 4 07/30/25 01:30 4 07/30/25 01:00 07/29/25 23:00 4 07/29/25 21:00 4 07/29/25 20:00 4 07/29/25 20:00 4 07/29/25 19:00 4 07/29/25 17:00 4 07/29/25 16:00 4 07/29/25 15:00 4 07/29/25 13:00 4 Intake and Output 07/29/25 07/30/25 07/30/25 23:59 07:59 15:59 Intake Total 250 / 250 Output Total 0 / 570 400 / 400 Balance 250 / -320 -400 / -400 Intake: Intake, Oral Amount 250 / 250 Output: Output, Urine Amount 0 / 570 400 / 400 Other: Number of Unmeasured Voids 1 0 1 Number of Bowel Movements 1 Weight 73.527 kg Patient Weight 07/30/25 23:59 Weight 73.527 kg Laboratory Results - last 24 hr 07/29/25 08:40: C-Reactive Protein 44.1 H 07/29/25 17:24: Stool Occult Blood Positive A 07/30/25 01:15: Hgb 7.6 L, Hct 26.3 L 07/30/25 06:22: WBC 8.4, RBC 3.22 L, Hgb 8.1 L, Hct 29.3 L, MCV 91.0, MCH 25.2 L , MCHC 27.6 L, RDW 15.9, Plt Count 209, MPV 10.5 H, Neut % (Auto) 69.7, Lymph % (Auto) 11.9, [place] % (Auto) 13.5 H, Eos % (Auto) 4.1, Baso % (Auto) 0.6, Neut # (Auto) 5.9, Lymph # (Auto) 1.0, [place] # (Auto) 1.1 H, Eos # (Auto) 0.3, Baso # (Auto) 0.1, Sodium 139, Potassium 4.2 D, Chloride 96 L, Carbon Dioxide 39 H, Anion Gap 8.2, BUN 10, Creatinine 0.70, Estimated Creat Clear 75, Estimated GFR 112, Est GFR ( Amer) 136, Glucose 107 H D, Calcium 8.2 L, Magnesium 1.9, Total Bilirubin 0.4, AST 21, ALT 14, Alkaline Phosphatase 77, Total Protein 5.8 L, Albumin 3.0 L, Globulin 2.8, Albumin/Globulin Ratio 1.1 I & O for Labs for Last 24 Hours: Intake & Output 07/27/25 07/28/25 07/29/25 07/30/25 23:59 23:59 23:59 23:59 Intake Total 150 / 150 250 / 250 Output Total 200 / 200 570 / 570 400 / 400 Balance -50 / -50 -320 / -320 -400 / -400 Weight 75.75 kg 75.342 kg 73.527 kg Constitutional: Present no acute distress, average body habitus, chronically ill appearing and cooperative Head: Present atraumatic Eyes: Present as per HPI ENT: Present normal exam Neck: Present normal inspection Respiratory: Present decreased breath sounds (Bilateral lower lobes) and normal respiratory effort; Absent wheezes or crackles Cardiac: Present Reg Rate and Rhythm and No Murmur GI: Present soft and normal bowel sounds; Absent distention or tenderness Rectal (male): Present deferred (male): Present deferred Extremities: Present normal inspection and full ROM; Absent edema Skin: Present intact and dry; Absent erythema Neuro: Present Grossly Intact and moves all extremities Comment:: Flat affect Assessment and Plan *Assessment and plan (1) Pleural effusion: Status: Acute Category: Medical Code(s): J90 - Pleural effusion, not elsewhere classified Plan Mr. Mckeon is a 69-year-old old male who resides at [facility] nursing facility. He has a past medical history of lung cancer status post radiation at [facility] (adenocarcinoma RLL 2022 status post SBRT), atrial fibrillation, COPD on 4 L of oxygen, hypertension, hyperlipidemia, BPH. Patient presents from residential via ambulance with shortness of breath. Patient poor historian, and was unable to tell me that he came from [facility] at time of my bedside evaluation. Patient still requiring inpatient management due to right sided effusion, plans for thoracentesis today. Plan of care as follows: #Right pleural effusion, recurrent #History of RLL adenocarcinoma s/p SBRT in remission #Chronic hypoxic respiratory failure, 4 L #Acute HFpEF #RV failure ? Presented with progressive shortness of breath, CTA chest on admission suggestive of right lower lobe pneumonia versus atelectasis with associated effusion. Initial WBC normal, on baseline 4 L. No signs of sepsis. ? Patient was recently admitted for similar presentation, sputum culture showing rare growth. He was empirically treated with vancomycin, Zosyn and discharged with Augmentin for total of 7 days. ? Discussed with pulmonology, low concern for infectious process. Trial of diuretic Lasix 40 mg twice daily, little to no improvement, plans for thoracentesis with pulmonology today. ? Of note, patient had recent stay at [facility] in [place] where he had a thoracentesis performed x 2 and a bronchoscopy FNA. Thoracentesis fluid showed no evidence of malignancy. Bronchoscopy was nondiagnostic. Per review of records from [facility] recommendations of follow-up PET scan. Attempts to find pleural study results unsuccessful. At this time, pleural effusion is presumed to be transudative at this time. ? ECHO June 2025 shows low normal LV systolic function, 50%. Moderately to severely dilated RV with moderate reduction in RV function, biatrial dilation, small size circumferential pericardial effusion. No evidence of tamponade on echo. ? CT abdomen/pelvis on 07/29/2025 suggested mild nodularity of liver contour suggesting possible cirrhosis, recurrent pleural effusion may be from this etiology. However, PT/INR, platelets, albumin relatively normal. ? Today, patient states he is feeling and breathing better. CT abdomen/pelvis continues to show moderate to large pleural effusion. Will continue IV diuresis. ? Continue IV Lasix 40 mg twice daily, inaccurate I&O's at this time due to incontinence.Kidney function stable, creatinine 0.70. ? Pulmonology consulted, recommendations for thoracentesis today. ? Will need outpatient sleep study. #COPD ? Currently stable. Continue Trelegy 100 inhaler. 3 L nasal cannula. #Acute on chronic anemia #History of bleeding AVMs #History of iron deficiency anemia ? Hemoglobin initially 8.5, stable today at 8.1. Holding blood thinners at this time. ? FOBT positive. ? Received records from [facility], patient had a hospital stay in March 2025 for GI bleed. 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 Patient's Eliquis was held at that time but orders to resume Eliquis after discharge. Patient denies melena or bright red bleeding per rectum. ? Continue Protonix 40 mg twice daily. Neuropathic pain: Cymbalta 60 mg p.o. daily Headache: Imitrex 50 mg as needed twice daily for headache not resolved by Tylenol. Mood disorder: BuSpar 5 mg p.o. 3 times daily, Risperdal 1 mg p.o. daily GERD: 40 mg p.o. daily Hypercholesterolemia: atorvastatin 40 mg p.o. daily BPH: Flomax 0.4 mL p.o. daily Anemia: ferrous sulfate 324 milligrams p.o. daily. Atrial fibrillation: Eliquis 5 mg p.o. twice daily-held for thoracentesis Full code VTE?SCDs N.p.o. Up with assist
--- NOTE | 2025-07-30 12:32 | US_ITS ---
PROCEDURE INFORMATION: Exam: IR Thoracentesis, Aspiration With Image Guidance Exam date and time: 07/30/2025 12:41 PM Age: 69 years old Clinical indication: Abnormal findings; Additional info: Pleural effusion TECHNIQUE: Imaging protocol: Radiology Procedure. Thoracentesis, needle or catheter, aspiration of the pleural space with imaging guidance. Concurrent real time US visualization of vascular needle entry. Permanent recording and reporting. COMPARISON: CR XR CHEST PORTABLE 07/30/2025 5:57 AM FINDINGS: Ultrasound guidance was provided during performance of an ultrasound-guided right thoracentesis by Dr. Valdez. Approximately 1720 mL of pleural fluid were reportedly removed. A single static image was submitted demonstrating right pleural fluid. Complications: Correlate with procedural notes for additional information. IMPRESSION: Status post ultrasound guided right thoracentesis with reported removal of 1720 mL of pleural fluid by Dr. Valdez. Correlate with procedural notes for additional detail information.
--- NOTE | 2025-07-30 13:31 | P.DS_ITS ---
<Statement entered by Jam Ledesma MD - 07/31/25 15:40> Agree with plan of care as outlined by the FINE ARTS TEACHER. General Admission date:: 07/28/25 Discharge date: 07/30/25 HPI HPI HPI: This is a 69-year-old male who has a past medical history significant for adenocarcinoma/lung cancer status post radiation/chemotherapy in remission, HFpEF, pleural effusion, cataracts, constipation, hypertension, hyperlipidemia, iron deficiency anemia, insomnia, mood disorder, BPH, atrial fibrillation, COPD, and coronary artery disease who presents with a chief complaint of shortness of breath and anxiety. Due to patient's symptoms, he presents emergency room via EMS. While in the emergency room, CTA of the chest revealed a right lower lobe opacity favor combination of pneumonia, tree-in-bud opacities in the periphery of the lower lobe keeping with bronchiolitis, and no evidence of filling defect to suggest pulmonary embolism. Patient did have right lower lobe pleural effusion his case was discussed with pulmonology who recommended to diurese patient. As a result, hospital medicine was consulted for further management. During my evaluation of patient, patient was somewhat confused. He did endorse having some shortness of air. Patient is currently denying any chest pain, lightheadedness, dizziness, fever, chills, rigors, nausea, dyspnea, diarrhea. Additional pertinent labs obtained including red blood cell count of 3.24, hemoglobin 8.5, hematocrit 29.6, neutrophils 91.5%, D-dimer 2.07, pCO2 of 71.1, bicarb 35, sodium 134, chloride 94, carbon oxide of 36, blood glucose of 200, BNP of 494, and albumin of 3.4. Hospital Course Hospital Course Hospital Course: Mr. Mckeon is a 69-year-old old male who resides at [facility] nursing facility. He has a past medical history of lung cancer status post radiation at [facility] (adenocarcinoma RLL 2022 status post SBRT), atrial fibrillation, COPD on 4 L of oxygen, hypertension, hyperlipidemia, BPH. Patient presents from shelter via ambulance with shortness of breath. Patient poor historian, and was unable to tell me that he came from [facility] at time of my bedside evaluation. Patient had thoracentesis today, removed greater than 1.7 L of fluid. Patient safe to discharge back to [facility], hospital course was as follows: #Right pleural effusion, recurrent #History of RLL adenocarcinoma s/p SBRT in remission #Chronic hypoxic respiratory failure, 4 L #Acute HFpEF #RV failure ? Presented with progressive shortness of breath, CTA chest on admission suggestive of right lower lobe pneumonia versus atelectasis with associated effusion. Initial WBC normal, on baseline 4 L. No signs of sepsis. ? Patient was recently admitted for similar presentation, sputum culture showing rare growth. He was empirically treated with vancomycin, Zosyn and discharged with Augmentin for total of 7 days. ? Discussed with pulmonology, low concern for infectious process. Patient was given Lasix 40 mg twice daily for improvement of pleural effusion, little imp rovement was seen, patient underwent thoracentesis where greater than 1.7 L of fluid was removed. Fluid sent off for cytology. Patient will follow-up with pulmonology in 1 to 2 weeks. Patient continues to be stable on 3-4 L nasal cannula, baseline. Will discharge home cefdinir 300 mg twice daily to complete 5 days. ? Of note, patient had recent stay at [facility] in [place] where he had a tho racentesis performed x 2 and a bronchoscopy FNA. Thoracentesis fluid showed no evidence of malignancy. Bronchoscopy was nondiagnostic. Per review of records from [facility] recommendations of follow-up PET scan. Attempts to find pleural study results unsuccessful. At this time, pleural effusion is presumed to be transudative at this time. ? ECHO June 2025 shows low normal LV systolic function, 50%. Moderately to severely dilated RV with moderate reduction in RV function, biatrial dilation, small size circumferential pericardial effusion. No evidence of tamponade on echo. ? CT abdomen/pelvis on 07/29/2025 suggested mild nodularity of liver contour suggesting possible cirrhosis, recurrent pleural effusion may be from this etiology. However, PT/INR, platelets, albumin relatively normal. ? Today, patient states he is feeling and breathing better. ? Continue Lasix 40 mg daily at discharge. ? Will need outpatient sleep study. Will refer to pulmonology. #COPD ? Currently stable. Continue Trelegy 100 inhaler. 3 L nasal cannula. #Acute on chronic anemia #History of bleeding AVMs #History of iron deficiency anemia ? Hemoglobin initially 8.5, stable today at 8.1. Will resume Eliquis 5 mg twice daily tomorrow. ? FOBT positive. ? Received records from [facility], patient had a hospital stay in March 2025 for GI bleed. 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 Patient's Eliquis was held at that time but orders to resume Eliquis after discharge. Patient denies melena or bright red bleeding per rectum. ? Continue Protonix 40 mg twice daily. Neuropathic pain: Cymbalta 60 mg p.o. daily Headache: Imitrex 50 mg as needed twice daily for headache not resolved by Tylenol. Mood disorder: BuSpar 5 mg p.o. 3 times daily, Risperdal 1 mg p.o. daily GERD: 40 mg p.o. daily Hypercholesterolemia: atorvastatin 40 mg p.o. daily BPH: Flomax 0.4 mL p.o. daily Anemia: ferrous sulfate 324 milligrams p.o. daily. Atrial fibrillation: Eliquis 5 mg p.o. twice daily-hold for 1 day, then continue. Total time spent on discharge 35 minutes in counseling, documentation, chart r eview, and direct care with patient. Exam Data for Last 24 hours Vital signs and Labs for Last 24 Hours: Temp Pulse Resp BP Pulse Ox O2 Del Method O2 Flow Rate 98.0 F 90 18 86/50 L 90 L Nasal Cannula 3 07/30/25 12:00 07/30/25 12:00 07/30/25 12:00 07/30/25 12:00 07/30/25 12:00 07/30/25 13:00 07/30/25 13:00 Laboratory Results - last 24 hr 07/29/25 08:40: C-Reactive Protein 44.1 H 07/29/25 17:24: Stool Occult Blood Positive A 07/30/25 01:15: Hgb 7.6 L, Hct 26.3 L 07/30/25 06:22: WBC 8.4, RBC 3.22 L, Hgb 8.1 L, Hct 29.3 L, MCV 91.0, MCH 25.2 L , MCHC 27.6 L, RDW 15.9, Plt Count 209, MPV 10.5 H, Neut % (Auto) 69.7, Lymph % (Auto) 11.9, [place] % (Auto) 13.5 H, Eos % (Auto) 4.1, Baso % (Auto) 0.6, Neut # (Auto) 5.9, Lymph # (Auto) 1.0, [place] # (Auto) 1.1 H, Eos # (Auto) 0.3, Baso # (Auto) 0.1, Sodium 139, Potassium 4.2 D, Chloride 96 L, Carbon Dioxide 39 H, Anion Gap 8.2, BUN 10, Creatinine 0.70, Estimated Creat Clear 75, Estimated GFR 112, Est GFR ( Amer) 136, Glucose 107 H D, Calcium 8.2 L, Magnesium 1.9, Total Bilirubin 0.4, AST 21, ALT 14, Alkaline Phosphatase 77, Total Protein 5.8 L, Albumin 3.0 L, Globulin 2.8, Albumin/Globulin Ratio 1.1 I & O for Last 24 hours: Intake & Output 07/27/25 07/28/25 07/29/25 07/30/25 23:59 23:59 23:59 23:59 Intake Total 150 / 150 250 / 250 Output Total 200 / 200 570 / 570 400 / 400 Balance -50 / -50 -320 / -320 -400 / -400 Weight 75.75 kg 75.342 kg 73.527 kg Constitutional Constitutional: no acute distress, average body habitus, chronically ill appearing and cooperative *Routine HEENT Exam Head: Present normocephalic Eye: Present EOMI and PERRL ENT: Present mucous membranes moist *Routine Neck Exam Neck: Present supple; Absent lymphadenopathy *Routine Respiratory Exam Respiratory: Present diminished air movement (Right lower lobe), normal respiratory effort and able to speak in complete sentences; Absent respiratory distress *Routine Cardiovascular Exam Cardiovascular: Present RRR *Routine Abdominal Exam Abdominal: Present soft and normoactive bowel sounds; Absent tenderness or distended *Routine Rectal Exam Patient deferred: visual exam *Routine Exam Patient deferred: penile exam *Routine Extremities Exam Extremities: Absent cyanosis, clubbing or edema *Routine Skin Exam Skin: Present intact, dry and warm; Absent rash *Routine Neurological Exam Neurological: Present alert, oriented X3, moving all extremities and normal speech Comments: Poor historian Routine Psychiatric Exam Comments: Flat affect Results Data Completed and Pending Labs on day of discharge: Labs from last 24 hours 07/30/25 07/30/25 07/29/25 06:22 01:15 17:24 WBC 8.4 RBC 3.22 L Hgb 8.1 L 7.6 L Hct 29.3 L 26.3 L MCV 91.0 MCH 25.2 L MCHC 27.6 L RDW 15.9 Plt Count 209 MPV 10.5 H Neut % (Auto) 69.7 Lymph % (Auto) 11.9 [place] % (Auto) 13.5 H Eos % (Auto) 4.1 Baso % (Auto) 0.6 Neut # (Auto) 5.9 Lymph # (Auto) 1.0 [place] # (Auto) 1.1 H Eos # (Auto) 0.3 Baso # (Auto) 0.1 Sodium 139 Potassium 4.2 D Chloride 96 L Carbon Dioxide 39 H Anion Gap 8.2 BUN 10 Creatinine 0.70 Estimated Creat Clear 75 Estimated GFR 112 Est GFR ( Amer) 136 Glucose 107 H D Calcium 8.2 L Magnesium 1.9 Total Bilirubin 0.4 AST 21 ALT 14 Alkaline Phosphatase 77 C-Reactive Protein Total Protein 5.8 L Albumin 3.0 L Globulin 2.8 Albumin/Globulin Ratio 1.1 Stool Occult Blood Positive A 07/29/25 08:40 WBC RBC Hgb Hct MCV MCH MCHC RDW Plt Count MPV Neut % (Auto) Lymph % (Auto) [place] % (Auto) Eos % (Auto) Baso % (Auto) Neut # (Auto) Lymph # (Auto) [place] # (Auto) Eos # (Auto) Baso # (Auto) Sodium Potassium Chloride Carbon Dioxide Anion Gap BUN Creatinine Estimated Creat Clear Estimated GFR Est GFR ( Amer) Glucose Calcium Magnesium Total Bilirubin AST ALT Alkaline Phosphatase C-Reactive Protein 44.1 H Total Protein Albumin Globulin Albumin/Globulin Ratio Stool Occult Blood DS: Diagnosis Discharge Diagnosis (1) Pleural effusion: Status: Acute Code(s): J90 - Pleural effusion, not elsewhere classified (2) Acute on chronic respiratory failure with hypoxia and hypercapnia: Status: Acute Code(s): J96.21 - Acute and chronic respiratory failure with hypoxia; J96.22 - Acute and chronic respiratory failure with hypercapnia (3) Iron deficiency anemia: Status: Acute Code(s): D50.9 - Iron deficiency anemia, unspecified Qualifiers: Iron deficiency anemia type: unspecified iron deficiency Qualified Code(s): D50.9 - Iron deficiency anemia, unspecified (4) History of lung cancer: Status: Acute Code(s): Z85.118 - Personal history of other malignant neoplasm of bronchus and lung (5) History of GI bleed: Status: Acute Code(s): Z87.19 - Personal history of other diseases of the digestive system (6) Heart failure: Status: Acute Code(s): I50.9 - Heart failure, unspecified (7) Pleural effusion: Status: Acute Code(s): J90 - Pleural effusion, not elsewhere classified (8) HTN (hypertension): Status: Acute Code(s): I10 - Essential (primary) hypertension Qualifiers: Hypertension type: primary hypertension Qualified Code(s): I10 - Essential (primary) hypertension (9) Depressive disorder: Status: Acute Code(s): F32.A - Depression, unspecified (10) Hyperlipemia: Status: Acute Code(s): E78.5 - Hyperlipidemia, unspecified Qualifiers: Hyperlipidemia type: mixed hyperlipidemia Qualified Code(s): E78.2 - Mixed hyperlipidemia Meds Home Medications and Allergies Home Medications ?Medication ?Instructions ?Recorded ?Confirmed ?Type albuterol sulfate 2.5 mg/0.5 mL 2.5 mg inhalation Q6HP PRN 06/11/25 07/28/25 History solution for nebulization Shortness Of Breath apixaban 5 mg tablet (Eliquis) 5 mg PO BID 06/11/25 History atorvastatin 40 mg tablet (Lipitor) 40 mg PO HS 07/28/25 History docusate sodium 100 mg capsule 100 mg PO BID 06/11/25 07/28/25 History duloxetine 60 mg capsule,delayed 60 mg PO DAILY 07/28/25 History release ferrous sulfate 324 mg (65 mg 324 mg PO DAILY 06/11/25 07/28/25 History iron) tablet,delayed release melatonin 3 mg capsule 6 mg PO HS 06/11/25 07/28/25 History metoprolol tartrate 25 mg tablet 25 mg PO BID 06/11/25 07/28/25 History pantoprazole 40 mg tablet,delayed 40 mg PO BID 5 07/28/25 History release (Protonix) prednisone 10 mg tablet 10 mg PO DAILY 06/11/25 1202/14 History tamsulosin 0.4 mg capsule (Flomax) 0.4 mg PO DAILY 07/28/25 History ascorbic acid (vitamin C) 500 mg 500 mg PO DAILY 07/0107/28/25 History tablet buspirone 5 mg tablet 5 mg PO TID 07/01/25 5 History fluticasone fur. 200 mcg-umeclid 1 inh inhalation LUIS Y 07/01/25 07/28/25 History 62.5 mcg-vilant 25 mcg inhalat.powder (Trelegy Ellipta) oxycodone 5 mg tablet 5 mg PO Q8HP PRN Moderate Pa in 07/01/25 07/28/25 History (Scale Score 5-6) risperidone 1 mg tablet 1 mg PO DAILY 07/01/2507/28 History furosemide 40 mg tablet 40 mg PO DAILY 07/12/2502/14 History polyethylene glycol 3350 17 17 g PO DAILY PRN constipa tion 07/24/25 07/28/25 Rx gram/dose oral powder (Miralax) #510 grams cefdinir 300 mg capsule 300 mg PO BID #10 caps 07/30 Rx New Prescriptions to Start Prescriptions: [place] Allergies Allergy/AdvReac Type Severity Reaction Status Date / Time diclofenac Allergy Unknown Unknown Verified 07/24/25 12:13 allergy reaction Discharge Plan Disposition Patient Disposition: er Intermediate Care Fac Condition: Fair Discharge Order Discharge Orders: Discharge Order (Routine); Ordered 07/30/25 Ordered By: Linn Bradley Follow up Plan Follow up with: Austen Valdez MD [Physician, Pulmonology] - Enter time for follow up Brennen Heredia MD [Primary Care Provider, Family Practice] - Enter time for follow up Prescriptions/Medication Reconciliation: New cefdinir 300 mg capsule 300 mg PO BID Qty: 10 0RF Continued furosemide 40 mg tablet 40 mg PO DAILY polyethylene glycol 3350 [Miralax] 17 gram/dose powder 17 g PO DAILY PRN (Reason: constipation) Qty: 510 0RF atorvastatin [Lipitor] 40 mg tablet 40 mg PO HS prednisone 10 mg tablet 10 mg PO DAILY tamsulosin [Flomax] 0.4 mg capsule 0.4 mg PO DAILY pantoprazole [Protonix] 40 mg tablet,delayed release (DR/EC) 40 mg PO BID docusate sodium 100 mg capsule 100 mg PO BID metoprolol tartrate 25 mg tablet 25 mg PO BID albuterol sulfate 2.5 mg/0.5 mL solution for nebulization 2.5 mg inhalation Q6HP PRN (Reason: Shortness Of Breath) duloxetine 60 mg capsule,delayed release(DR/EC) 60 mg PO DAILY Eliquis 5 mg tablet 5 mg PO BID melatonin 3 mg capsule 6 mg PO HS ferrous sulfate 324 mg (65 mg iron) tablet,delayed release (DR/EC) 324 mg PO DAILY buspirone 5 mg tablet 5 mg PO TID Trelegy Ellipta 200-62.5-25 mcg blister with device 1 inh INHALATION DAILY ascorbic acid (vitamin C) 500 mg Tablet 500 mg PO DAILY risperidone 1 mg Tablet 1 mg PO DAILY oxycodone 5 mg Tablet 5 mg PO Q8HP PRN (Reason: Moderate Pain (Scale Score 5-6)) Problem Reconciliation Problems Reviewed?: Yes Patient Discharge Instructions ACTIVITY: Continue current activity and No heavy lifting DIET: continue same diet Patient Instructions: DI for Pleural Effusion, Stop Light COPD, Stop Light Heart Failure Print Language: Ethiopian Providers Primary Care Provider: Brennen Heredia Admit Provider: Jam Ledesma Attending Provider: Jam Ledesma
--- NOTE | 2025-07-30 13:34 | P.PCN_ITS ---
[facility] Procedure Note Date: 07/30/25 Time: 13:35 Procedure Note:: Procedure: Right thoracentesis Indication for procedure: Pleural Effusion, Hypoxic Respiratory failure A time out was performed, and the chest x-ray was reviewed, the appropriate side was confirmed and marked. My hands were washed immediately prior to the procedure. I wore a surgical cap, mask with protective eyewear, sterile gown, and sterile gloves throughout the procedure. The patient was prepped and draped in a sterile manner using chlorhexidine scrub after the appropriate level was percussed and confirmed by ultrasound. 1% lidocaine was used to anesthetize the skin, subcutaneous tissue, superior aspect of the rib periosteum and parietal pleura. A finder needle was then introduced at the seventh intercoastal space posteriorly to locate the pleural fluid; straw-colored fluid was aspirated. A 1 0-blade scalpel was used to saundra the skin at the insertion site. The [id number]-[id number] needle was then introduced through the skin incision into the pleural space using negative aspiration pressure and the red colorimetric indicator to confirm appropriate positioning of the needle. The thoracentesis catheter was then threaded without difficulty. 1720 ml of fluid was removed without difficulty. The catheter was then removed. No immediate complications were noted during the procedure. A post-procedure chest X-ray is pending at the time of this note. The fluid will be sent for routine pleural studies, cultures along with cytopathology. Patient tolerated the procedure well Estimated blood loss is 5cc.
--- NOTE | 2025-07-30 13:35 | XR_ITS ---
PROCEDURE INFORMATION: Exam: XR Chest Exam date and time: 07/30/2025 1:31 PM Age: 69 years old Clinical indication: Device placement; Other: Post thoracentesis TECHNIQUE: Imaging protocol: Radiologic exam of the chest. Views: 1 view. COMPARISON: CR XR CHEST PORTABLE 07/30/2025 5:57 AM FINDINGS: Tubes, catheters and devices: Stable surgical clip or biopsy marker overlying the right lung base. Airway: Airways are patent. Lungs: Patchy consolidation in the right lung base is most probably related to atelectasis. Remainder of the lungs are clear. Pleural spaces: Significant improvement to near complete resolution of the right pleural effusion status post thoracentesis. Left costophrenic angle is clear. There is no evidence of pneumothorax. Heart/Mediastinum: Mild cardiomegaly. Vasculature: Calcified aortic knob. Bones/joints: No acute skeletal abnormality or aggressive osseous lesion. Stable chronic osseous remodeling/nonunited chronic fracture of the distal left clavicle. IMPRESSION: 1. Significant improvement to near complete resolution of the right pleural effusion status post thoracentesis. 2. Patchy consolidation in the right lung base is most probably related to atelectasis. Superimposed infectious pneumonic process should be entertained in the appropriate clinical setting.
[2025-07-30] MEDS: AZITHROMYCIN 500 MG in 0.9 % SODIUM CHLORIDE 250 ML 250 MG IV (13:47)
[2025-07-30 13:56] LABS: Appearance,Body Fld. Slightly hazy; RBC,Body Fluid 3000 cells/uL (< 10 X 10^3); Source, Body Fld. Pleural Fluid; TNC,Body Fluid 516 cells/uL (< 1000); Volume,Body Fld. 1720 mL
--- NOTE | 2025-07-30 13:58 | HMH.OTEV ---
OT Evaluation Rehab OT IP Evaluation Start: 07/28/25 17:13 Freq: ONCE Status: Active Protocol: Document 07/30/25 13:54 [facility] (Rec: 07/30/25 13:58 [facility] [id number]) Rehab OT IP Assessment Subjective History Per H&P: This is a 69-year-old male who has a past medical history significant for adenocarcinoma/ lung cancer status post radiation/chemotherapy in remission, HFpEF, pleural effusion, cataracts, constipation, hypertension, hyperlipidemia, iron deficiency anemia, insomnia, mood disorder, BPH, atrial fibrillation, COPD, and coronary artery disease who presents with a chief complaint of shortness of breath and anxiety. Due to patient's symptoms, he presents emergency room via EMS. While in the emergency room, CTA of the chest revealed a right lower lobe opacity favor combination of pneumonia, tree-in-bud opacities in the periphery of the lower lobe keeping with bronchiolitis, and no evidence of filling defect to suggest pulmonary embolism. Patient did have right lower lobe pleural effusion his case was discussed with pulmonology who recommended to diurese patient. As a result, hospital medicine was consulted for further management. During my evaluation of patient, patient was somewhat confused. He did endorse having some shortness of air. Patient is currently denying any chest pain, lightheadedness, dizziness, fever, chills, rigors, nausea, dyspnea, diarrhea. Additional pertinent labs obtained including red blood cell count of 3.24, hemoglobin 8.5, hematocrit 29.6, neutrophils 91.5%, D- dimer 2.07, pCO2 of 71.1, bicarb 35, sodium 134, chloride 94, carbon oxide of 36, blood glucose of 200, BNP of 494, and albumin of 3.4. Subjective Pt oriented x 2. However pt not oriented to place. Pt claims he still lives alone and is independent with all ADLS. 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 Therefore information provided by patient is not trustworthy due to him being a poor historian. Pt does report he is able to walk with rolling walker. Objective Patient Orientation Person,Birthday Right Upper WFL Extremity Gross ROM Left Upper Extremity WFL Gross ROM Bed Mobility bed mobility-scooting,bed mobility - supine/sit Assist Level Supervision/Stand by Transfer Training Sit/Stand Transfer Assist Level Supervision/Stand by Chair Transfer Sit to/from Ambulatory Technique Chair Transfer Rolling Walker Assistive Devices Rehab OT IP prob,goals,plan Problems Date of Evaluation: 07/30/25 Rehab Potential Rehab Potential Innapropriate for Skilled Therapy Discharge Plan OT Discharge Plan Pt appears to be at his baseline with functional transfers and ADL independence. Pt can return back to [facility] for continued vermin exterminator care once he is medically stable per physician. Eval Complexity Eval Charge Codes 73990 - Moderate Complexity PHYSICIAN CERTIFICATION: I certify the specified therapy services for Javy Mckeon are required, authorized, and reviewed every 30 days.
[2025-07-30 14:35] LABS: Mononuclear WBCs,Body Fluid 55 %; Polynuclear WBC,Body Fluid 45 %
[2025-07-30 15:05] VITALS: BMI 22.6
[2025-07-30] MEDS: ONDANSETRON 4MG/2ML VIAL 4 MG IV (15:27)
[2025-07-30 16:00] VITALS: BP 123/66; PULSE 98; RESP 18; TEMP 36.8; O2SAT 96
[2025-07-30 18:28] VITALS: O2SAT 94
[2025-07-31 14:27] LABS: Albumin, Body Fluid 2.0 g/dL (Not Estab.); Glucose, Body Fluid 126 mg/dL (.); LD, Body Fluid 271 IU/L (.)
== END 2025-07-30 19:00 ==
LOC: ER 16:09 → 2ND 16:12
PROVIDERS: Internal Medicine Pulmonary Disease; Nurse Practitioner Family; Physician Assistant Surgical; Admitting Provider Student in an Organized Health Care Education/Training Program; Emergency Provider Student in an Organized Health Care Education/Training Program; PCP Family Medicine; Visit Provider Student in an Organized Health Care Education/Training Program
DX: J90 Pleural effusion, not elsewhere classified (principal); A41.9 Sepsis, unspecified organism; J18.9 Pneumonia, unspecified organism; J96.21 Acute and chronic respiratory failure with hypoxia; J96.22 Acute and chronic respiratory failure with hypercapnia; D50.9 Iron deficiency anemia, unspecified; R73.9 Hyperglycemia, unspecified; E87.20 Acidosis, unspecified; Z85.118 Personal history of other malignant neoplasm of bronchus and lung; Z87.19 Personal history of other diseases of the digestive system; F32.A Depression, unspecified; E78.2 Mixed hyperlipidemia; I48.91 Unspecified atrial fibrillation; I50.30 Unspecified diastolic (congestive) heart failure; N40.0 Benign prostatic hyperplasia without lower urinary tract symptoms; I25.10 Atherosclerotic heart disease of native coronary artery without angina pectoris; I11.0 Hypertensive heart disease with heart failure; Z90.49 Acquired absence of other specified parts of digestive tract; Z95.1 Presence of aortocoronary bypass graft; Z88.6 Allergy status to analgesic agent; Z79.899 Other long term (current) drug therapy; J44.9 Chronic obstructive pulmonary disease, unspecified; Z87.891 Personal history of nicotine dependence; J98.11 Atelectasis; R91.1 Solitary pulmonary nodule; R00.0 Tachycardia, unspecified; I49.3 Ventricular premature depolarization
CPT/HCPCS: 32555; 36415; 71045; 71275; 74177; 80053; 80061; 82042; 82272; 82803; 82945; 83605; 83615; 83735; 83880; 84145; 84157; 84439; 84484; 85007; 85014; 85018; 85025; 85027; 85378; 85610; 86140; 86803; 87389; 87522; 88112; 88305; 89051; 93005; 94640; 94761; 97162; 97166; 99285; G0328; G0378; J0456; J0696; J1650; J1938; J2405; J7050; Q9967

== ENCOUNTER 2025-08-01 10:29 | Outpatient (CLI) | payer MEDICARE, MEDICAID, SELFPAY ==
[2025-08-01 11:01] LABS: Hematocrit 27.7 % (42.0-52.0); Hemoglobin 7.8 g/dL (14.1-18.0); Immature Granulocytes % 0.3 %; Mean Corpuscular HGB Conc 28.2 g/dL (31.8-35.4); Mean Corpuscular Hemoglobin 25.2 pg (27.0-31.2); Mean Corpuscular Volume 89.6 fl (80-94); Nucleated Red Blood Cells % 0 %; Platelet Count 247 K/mm3 (142-424); Red Blood Count 3.09 M/mm3 (4.60-6.20); Red Cell Distribution Width-SD 52.5 fL; White Blood Count 10.4 K/mm3 (4.8-10.8)
== END 2025-08-01 23:59 | disposition home or self-care (01) ==
LOC: LAB.DROPOF 10:29
PROVIDERS: PCP Family Medicine; Visit Provider Family Medicine
DX: D50.9 Iron deficiency anemia, unspecified (principal)
CPT/HCPCS: 36415; 85025

== ENCOUNTER 2025-08-07 08:59 | Outpatient (CLI) | payer MEDICARE, MEDICAID, SELFPAY ==
--- OUTSIDE RECORDS SUMMARY | 2025-08-07 09:04 | XMS_ITS | Clinical Summary ---
Author Organization [facility] Address [address] [place] [address] Phone Care Team Providers Care Coal Loader Name Role Phone Unavailable Unavailable Conditions or Problems No information available. Medications No information available. Medications Administered No information available. Allergies, Adverse Reactions, Alerts No information available. Results No information available. Plan of Care No information available. Procedures No information available. Vital Signs No information available. Immunizations No information available. Advance Directives No information available.
[2025-08-07] MEDS: IRON SUCROSE COMPLEX 100 MG in 0.9 % SODIUM CHLORIDE 100 ML 210 MG IV (09:23)
[2025-08-07 09:35] VITALS: BP 109/62; PULSE 69; RESP 20; O2SAT 98
[2025-08-07] MEDS: SODIUM CHLORIDE 0.9% 10ML FLUSH SYRINGE 10 ML IV (10:00)
[2025-08-07 10:05] VITALS: BP 110/64; PULSE 75
== END 2025-08-07 23:59 | disposition home or self-care (01) ==
LOC: INF 09:01
PROVIDERS: PCP Family Medicine; Visit Provider Internal Medicine Medical Oncology
DX: D50.9 Iron deficiency anemia, unspecified (principal)
CPT/HCPCS: 96365; J1756

== ENCOUNTER 2025-08-14 08:33 | Outpatient (CLI) | payer MEDICARE, MEDICAID, SELFPAY ==
--- NOTE | 2025-08-14 | CA_ITS ---
APPROVED REPORT Exam: Pharmacologic Technologist: Marie Funk Stress Nurse: Nusrat ARGUELLO, RN Ht: 6 ft 1 in Wt: 261 lbs BSA: 2.41 m2 HR: 81 bpm BP: 113/65 mmHg Indications: Rule out ischemia, chest pain, shortness of breath, known coronary artery disease. Stress Test Details Test: Lexiscan HR Resting HR: 81 bpm Max Heart Rate (APMHR): 153.646877 bpm Max HR Achieved: 91 bpm Target HR (85% APMHR): 130.708947 bpm % of APMHR: 59.48 Recovery HR: 89 bpm BP Resting BP: 113.0/65.0 mmHg Max BP: 123.0/63.0 mmHg Recovery BP: 110.0/65.0 mmHg ECG Resting ECG: Sinus rhythm Stress ECG Conclusion Lungs clear to auscultation prior to test start. Symptoms: Mild dyspnea Arrhythmias/Ectopy: PVC/PAC ST-T Changes: Less than 0.[address] segment changes. Conclusion: Nondiagnostic ECG/Lexiscan Electronically signed by : Yana Lee MD 08/15/2025 21:11:20
--- OUTSIDE RECORDS SUMMARY | 2025-08-14 08:35 | XMS_ITS | Clinical Summary ---
Author Organization [facility] Address [address] [place] [address] Phone Care Team Providers Care Veterinary Parasitologist Name Role Phone Unavailable Unavailable Conditions or Problems No information available. Medications No information available. Medications Administered No information available. Allergies, Adverse Reactions, Alerts No information available. Results No information available. Plan of Care No information available. Procedures No information available. Vital Signs No information available. Immunizations No information available. Advance Directives No information available.
[2025-08-14 08:53] VITALS: BP 122/53; PULSE 74; RESP 14; TEMP 36.5; O2SAT 99
[2025-08-14] MEDS: SODIUM CHLORIDE 0.9% 10ML FLUSH SYRINGE 10 ML IV (08:53)
[2025-08-14] MEDS: IRON SUCROSE COMPLEX 100 MG in 0.9 % SODIUM CHLORIDE 100 ML 220 MG IV (08:53)
[2025-08-14 09:30] VITALS: BP 108/52; PULSE 76; RESP 14; O2SAT 99
--- NOTE | 2025-08-14 12:30 | NM_ITS ---
APPROVED REPORT Exam: Nuclear Stress Test Indication: soa Patient Location: Outpatient Stress Tech: Marie Funk NM Tech:Alison KellyDAVIDT, RT (R)(N) Ht: 5 ft 11 in Wt: 261 lbs HR: 78 bpm BP: 113/65 mmHg BSA: 2.36 m2 TID: 1.11 BMI: 36.3 History: soa Procedure: Patient received 0.4 mg of intravenous Lexiscan, resting heart rate 78 bpm, resting blood pressure 113/65 mmHg, with Lexiscan maximum heart rate achieved was 91 bpm which is 85 % of the maximum predicted heart rate and blood pressure was 123/63 mmHg. With Lexiscan, patient denied any complaint of chest pain. The patient was not able to lay on his abdomen for prone images. Cardiac Stress and Resting SPECT Images: Cardiac Stress and Resting SPECT images were obtained using technetium 99m Myoview 31.1 mCi stress and 10.81 mCi at rest. The patient could not lie on his abdomen. Therefore, prone stress imaging could not be performed. This may affect diagnostic interpretation of the study findings. Resting and stress imaging in supine positions demonstrate a large sized, moderate, predominantly reversible perfusion defect in the inferior, lateral, and inferolateral LV salvador. Gated imaging demonstrates low normal global LV systolic function. LVEF is calculated at 51%. Conclusion: Large sized, moderate, predominantly reversible perfusion defect in the inferior, lateral, and inferolateral LV salvador. Findings are suggestive of reversible ischemia. Gated imaging demonstrates low normal global LV systolic function. LVEF is calculated at 51%. Electronically signed by : Yana Lee MD 08/15/2025 21:10:04
[2025-08-14 14:35] VITALS: BP 113/65; PULSE 81; RESP 16
[2025-08-14] MEDS: ISOTOPE MYOVIEW (PER STUDY) 1 DOSE IV (15:06)
[2025-08-14] MEDS: SODIUM CHLORIDE 0.9% 10ML SYR (RAD ONLY) 10 ML IV ×2 (15:06)
== END 2025-08-14 23:59 | disposition home or self-care (01) ==
LOC: INF 08:34
PROVIDERS: PCP Family Medicine; Visit Provider Family Medicine
DX: D50.9 Iron deficiency anemia, unspecified (principal); I25.118 Atherosclerotic heart disease of native coronary artery with other forms of angina pectoris
CPT/HCPCS: 78452; 93017; 93018; 96365; A9502; J1756; J2785

== ENCOUNTER 2025-08-20 03:05 | Emergency (ER) | payer MEDICARE, MEDICAID, SELFPAY ==
[2025-08-20] VITALS (8 sets, daily range): BP systolic 107–126; BP diastolic 64–81; PULSE 78–93; RESP 16–18; TEMP 36.6–36.7; O2SAT 95–99; BMI 15.5
--- NOTE | 2025-08-20 03:00 | CT_ITS ---
PROCEDURE INFORMATION: Exam: CT Lumbar Spine Without Contrast Exam date and time: 08/20/2025 3:40 AM Age: 69 years old Clinical indication: Injury or trauma; Fall; Blunt trauma (contusions or hematomas) TECHNIQUE: Imaging protocol: Computed tomography of the lumbar spine without contrast. Radiation optimization: All CT scans at this facility use at least one of these dose optimization techniques: automated exposure control; mA and/or kV adjustment per patient size (includes targeted exams where dose is matched to clinical indication); or iterative reconstruction. COMPARISON: CT THORACIC SPINE WO CON 08/20/2025 3:36 AM FINDINGS: Bones/joints: No acute fracture. Normal alignment. Mild chronic compression deformity of the vertebral body of L1 with maximum anterior loss of height of approximately 20%. Disc desiccation uncovertebral endplate erosions.. No disc herniation. No severe spinal canal stenosis. No significant neural foraminal narrowing. Soft tissues: Unremarkable. IMPRESSION: 1. No acute lumbar spine fracture. 2. Degenerative changes.
--- NOTE | 2025-08-20 03:03 | CT_ITS ---
PROCEDURE INFORMATION: Exam: CT Abdomen And Pelvis Without Contrast Exam date and time: 08/20/2025 3:43 AM Age: 69 years old Clinical indication: Injury or trauma; Fall; Blunt; Generalized TECHNIQUE: Imaging protocol: Computed tomography of the abdomen and pelvis without contrast. Radiation optimization: All CT scans at this facility use at least one of these dose optimization techniques: automated exposure control; mA and/or kV adjustment per patient size (includes targeted exams where dose is matched to clinical indication); or iterative reconstruction. COMPARISON: CT ABDOMEN PELVIS W CON 07/29/2025 11:17 AM FINDINGS: Lungs: Right lower lobe collapse and moderate right-sided pleural effusion. Liver: The liver is of normal size with no evidence of intrahepatic biliary dilatation or focal lesions. Gallbladder and biliary ducts: Status post cholecystectomy. No biliary dilatation. Pancreas: No focal lesions, inflammatory changes or ductal dilatation. Spleen: Intact with no focal lesions. No splenomegaly. Adrenal glands: Normal. No mass. Kidneys and ureters: No hydronephrosis or nephrolithiasis. Renal vascular calcifications. Stomach and bowel: No obstruction. No mucosal thickening. Sigmoid diverticulosis. Appendix: No evidence of appendicitis. Intraperitoneal space: No free air. No significant fluid collection. Vasculature: No abdominal aortic aneurysm. Calcified atheromatous changes of the regional vasculature. Lymph nodes: No enlarged lymph nodes. Urinary bladder: Unremarkable as visualized. Reproductive: Unremarkable as visualized. Bones/joints: No acute fracture. Status post ORIF of the left hip. Soft tissues: Unremarkable. IMPRESSION: 1. No evidence of traumatic injury to the abdomen or pelvis. 2. Sigmoid diverticulosis. 3. Right lower lobe collapse and moderate right-sided pleural effusion. Underlying pathology can not be excluded.
--- NOTE | 2025-08-20 03:03 | CT_ITS ---
PROCEDURE INFORMATION: Exam: CT Thoracic Spine Without Contrast Exam date and time: 08/20/2025 3:36 AM Age: 69 years old Clinical indication: Injury or trauma; Fall; Blunt trauma (contusions or hematomas) TECHNIQUE: Imaging protocol: Computed tomography of the thoracic spine without contrast. Radiation optimization: All CT scans at this facility use at least one of these dose optimization techniques: automated exposure control; mA and/or kV adjustment per patient size (includes targeted exams where dose is matched to clinical indication); or iterative reconstruction. COMPARISON: CT CERVICAL SPINE WO CON 08/20/2025 3:34 AM FINDINGS: Bones/joints: Diffuse osteopenia. No acute fracture. Normal alignment. Mild chronic wedge-shaped compression deformities of the vertebral bodies of C7 through L1. Diffuse disc desiccation and vertebral endplate erosions. No evidence of disc herniation. No severe spinal canal stenosis. No significant neural foraminal narrowing. Soft tissues: Unremarkable. Pleural spaces: Large right-sided pleural effusion and right lower lobe atelectasis. IMPRESSION: 1. No acute thoracic spine fracture or traumatic listhesis. 2. Diffuse osteopenia of the regional bones. 3. Mild chronic wedge-shaped compression deformities of the vertebral bodies of C7 through L1. 4. Degenerative changes as described above. 5. Large right-sided pleural effusion and right lower lobe atelectasis.
--- NOTE | 2025-08-20 03:03 | CT_ITS ---
PROCEDURE INFORMATION: Exam: CT Head Without Contrast Exam date and time: 08/20/2025 3:24 AM Age: 69 years old Clinical indication: Injury or trauma; Fall; Blunt trauma (contusions or hematomas) TECHNIQUE: Imaging protocol: Computed tomography of the head without contrast. Radiation optimization: All CT scans at this facility use at least one of these dose optimization techniques: automated exposure control; mA and/or kV adjustment per patient size (includes targeted exams where dose is matched to clinical indication); or iterative reconstruction. COMPARISON: No relevant prior studies available. FINDINGS: Brain: Chronic microvascular ischemic disease without acute intraparenchymal hemorrhage and no obvious acute ischemic stroke. No intra-or extra-axial fluid collection, no supra-or infratentorial mass, no mass effect or midline shift. Cerebral ventricles: Mildly dilated ventricles, sulci and basal cisterns without evidence of hydrocephalus. Paranasal sinuses: [id number] mucoperiosteal thickening in the visualized paranasal sinuses. Mastoid air cells: No mastoid effusion. Bones: Visualized skull bones are grossly normal. Soft tissues: NA IMPRESSION: 1. Chronic microvascular ischemic disease and generalized atrophy without acute intracranial abnormality. 2. No evidence of acute hemorrhage, mass lesion or obvious acute ischemic infarction.
--- NOTE | 2025-08-20 03:03 | CT_ITS ---
PROCEDURE INFORMATION: Exam: CT Cervical Spine Without Contrast Exam date and time: 08/20/2025 3:34 AM Age: 69 years old Clinical indication: Injury or trauma; Fall; Blunt trauma TECHNIQUE: Imaging protocol: Computed tomography of the cervical spine without contrast. Radiation optimization: All CT scans at this facility use at least one of these dose optimization techniques: automated exposure control; mA and/or kV adjustment per patient size (includes targeted exams where dose is matched to clinical indication); or iterative reconstruction. COMPARISON: CT HEAD/BRAIN WO CON 08/20/2025 3:24 AM FINDINGS: Bones: Normal curvature of the spine, alignment of the vertebral bodies is grossly normal.Coarse bony trabecular pattern suggestive of diffuse osteopenia. No evidence of acute compression fracture or deformity. No discernible displaced fracture involving the vertebral bodies or their posterior elements. Discs/Spinal canal/Neural foramina: Moderately advanced chronic degenerative changes in the cervical spine. Lungs: Scarring/pleural thickening in the lung apices and RIGHT apical pleural effusion. Soft tissues: Pre-and paravertebral soft tissues are grossly normal. Atherosclerotic calcification of the carotid arteries. IMPRESSION: Moderately advanced chronic degenerative changes without an acute bony cervical spine injury or abnormality. COMMENTS: Recommend followup with MRI if clinically suspicion for discoligamentous/soft tissue or cord abnormality.
--- NOTE | 2025-08-20 03:03 | CT_ITS ---
PROCEDURE INFORMATION: Exam: CT Chest Without Contrast; Diagnostic Exam date and time: 08/20/2025 3:38 AM Age: 69 years old Clinical indication: Injury or trauma; Fall; Blunt trauma (contusions or hematomas) TECHNIQUE: Imaging protocol: Diagnostic computed tomography of the chest without contrast. Radiation optimization: All CT scans at this facility use at least one of these dose optimization techniques: automated exposure control; mA and/or kV adjustment per patient size (includes targeted exams where dose is matched to clinical indication); or iterative reconstruction. COMPARISON: CT ANGIO CHEST PE PROTOCOL 07/28/2025 3:19 PM FINDINGS: Lungs: Right lower lobe collapse. The remaining portions of the right lung and left lung are otherwise well oriented. Pleural spaces: Moderate right-sided pleural effusion. No pneumothorax. Heart: No cardiomegaly. No pericardial effusion. Coronary artery calcifications. Lymph nodes: Unremarkable. No enlarged lymph nodes. Vasculature: Unremarkable. No aortic aneurysm. Bones/joints: No acute fracture. Soft tissues: Unremarkable. IMPRESSION: 1. Right lung lower lobe collapse of unclear etiology. Underlying pathology can not be excluded. 2. Right-sided moderate pleural effusion.
--- NOTE | 2025-08-20 03:10 | HMH.EDGENADL ---
Discharge Plan Disposition Chief Complaint: Fall Prescriptions Prescriptions: No Action furosemide 40 mg tablet 40 mg PO DAILY polyethylene glycol 3350 [Miralax] 17 gram/dose powder 17 g PO DAILY PRN (Reason: constipation) Qty: 510 0RF atorvastatin [Lipitor] 40 mg tablet 40 mg PO HS prednisone 10 mg tablet 10 mg PO DAILY tamsulosin [Flomax] 0.4 mg capsule 0.4 mg PO DAILY pantoprazole [Protonix] 40 mg tablet,delayed release (DR/EC) 40 mg PO BID docusate sodium 100 mg capsule 100 mg PO BID metoprolol tartrate 25 mg tablet 25 mg PO BID albuterol sulfate 2.5 mg/0.5 mL solution for nebulization 2.5 mg inhalation Q6HP PRN (Reason: Shortness Of Breath) duloxetine 60 mg capsule,delayed release(DR/EC) 60 mg PO DAILY Eliquis 5 mg tablet 5 mg PO BID melatonin 3 mg capsule 6 mg PO HS ferrous sulfate 324 mg (65 mg iron) tablet,delayed release (DR/EC) 324 mg PO DAILY lorazepam [Ativan] 0.5 mg tablet 0.5 mg PO TID PRN (Reason: anxiety) Qty: 90 0RF buspirone 10 mg tablet 20 mg PO TID Qty: 90 3RF oxycodone 5 mg tablet 5 mg PO Q8HP PRN (Reason: Moderate Pain (Scale Score 5-6)) Qty: 90 0RF Trelegy Ellipta 200-62.5-25 mcg blister with device 1 inh INHALATION DAILY ascorbic acid (vitamin C) 500 mg Tablet 500 mg PO DAILY risperidone 1 mg Tablet 1 mg PO DAILY Referrals Follow up/Referrals: Brennen Heredia MD [Primary Care Provider, Family Practice] - See instructions Activity Restrictions/Add. Instructions Additional Instructions/Restrictions: No evidence of acute traumatic injury on CT scans. Multiple chronic findings noted. Please follow-up with your primary care provider. Please return to the emergency department if you develop any new or worsening symptoms or become concerned for your health. Clinical Impressions Clinical Impression: Back pain, Fall Print Language Print Language: Malagasy Discharge ED Provider: Clem Ko Adult HPI General Chief complaint: Fall Stated complaint: Fall Time Seen by Provider: 08/20/25 03:10 Mode of Arrival: EMS Source of Information: Patient and EMS Description of Symptoms (Recalled from ER Triage Doc. by RN): Nursing facilty and EMS reported a witnessed fall, pt reportedly slid out of his wheelchair onto his butt. pt did not hit his head or LOC History of Present Illness HPI narrative: 69-year-old male with extensive past medical history presents from nursing facility after a witnessed fall. He slid out of his wheelchair onto his butt. He did not hit his head or lose consciousness. Patient is a poor historian. He primarily reports back pain in the low back area. Related Data Home Medications ?Medication ?Instructions ?Recorded ?Confirmed albuterol sulfate 2.5 mg/0.5 mL 2.5 mg inhalation Q6HP PRN 06/11/25 08/13/25 solution for nebulization Shortness Of Breath apixaban 5 mg tablet (Eliquis) 5 mg PO BID 06/11/25 08/13/25 atorvastatin 40 mg tablet (Lipitor) 40 mg PO HS 06/11/25 08/13/25 docusate sodium 100 mg capsule 100 mg PO BID 06/11/25 08/13/25 duloxetine 60 mg capsule,delayed 60 mg PO DAILY 06/11/25 08/13/25 release ferrous sulfate 324 mg (65 mg 324 mg PO DAILY 06/11/25 08/13/25 iron) tablet,delayed release melatonin 3 mg capsule 6 mg PO HS 06/11/25 08/13/25 metoprolol tartrate 25 mg tablet 25 mg PO BID 06/11/25 08/13/25 pantoprazole 40 mg tablet,delayed 40 mg PO BID 06/11/25 08/13/25 release (Protonix) prednisone 10 mg tablet 10 mg PO DAILY 06/11/25 08/13/25 tamsulosin 0.4 mg capsule (Flomax) 0.4 mg PO DAILY 06/11/25 08/13/25 ascorbic acid (vitamin C) 500 mg 500 mg PO DAILY 07/01/25 08/13/25 tablet fluticasone fur. 200 mcg-umeclid 1 inh inhalation DAILY 07/01/25 08/13/25 62.5 mcg-vilant 25 mcg inhalat.powder (Trelegy Ellipta) risperidone 1 mg tablet 1 mg PO DAILY 07/01/25 08/13/25 furosemide 40 mg tablet 40 mg PO DAILY 07/12/25 08/13/25 Previous Rx's ?Medication ?Instructions ?Recorded polyethylene glycol 3350 17 17 g PO DAILY PRN constipation 07/24/25 gram/dose oral powder (Miralax) #510 grams buspirone 10 mg tablet 20 mg (2 x 10 mg) PO TID #90 tabs 08/18/25 lorazepam 0.5 mg tablet (Ativan) 0.5 mg PO TID PRN anxiety #90 tabs 08/18/25 oxycodone 5 mg tablet 5 mg PO Q8HP PRN Moderate Pain 08/19/25 (Scale Score 5-6) #90 tabs Allergies Allergy/AdvReac Type Severity Reaction Status Date / Time diclofenac Allergy Unknown Unknown Verified 08/20/25 02:57 [facility] Dis[facility]: The information contained in this section may have been updated after the patient was seen, as this information can be updated by other users. Medical History (Updated 08/20/25 @ 05:43 by Clem Ko MD) History of lung cancer in adulthood Chronic respiratory failure with hypoxia Lung mass Smoking greater than 30 pack years Sepsis Parapneumonic effusion Pneumonia Acute hypoxemic respiratory failure Acute exacerbation of chronic obstructive pulmonary disease Pericardial effusion Shortness of Breath Pleural effusion on right Pleural effusion, left Acute and chronic respiratory failure with hypoxia Lung cancer Onychomycosis Cataracts, bilateral Alteration in physical mobility Abnormal gait Generalized muscle weakness Constipation Pleural effusion Heart failure HTN (hypertension) Depressive disorder Delirium Hyperlipemia Protein calorie malnutrition Malignant neoplasm Sepsis Insomnia Mood disorder Chronic iron deficiency anemia BPH (benign prostatic hyperplasia) A-fib Hypoxic respiratory failure COPD (chronic obstructive pulmonary disease) S/P radiation therapy Cancer of right lung CAD (coronary artery disease) Surgical History History of cholecystectomy Presence of coronary angioplasty implant and graft Social History (Updated 08/14/25 @ 10:02 by Gale Paez RN) Smoking Status: Former smoker tobacco type: cigarettes years smoked: 20 smoking status stop date: april 2024 how long ago did patient quit smokin year quit status: considering quitting alcohol intake: never current occupational status: retired Travel in the last 8 weeks?: None marital status: single number of children: 0 Other Medical History Have you received the Flu Vaccine for this season: No Have you received the Pneumonia Vaccine: No ROS Obtained: Yes All systems reviewed & no additional complaints except as documented Physical Exam General General appearance: alert and in no apparent distress Head Head exam: atraumatic and normocephalic Eye Eye exam: Present normal appearance, PERRL and EOMI ENT ENT exam: Present normal oropharynx and normal external ear exam Neck Neck exam: Present normal inspection and full ROM Chest Chest inspection: Present normal inspection and symmetric chest wall rise; Absent tenderness Respiratory Respiratory exam: Absent respiratory distress Cardiovascular Cardiovascular exam: Present regular rate and normal rhythm Abdominal Exam Abdominal exam: Present soft; Absent distention, tenderness or guarding Extremities Exam Extremities exam: Present normal inspection; Absent edema or joint swelling Back Exam Back exam: Present normal inspection and tenderness (Diffuse) Neurological Exam Neurological exam: Present alert; Absent oriented X3 (Oriented x 2) or motor sensory deficit Psychiatric Psychiatric exam: Present normal affect and normal mood Skin Skin exam: Present warm, dry and normal color Lymphatic Lymphatic Findings: no adenopathy Medical Decision Making Medical Records Medical records reviewed: Yes I reviewed the patient's medical records. Screening: Per USPSTF and CDC recommendations, given the prevalence of disease in our region, it is our hospital?s policy to screen for HIV and viral Hepatitis for all patients aged 18 and over and those with ongoing risk factors. Julián Inquiry Pt receiving controlled substance: No Julián was queried for this patient: No Vital Signs: 08/20/25 02:52 08/20/25 03:18 08/20/25 04:30 Temperature 98.0 F Temperature Source Oral Pulse Rate 81 Pulse Rate [Right] 93 H Respiratory Rate 18 Blood Pressure 126/81 Blood Pressure [Right Arm] 113/70 Blood Pressure Mean 93 Blood Pressure Mean [Right Arm] 84 02 Sat by Pulse Oximetry 99 99 97 Oxygen Delivery Method Nasal Cannula Nasal Cannula Oxygen Flow Rate (LPM) 4 2 Lab Data Lab results reviewed: Yes I reviewed the patient's lab results. Orders (Tests/Meds): ED MEDICATIONS Discontinued Medications Generic Name Dose Route Start Last Admin Trade Name Freq PRN Reason Stop Dose Admin Acetaminophen 1,000 mg 08/20/25 03:00 08/20/25 03:12 Acetaminophen 500mg Tab PO 08/20/25 03:01 1,000 mg ONCE ONE Administration ORDERS Category Date Time Status CT abdomen pelvis wo con Stat Cat Scan 08/20/25 03:[address] cervical spine wo con Stat Cat Scan 08/20/25 03:[address] chest wo con Stat Cat Scan 08/20/25 03:[address] head/brain wo con Stat Cat Scan 08/20/25 03:[address] lumbar spine wo con Stat Cat Scan 08/20/25 03:[address] thoracic spine wo con Stat Cat Scan 08/20/25 03:03 Completed Medical Decision Narrative: 69-year-old male with extensive past medical history including lung cancer, chronic pleural effusion, hypertension presents for witnessed fall out of his wheelchair. Did not hit his head or sustain significant trauma history was obtained via interactive discussion with patient, EMS. On arrival, patient is [afebrile, hemodynamically stable, satting appropriately, alert, oriented x2, GCS 15], moving all extremities spontaneously. Full physical exam performed and significant for tenderness over the spine Differential includes but is not limited to intracranial trauma to thoracic trauma intra-abdominal trauma spine trauma extremity trauma. Patient was given Tylenol for symptomatic management and correction of underlying abnormalities. Workup initiated including Noncon CT scans of the head chest abdomen pelvis and spine. On re-evaluation, patient [remains afebrile, HD stable.] Imaging independently interpreted by me and significant for numerous chronic findings including collapse of the right lower lobe secondary to pleural effusion, chronic wedge-shaped deformities in the spine, no intracranial bleeding, no signs of acute trauma. See radiology read for full review of final results. Given patient history, exam and workup, patient's presentation most likely represents fall without evidence of new trauma. Patient was discharged back to nursing facility in stable condition. Procedures Risk/Benefits of Procedure(s) Were Explained: Yes Critical Care Critical Care Time Critical Care Time: No
[2025-08-20] MEDS: ACETAMINOPHEN 500MG TAB 1000 MG PO (03:12)
--- OUTSIDE RECORDS SUMMARY | 2025-08-20 03:19 | XMS_ITS | Clinical Summary ---
Author Organization [facility] Address [address] [place] [address] Phone Care Team Providers Care Field Auditor Name Role Phone Unavailable Unavailable Conditions or Problems No information available. Medications No information available. Medications Administered No information available. Allergies, Adverse Reactions, Alerts No information available. Results No information available. Plan of Care No information available. Procedures No information available. Vital Signs No information available. Immunizations No information available. Advance Directives No information available.
== END 2025-08-20 06:05 ==
PROVIDERS: Emergency Provider Emergency Medicine; PCP Family Medicine
DX: M54.50 Low back pain, unspecified (principal); W05.0XXA Fall from non-moving wheelchair, initial encounter
CPT/HCPCS: 70450; 71250; 72125; 72128; 72131; 74176; 99285

== ENCOUNTER 2025-08-20 09:12 | Outpatient (CLI) | payer MEDICARE, MEDICAID, SELFPAY ==
--- OUTSIDE RECORDS SUMMARY | 2025-08-20 09:29 | XMS_ITS | Clinical Summary ---
Author Organization [facility] Address [address] [place] [address] Phone Care Team Providers Care [employer] Mathematics Teacher Name Role Phone Unavailable Unavailable Conditions or Problems No information available. Medications No information available. Medications Administered No information available. Allergies, Adverse Reactions, Alerts No information available. Results No information available. Plan of Care No information available. Procedures No information available. Vital Signs No information available. Immunizations No information available. Advance Directives No information available.
[2025-08-20] MEDS: IRON SUCROSE COMPLEX 100 MG in 0.9 % SODIUM CHLORIDE 100 ML 220 MG IV (09:39)
[2025-08-20] MEDS: SODIUM CHLORIDE 0.9% 10ML FLUSH SYRINGE 10 ML IV (09:40)
[2025-08-20 09:41] VITALS: BP 104/58; PULSE 82; RESP 18; TEMP 37.1; O2SAT 93
[2025-08-20 10:25] VITALS: BP 102/50; PULSE 72; RESP 16; O2SAT 94
== END 2025-08-20 10:27 | disposition home or self-care (01) ==
LOC: INF 09:13
PROVIDERS: PCP Family Medicine; Visit Provider Family Medicine
DX: D50.9 Iron deficiency anemia, unspecified (principal)
CPT/HCPCS: 96365; J1756